=== PATIENT | female | born 2000 | race Hispanic/Latino ===

== ENCOUNTER 2020-04-04 16:02 | Emergency (ER) | payer OTHER, MEDICAID, SELFPAY ==
[2020-04-04 16:10] VITALS: BP 126/73; PULSE 73; RESP 16; TEMP 36.7; O2SAT 97; BMI 21.9
--- NOTE | 2020-04-04 18:00 | ED.FEMALEGU ---
HPI - Female Genitourinary General Chief complaint: OB/Uterine Contractions Stated complaint: NON STOP PERIOD Time Seen by Provider: 04/04/20 17:52 Source: patient Mode of arrival: Ambulatory Limitations: no limitations Patient History Substance Use Type: does not use Exam Initial Vital Signs Initial Vital Signs: Vital Signs Temperature 98.0 F 04/04/20 16:10 Pulse Rate 73 04/04/20 16:10 Respiratory Rate 16 04/04/20 16:10 Blood Pressure 126/73 04/04/20 16:10 Pulse Oximetry 97 04/04/20 16:10 Course Vital Signs Vital signs: Vital Signs - 8 hr 04/04/20 16:10 Temperature 98.0 F Pulse Rate 73 Respiratory Rate 16 Blood Pressure 126/73 Pulse Oximetry 97
--- NOTE | 2020-04-04 18:10 | DI.US.S_ITS ---
PROCEDURE: US OB <= 14 WEEKS FETUS INDICATIONS: 11 weeks bleeding TECHNIQUE: Real-time scanning was performed of the fetus and maternal pelvic organs, with image documentation. Endovaginal scanning was also performed to better visualize the fetus and maternal ovaries. COMPARISON: None. FINDINGS: Embryo: No intrauterine gestational sac is seen. Uterus measures 8.8 x 4.4 x 5.8 cm in size. Endometrium measures 7 millimeters in thickness. No pole or cardiac activity is detected. Measurement variability in dating: +/- 4 weeks by LMP, +/- 7 days by mean sac diameter (use before 6 weeks gestation if crown-rump length not able to be measured), +/- 5 days by crown-rump length (up to 8 weeks 6 days gestation), +/- 7 days by crown-rump length (up to 13 weeks 6 days gestation). Maternal organs: Right ovary is surgically absent. Left ovary measures 4 x 1.9 x 2.9 cm in size. No solid appearing ovarian lesion. Normal blood flow is seen in left ovary on color Doppler images.. Limited images through the kidneys demonstrate no hydronephrosis. IMPRESSION: 1. No evidence of intrauterine . Please correlate with serial beta hCG levels and follow-up ultrasound. 2. Prior surgical absence of right ovary. Normal appearing left ovary. No pelvic free fluid. Dictated by: Zana Echeverria M.D. on 04/04/2020 at 18:25 Approved by: Zana Echeverria M.D. on 04/04/2020 at 18:27
[2020-04-04 18:14] VITALS: PULSE 79; O2SAT 100
[2020-04-04 18:30] VITALS: BP 113/68; PULSE 81; O2SAT 100
[2020-04-04 19:00] VITALS: BP 104/59; PULSE 72; O2SAT 100
--- NOTE | 2020-04-04 19:03 | ED_ITS ---
HPI - Female Genitourinary General Chief complaint: OB/Uterine Contractions Stated complaint: NON STOP PERIOD Time Seen by Provider: 04/04/20 17:52 Source: patient Mode of arrival: Ambulatory Limitations: no limitations History of Present Illness HPI Narrative: 19F non smoker without medical history presents is at 11 weeks (by dates) with the chief complaint of painless vaginal bleeding over the past 2 weeks or so. She states that is very light, spotting most the time but on 2 occasions she did pass a small clot. She denies any ongoing pain but states she had a very quick episode a few days ago. She has had no nausea or vomiting nor any fever chills. She denies any urinary complaints. She had been seen by her primary care provider but was in the process of being referred to our associate professor of criminal justice today and was actually initially sent to [facility] today, but then sent here from there. She is not dizzy nor weak or lightheaded. She denies any shortness of breath. She denies any ultrasounds thus far. MD Complaint: vaginal bleeding Onset (ago): week(s) Severity: mild Vaginal discharge: dark blood Patient : Yes Associated symptoms: vaginal bleeding Review of Systems Constitutional Constitutional: Denies chills, Denies fatigue, Denies fever(s), Denies frequent falls, Denies lethargy and Denies weakness Eyes Eyes: Denies change in vision, Denies eye discharge, Denies irritation and Denies loss of vision ENT Ears, Nose, Mouth, and Throat: Denies change in voice, Denies dizziness, Denies neck pain, Denies sore throat and Denies throat swelling Cardiovascular Cardiovascular: Denies chest pain, Denies irregular heart rhythm, Denies lightheadedness, Denies palpitations, Denies dyspnea, Denies dyspnea on exertion and Denies orthopnea Respiratory Respiratory: Denies cough, Denies dyspnea, Denies dyspnea on exertion and Denies wheezing Gastrointestinal Gastrointestinal: Denies abdominal pain, Denies change in bowel habits, Denies diarrhea, Denies nausea and Denies vomiting Genitourinary Genitourinary: Reports abnormal vaginal bleeding Musculoskeletal Musculoskeletal: Denies neck pain and Denies numbness Integumentary/Breasts Skin/Breast: Denies pruritus, Denies erythema, Denies rash and Denies wounds Neurologic Neurologic: Denies behavioral changes, Denies confusion, Denies dizziness, Denies frequent falls, Denies loss of vision, Denies numbness and Denies weakness Psychiatric Psychiatric: Denies anxiety, Denies behavioral changes, Denies confusion, Denies depression, Denies homicidal ideation and Denies suicidal ideation Endocrine Endocrine: Denies fatigue, Denies flushing and Denies palpitations Hematologic/Lymphatic Hematologic/Lymphatic: Denies easy bruising Allergic/Immunologic Allergic/Immunologic: Denies urticaria, Denies throat swelling and Denies wheezing Patient History Substance Use Type: does not use Exam Narrative Exam Narrative: GENERAL: 19] year old patient appears stated age. Well- nourished, well-developed patient, in mild distress. HEAD: Atraumatic. Normocephalic. EYES: Pupils equal round and reactive. Extraocular motions intact. No scleral icterus. No injection or drainage. ENT: Nose without bleeding, purulent drainage. Throat without erythema, tonsillar hypertrophy or exudate. Airway patent. NECK: Trachea midline. Non tender CARDIOVASCULAR: Regular rate and rhythm without murmurs, gallops, or rubs. RESPIRATORY: Clear to auscultation. Breath sounds equal bilaterally. No wheezes, rales, or rhonchi. GASTROINTESTINAL: Abdomen soft, non-tender, nondistended. EXTREMITIES: No edema or joint tenderness. BACK: Nontender without deformity or crepitance. No flank tenderness. NEURO: AOx3. SKIN: No rash or erythema of visible areas Initial Vital Signs Initial Vital Signs: Vital Signs Temperature 98.0 F 04/04/20 16:10 Pulse Rate 73 04/04/20 16:10 Respiratory Rate 16 04/04/20 16:10 Blood Pressure 126/73 04/04/20 16:10 Pulse Oximetry 97 04/04/20 16:10 Course Orders Ordered: ED Orders 04/04/20 18:10 US OB <= 14 weeks fetus Stat 04/04/20 18:34 Basic Metabolic Panel Stat Complete Blood Count AUTO DIFF Stat HCG Quantitative /Beta subunit Stat Type and Screen Stat Vital Signs Vital signs: Vital Signs - 8 hr 04/04/20 19:00 04/04/20 19:30 04/04/20 20:24 Pulse Rate 72 72 77 Respiratory Rate 14 Blood Pressure 104/59 L 111/71 114/71 Pulse Oximetry 100 99 99 MDM - Female Genitourinary Lab Data Result diagrams: 04/04/20 18:34 04/04/20 18:34 Labs: Lab Results 04/04/20 04/04/20 04/04/20 Range/Units 18:34 18:34 18:34 WBC 6.4 (4.5-11.0) X10^3/uL RBC 4.81 (4.0-5.2) X10^6/uL Hgb 13.9 (12.0-16.0) g/dL Hct 41.6 (36-46) % MCV 86.6 (80-100) fL MCH 28.9 (26-34) PG MCHC 33.4 (30-36) % RDW 13.8 (11.6-14.8) % Plt Count 202 (150-400) X10^3/uL Neut % (Auto) 60.5 (50-75) % Lymph % (Auto) 29.0 (25-40) % Clinch % (Auto) 7.9 (3-14) % Eos % (Auto) 2.3 (2-4) % Baso % (Auto) 0.3 (0-2) % Neut # (Auto) 3900 (4507-2105) /uL Lymph # (Auto) 1900 (2273-7326) /uL Clinch # (Auto) 500 (0-900) /uL Eos # (Auto) 100 (0-450) /uL Baso # (Auto) 0 (0-100) /uL Sodium 139 (137-145) mmol/L Potassium 3.9 (3.4-5.1) mmol/L Chloride 105 (98-107) mmol/L Carbon Dioxide 27 (22-32) mmol/L BUN 9 (7-17) mg/dL Creatinine 0.52 (0.52-1.04) mg/dL Estimated GFR > 60.0 (>60) mL/min BUN/Creatinine Ratio 17.3 (6-22) Glucose 90 (70-100) mg/dL Calcium 9.5 (8.4-10.2) mg/dL HCG, Quant 48.5 mIU/mL Blood Type O Positive Antibody Screen Negative Imaging Data US - OB: Radiologist's Impression: [address] [id number] ReportSigned Patient: Melvi Valenzuelamervat#: [id number]: 2000Acct:[id number]/Sex: 19 / FDate of Service: 04/04/20Loc: EDAccession Number: [id number] Procedure: US OB <= 14 weeks fetus Ordering Provider: Konstantin Mckeon D.O. PROCEDURE: US OB <= 14 WEEKS FETUS INDICATIONS: 11 weeks bleeding TECHNIQUE: Real-time scanning was performed of the fetus and maternal pelvic organs, with image documentation. Endovaginal scanning was also performed to better visualize the fetus and maternal ovaries. COMPARISON: None. FINDINGS: Embryo: No intrauterine gestational sac is seen. Uterus measures 8.8 x 4.4 x 5.8 cm in size. Endometrium measures 7 millimeters in thickness. No pole or cardiac activity is detected. Measurement variability in dating: +/- 4 weeks by LMP, +/- 7 days by mean sac diameter (use before 6 weeks gestation if crown-rump length not able to be measured), +/- 5 days by crown-rump length (up to 8 weeks 6 days gestation), +/- 7 days by crown-rump length (up to 13 weeks 6 days gestation). Maternal organs: Right ovary is surgically absent. Left ovary measures 4 x 1.9 x 2.9 cm in size. No solid appearing ovarian lesion. Normal blood flow is seen in left ovary on color Doppler images.. Limited images through the kidneys demonstrate no hydronephrosis. IMPRESSION: 1. No evidence of intrauterine . Please correlate with serial beta hCG levels and follow-up ultrasound. 2. Prior surgical absence of right ovary. Normal appearing left ovary. No pelvic free fluid. Dictated by: Zana Echeverria M.D. on 04/04/2020 at 18:25 Approved by: Zana Echeverria M.D. on 04/04/2020 at 18:27 MDM Narrative Medical decision making narrative: at 11 weeks by dates with spotting and no pain. HCG only in the 40s and US demonstrates no IUP. Likely a missed AB, but explained importance of follow up and serial labs to rule out ectopic. Patient verbalizes understanding. She's given return precautions and has questions answered to her apparent satisfaction Discharge Plan Departure Patient Disposition: Home Clinical Impression: , missed Instructions: DI for Vaginal Bleeding During Activity Restrictions/Additional Instructions: *You have been diagnosed with [ vaginal bleeding with . Given the duration and lack of findings on ultrasound I am concerned you may have had a miscarriage. ] *What to do: *Take medications as directed: Tylenol or Motrin for pain *Follow up with your primary care provider in 2-3 days, call for an appointment. Let them know you were seen in the Emergency Department and that we ask that you be seen in follow up. Also, please consider contacting our local brickmason supervisor doctors to follow this up. You will need repeat blood work in 48-72 hours and possibly another ultrasound *Return to ER if you should have any new, worsening or concerning symptoms, such as [pain, fever greater than 101 F, bleeding through more than 1 pad per hour or other bothersome symptoms] Referrals: Magali Wadsworth MD [Physician] - Miscellaneous,MD Filomena [Primary Care Provider] -
[2020-04-04 19:09] LABS: Add Manual Diff / Slide Review NO; Basophils Absolute Auto 0 /uL (0-100); Basophils Percent Auto 0.3 % (0-2); Eosinophils Absolute Auto 100 /uL (0-450); Eosinophils Percent Auto 2.3 % (2-4); Hematocrit 41.6 % (36-46); Hemoglobin 13.9 g/dL (12.0-16.0); Lymphocytes Absolute Auto 1900 /uL (1100-4500); Mean Corpuscular HGB Conc 33.4 % (30-36); Mean Corpuscular Hemoglobin 28.9 PG (26-34); Mean Corpuscular Volume 86.6 fL (80-100); Monocytes Absolute Auto 500 /uL (0-900); Monocytes Percent Auto 7.9 % (3-14); Neutrophils Absolute Auto 3900 /uL (1500-7000); Neutrophils Percent Auto 60.5 % (50-75); Platelet Count 202 X10^3/uL (150-400); Red Blood Cell Count 4.81 X10^6/uL (4.0-5.2); Red Cell Distribution Width 13.8 % (11.6-14.8); White Blood Cell Count 6.4 X10^3/uL (4.5-11.0)
[2020-04-04 19:12] LABS: BUN Creatinine Ratio 17.3 (6-22); Blood Urea Nitrogen 9 mg/dL (7-17); Calcium 9.5 mg/dL (8.4-10.2); Carbon Dioxide 27 mmol/L (22-32); Chloride 105 mmol/L (98-107); Estimated Glomerular Filt Rate > 60.0 mL/min (>60); Glucose 90 mg/dL (70-100); HEMOLYSIS < 15 (0-50); Potassium 3.9 mmol/L (3.4-5.1); Sodium 139 mmol/L (137-145)
[2020-04-04 19:29] LABS: HCG Quantitative /Beta subunit 48.5 mIU/mL
[2020-04-04 19:30] VITALS: BP 111/71; PULSE 72; O2SAT 99
[2020-04-04 20:24] VITALS: BP 114/71; PULSE 77; RESP 14; O2SAT 99
== END 2020-04-04 20:25 | disposition home or self-care (01) ==
PROVIDERS: Emergency Provider Emergency Medicine
DX: O02.1 Missed abortion (principal)
CPT/HCPCS: 36415; 76801; 76830; 80048; 84702; 85025; 86850; 86900; 86901; 99281; 99284

== ENCOUNTER → 2020-04-06 13:21 | Outpatient (CLI) | payer OTHER, MEDICAID, SELFPAY ==
[2020-04-06 15:13] LABS: HCG Quantitative /Beta subunit 30.5 mIU/mL
== END ==
PROVIDERS: Referring Provider Obstetrics & Gynecology; Visit Provider Obstetrics & Gynecology
DX: O02.1 Missed abortion (principal)
CPT/HCPCS: 36415; 84702

== ENCOUNTER → 2020-08-17 11:17 | Outpatient (CLI) | payer OTHER, MEDICAID, SELFPAY ==
--- NOTE | 2020-08-17 11:18 | DI.US.S_ITS ---
PROCEDURE: US OB <= 14 WEEKS FETUS INDICATIONS: DATING AND VIABILITY. LAST MENSTRUAL PERIOD 06/18/20 OUTSIDE/PRIOR DATING DATA: Last menstrual period (LMP): 06/18/20 LMP-based estimated date of delivery (ROSALINDA): 03/25/21. First dating scan (date and location): This study. Estimated date of delivery (ROSALINDA) from first dating scan: 04/11/21, +/-7 days, based on gestational sac visualization.. TECHNIQUE: Real-time scanning was performed of the fetus and maternal pelvic organs, with image documentation. Endovaginal scanning was also performed to better visualize the fetus and maternal ovaries. COMPARISON: [facility], OB <= 14 WEEKS FETUS, 04/04/2020, 18:38. FINDINGS: Embryo: Not seen but a yolk sac within a gestational stack is present with a mean sac diameter 1.3 cm. This correlates with a gestational age estimate of 6 weeks 1 day, +/-7 days based on mean sac diameter. What appears to be potentially a pole is identified, but without cardiac activity. A small perigestational hematoma appears present adjacent to the gestational sac measuring 1.4 x 1.6 x 4.0 cm. Measurement variability in dating: +/- 4 weeks by LMP, +/- 7 days by mean sac diameter (use before 6 weeks gestation if crown-rump length not able to be measured), +/- 5 days by crown-rump length (up to 8 weeks 6 days gestation), +/- 7 days by crown-rump length (up to 13 weeks 6 days gestation). Maternal organs: Ovaries appear normal. IMPRESSION: An intrauterine gestational sac with yolk sac within is present but a viable gestation is not yet seen. The current estimated gestational age is 6 weeks 1 day, +/-7 days, and follow-up repeat OB ultrasound in 7-10 days is likely warranted. No ectopic is suspected. Note is made of a small perigestational implantation bleed measuring 1.4 x 1.6 x 4.0 cm. Dictated by: Ming Pereyra M.D. on 08/17/2020 at 15:33 Approved by: Ming Pereyra M.D. on 08/17/2020 at 15:49
== END ==
PROVIDERS: PCP Physician Assistant Medical; Referring Provider Family Medicine; Visit Provider Family Medicine
DX: Z36.87 Encounter for antenatal screening for uncertain dates (principal); Z3A.01 Less than 8 weeks gestation of pregnancy
CPT/HCPCS: 76801; 76830

== ENCOUNTER → 2020-08-22 12:36 | Outpatient (CLI) | payer OTHER, MEDICAID, SELFPAY ==
[2020-08-22 14:52] LABS: HCG Quantitative /Beta subunit 21123 mIU/mL
== END ==
PROVIDERS: PCP Physician Assistant Medical; Referring Provider Family Medicine; Visit Provider Family Medicine
DX: Z34.90 Encounter for supervision of normal pregnancy, unspecified, unspecified trimester (principal)
CPT/HCPCS: 36415; 84702

== ENCOUNTER → 2020-08-24 09:24 | Outpatient (CLI) | payer OTHER, MEDICAID, SELFPAY | PROVIDERS: PCP Physician Assistant Medical; Referring Provider Family Medicine; Visit Provider Family Medicine | DX: Z34.90 Encounter for supervision of normal pregnancy, unspecified, unspecified trimester (principal) | CPT/HCPCS: 36415; 84702 ==

== ENCOUNTER → 2020-09-14 10:39 | Outpatient (CLI) | payer OTHER, MEDICAID, SELFPAY ==
--- NOTE | 2020-09-14 10:40 | DI.US.S_ITS ---
PROCEDURE: US PELVIC COMPLETE INDICATIONS: missed ab TECHNIQUE: Real-time scanning was performed of the pelvic organs, with image documentation. Additional endovaginal scanning was necessary due to incomplete visualization of the adnexal and endometrial structures by transabdominal scanning. COMPARISON: None. FINDINGS: Uterus: Uterus is normal in size at 5 x 4.6 x 6.1 cm. The endometrial stripe is thickened and irregular, measuring up to 17 mm. Along the endometrial stripe, there is nonvascular debris seen. No abnormal vascularity can be seen along the endometrial stripe. Ovaries: Status post right oophorectomy. The left ovary measures 3.6 x 2 x 2.4 cm. No adnexal masses are seen on either side. Other: No pathologic free abdominal or pelvic fluid. IMPRESSION: No hypervascular retained products of conception can be seen. Heterogeneous nonvascular soft tissue can be seen along the endometrial stripe, which is attributed to hemorrhagic debris. If clinically appropriate, please consider short-term follow-up ultrasound. Dictated by: Sebastian Oconnell M.D. on 09/14/2020 at 11:24 Approved by: Sebastian Oconnell M.D. on 09/14/2020 at 11:25
== END ==
PROVIDERS: PCP Physician Assistant Medical; Referring Provider Family Medicine; Visit Provider Family Medicine
DX: O02.1 Missed abortion (principal); Z3A.01 Less than 8 weeks gestation of pregnancy
CPT/HCPCS: 36415; 76830; 76856; 84702

== ENCOUNTER → 2020-09-14 11:27 | Outpatient (CLI) | payer OTHER, MEDICAID, SELFPAY ==
[2020-09-14 12:55] LABS: HCG Quantitative /Beta subunit 1561.6 mIU/mL
== END ==
PROVIDERS: PCP Physician Assistant Medical; Referring Provider Family Medicine; Visit Provider Family Medicine
DX: O02.1 Missed abortion (principal); Z3A.01 Less than 8 weeks gestation of pregnancy
CPT/HCPCS: 36415; 84702

== ENCOUNTER → 2020-09-21 15:30 | Outpatient (CLI) | payer OTHER, MEDICAID, SELFPAY ==
[2020-09-21 16:41] LABS: HCG Quantitative /Beta subunit 80.7 mIU/mL
== END ==
PROVIDERS: PCP Physician Assistant Medical; Referring Provider Family Medicine; Visit Provider Family Medicine
DX: Z34.90 Encounter for supervision of normal pregnancy, unspecified, unspecified trimester (principal); Z3A.01 Less than 8 weeks gestation of pregnancy
CPT/HCPCS: 36415; 84702

== ENCOUNTER → 2020-09-27 17:34 | Outpatient (CLI) | payer OTHER, MEDICAID, SELFPAY | PROVIDERS: PCP Physician Assistant Medical; Referring Provider Family Medicine; Visit Provider Family Medicine | DX: O02.1 Missed abortion (principal) | CPT/HCPCS: 36415; 84702 ==

== ENCOUNTER → 2020-12-21 14:07 | Outpatient (CLI) | payer OTHER, MEDICAID, SELFPAY ==
[2020-12-21 18:38] LABS: HCG Quantitative /Beta subunit 12750 mIU/mL
== END ==
PROVIDERS: PCP Physician Assistant Medical; Referring Provider Family Medicine; Visit Provider Family Medicine
DX: Z34.81 Encounter for supervision of other normal pregnancy, first trimester (principal)
CPT/HCPCS: 36415; 84702

== ENCOUNTER → 2020-12-23 08:08 | Outpatient (CLI) | payer OTHER, MEDICAID, SELFPAY ==
--- NOTE | 2020-12-23 08:09 | DI.US.S_ITS ---
PROCEDURE: US OB <= 14 WEEKS FETUS INDICATIONS: RULE OUT ECTOPIC OUTSIDE/PRIOR DATING DATA: Last menstrual period (LMP): 11/07/20. LMP-based estimated date of delivery (ROSALINDA): 08/14/21. First dating scan (date and location): 12/23/20, current study. Estimated date of delivery (ROSALINDA) from first dating scan: 08/18/21. TECHNIQUE: Real-time scanning was performed of the fetus and maternal pelvic organs, with image documentation. Endovaginal scanning was also performed to better visualize the fetus and maternal ovaries. COMPARISON: [facility], OB <= 14 WEEKS FETUS, 08/17/2020, 11:25. FINDINGS: Embryo: An intrauterine is present including a single pole with an average crown-rump length of 3.5 mm corresponding to a six week, 0 day, plus or minus four days gestation. There is detectable cardiac activity in the fetus at a rate of 110 beats per minute. A normal yolk sac is present. Measurement variability in dating: +/- 4 weeks by LMP, +/- 7 days by mean sac diameter (use before 6 weeks gestation if crown-rump length not able to be measured), +/- 5 days by crown-rump length (up to 8 weeks 6 days gestation), +/- 7 days by crown-rump length (up to 13 weeks 6 days gestation). Maternal organs: Vertically oriented, slightly retroflexed uterus contains a fundal gestational sac with a mild decidual response. There is a small perigestational bleed measuring 3.4 x 2.4 x 1.1 cm. The right ovary is surgically absent. The left ovary appears normal and contains a corpus luteum cyst. There is a small amount of fluid in the cul-de-sac. IMPRESSION: 1. Single living intrauterine with a gestational age of six weeks, 0 days, and estimated due date of 08/18/21. 2. Small perigestational hemorrhage. The cervix is closed. Clinical follow-up recommended. Dictated by: Rhona Bardales M.D. on 12/23/2020 at 12:15 Approved by: Rhona Bardales M.D. on 12/23/2020 at 12:19
[2020-12-23 11:04] LABS: HCG Quantitative /Beta subunit 18705 mIU/mL
== END ==
PROVIDERS: PCP Physician Assistant Medical; Referring Provider Family Medicine; Visit Provider Family Medicine
DX: O46.91 Antepartum hemorrhage, unspecified, first trimester (principal); Z3A.01 Less than 8 weeks gestation of pregnancy
CPT/HCPCS: 36415; 76801; 76817; 84702

== ENCOUNTER → 2021-01-09 14:19 | Outpatient (CLI) | payer OTHER, MEDICAID, SELFPAY ==
[2021-01-09 15:32] LABS: Appearance Urine UA CLEAR; Bilirubin Urine UA NEGATIVE (NEGATIVE); Color Urine UA YELLOW; Glucose Urine UA NEGATIVE (Negative); Ketones Urine UA NEGATIVE (NEGATIVE); Leukocyte Esterase Urine UA NEGATIVE (NEGATIVE); Nitrite Urine UA NEGATIVE (Negative); Occult Blood Urine UA NEGATIVE (Negative); Protein Urine UA NEGATIVE (Negative); Specific Gravity Urine UA 1.015 (1.000-1.035); Urobilinogen Urine UA 0.2 E.U./dL (0.2)
[2021-01-09 15:34] LABS: Add Manual Diff / Slide Review NO; Basophils Absolute Auto 0 /uL (0-100); Basophils Percent Auto 0.3 % (0-2); Eosinophils Absolute Auto 0 /uL (0-450); Eosinophils Percent Auto 0.5 % (2-4); Hematocrit 37.7 % (36-46); Hemoglobin 12.5 g/dL (12.0-16.0); Lymphocytes Absolute Auto 1800 /uL (1100-4500); Lymphocytes Percent Auto 26.3 % (25-40); Mean Corpuscular HGB Conc 33.2 % (30-36); Mean Corpuscular Hemoglobin 28.2 PG (26-34); Monocytes Absolute Auto 600 /uL (0-900); Monocytes Percent Auto 8.2 % (3-14); Neutrophils Absolute Auto 4400 /uL (1500-7000); Neutrophils Percent Auto 64.7 % (50-75); Platelet Count 193 X10^3/uL (150-400); Red Blood Cell Count 4.43 X10^6/uL (4.0-5.2); Red Cell Distribution Width 13.9 % (11.6-14.8); White Blood Cell Count 6.8 X10^3/uL (4.5-11.0)
[2021-01-09 15:53] LABS: pH Urine UA 7.5 (4.5-8.0)
[2021-01-09 18:11] LABS: Hepatitis B Surface Antigen NEGATIVE s/c (NEGATIVE); Rubella Antibody IgG 4.4 IU/mL (>15)
[2021-01-09 18:40] LABS: HIV 1 & 2 Ab/Ag 4th Gen Combo NEGATIVE (NEGATIVE); Hep C Virus Ab w/Reflex Quant NEGATIVE s/c (NEGATIVE)
[2021-01-10 07:10] LABS: RPR Screen Non Reactive (Non Reactive)
[2021-01-10 08:40] LABS: Varicella IgG Antibody 298 index (Immune >165)
== END ==
PROVIDERS: PCP Physician Assistant Medical; Referring Provider Family Medicine; Visit Provider Family Medicine
DX: Z34.81 Encounter for supervision of other normal pregnancy, first trimester (principal)
CPT/HCPCS: 36415; 80055; 81003; 86787; 86803; 86850; 86900; 86901; 87086; 87389

== ENCOUNTER → 2021-04-18 12:15 | Outpatient (CLI) | payer OTHER, MEDICAID, SELFPAY ==
--- NOTE | 2021-04-18 12:16 | DI.US.S_ITS ---
PROCEDURE: US OB >= 14 WEEKS FETUS INDICATIONS: ANATOMY SCREENING OUTSIDE/PRIOR DATING DATA: Last menstrual period (LMP): November 07, 2020 LMP-based estimated date of delivery (ROSALINDA): August 14, 2021 First dating scan (date and location): December 23, 2020 Estimated date of delivery (ROSALINDA) from first dating scan: August 18, 2021 The calculations are made using the ultrasound ROSALINDA of August 18, 2021 TECHNIQUE: Real-time scanning was performed of the fetus, with image documentation and biometric measurements. Endovaginal scanning: Performed COMPARISON: None. FINDINGS: General: A single living intrauterine gestation is present. Presentation: Variable Placenta: Placental position is anterior, without previa. Amniotic fluid index: 16.6 cm, normal range is 5-24 cm. Single deepest vertical pocket is 5.1 cm. heart rate: 145 beats per minute. Maternal cervical canal: Closed and 5.2 cm long. Normal lower limit is 2.5 cm. biometrics: Biparietal diameter: 22 weeks 6 days Head circumference: 22 weeks 5 days Abdominal circumference: 23 weeks 0 days Femur length: 22 weeks 5 days Clinically estimated gestational age: 22 weeks 4 days Composite gestational age from present scan: 22 weeks 6 days Estimated weight and percentile: 538 grams; 56th percentile Anatomic survey: Neuro: Ventricles are non-dilated at less than 10 mm. Cisterna magna is normal at 3-11 mm. Cerebellum is normal in size and morphology. Nuchal skin fold: Normal at less than 6 mm between 14-21 weeks gestational age. Face: Nose and lips, facial profile are normal. Spine: No evidence for spina bifida. Heart: 4-chambered heart is present, with normal ventricular outflow tracts. Diaphragm: Diaphragm is intact. Stomach: Left-sided stomach is present. Debris noted within the stomach. Kidneys: No hydronephrosis. Normal is less than 5 mm in 2nd trimester, less than 7 mm in 3rd trimester. Cord: 3-vessel cord has eccentric insertion approximately 2.3 centimeters from placental edge. Bladder: Normal in size. Extremities: All 4 extremities identified. IMPRESSION: 1. Single living intrauterine with appropriate interval growth. 2. Placental cord insertion eccentric at approximately 2.3 centimeters from placental edge. 3. Isoechoic debris within the stomach. Recommend follow-up ultrasound in 2 weeks to ensure resolution of the finding. 4. Otherwise, normal anatomic survey. Dictated by: Dorothea Saini MD, PhD on 04/18/2021 at 15:23 We strive to produce accurate, complete, and clear reports of imaging services. To assist us in improving patient care, this report was composed using standard report templates and voice recognition software. Therefore, it may contain abnormal punctuation, misrecognitions, insertions and/or omissions. Occasional wrong-word or sound-alike substitutions may occur. Though we review the report and make efforts to correct it, we do recommend that the report be read carefully in proper context to recognize any text inaccuracies. Approved by: Dorothea Saini MD, PhD on 04/18/2021 at 15:35
== END ==
PROVIDERS: PCP Physician Assistant Medical; Referring Provider Family Medicine; Visit Provider Family Medicine
DX: Z36.89 Encounter for other specified antenatal screening (principal); Z3A.22 22 weeks gestation of pregnancy
CPT/HCPCS: 76811

== ENCOUNTER → 2021-05-26 11:09 | Outpatient (CLI) | payer OTHER, MEDICAID, SELFPAY ==
--- NOTE | 2021-05-26 11:10 | DI.US.S_ITS ---
PROCEDURE: US OB FOLLOW UP INDICATIONS: anatomy f/u, debris in fetus stomach OUTSIDE/PRIOR DATING DATA: Last menstrual period (LMP): 11/07/2020. LMP-based estimated date of delivery (ROSALINDA): 08/14/2021. First dating scan (date and location): 12/23/2020. Estimated date of delivery (ROSALINDA) from first dating scan: 08/18/2021. TECHNIQUE: Real-time scanning was performed of the fetus, with image documentation and biometric measurements. Endovaginal scanning: None COMPARISON: None. FINDINGS: General: A single living intrauterine gestation is present. Presentation: Transverse maternal right. Placenta: Placental position is anterior , without previa. Amniotic fluid index: 16.9 cm, normal range is 5-24 cm. heart rate: 145 beats per minute. Maternal cervical canal: 3.9 cm long. Normal lower limit is 2.5 cm. Composite gestational age from present scan: 28 week 0 day Anatomic survey: Stomach and stomach contents unremarkable. Remainder of the visualized anatomy is within normal limits IMPRESSION: 1. Single live intrauterine consistent with 28 week 0 day gestation. 2. Stomach and stomach contents unremarkable. Remainder of the visualized anatomy is within normal limits. Note: At the end of the exam, the patient experienced a syncopal episode, and the patient was transferred to the emergency department for evaluation. Approved by: Kuldip Bird M.D. on 05/26/2021 at 12:51
== END ==
PROVIDERS: PCP Physician Assistant Medical; Referring Provider Family Medicine; Visit Provider Family Medicine
DX: Z36.2 Encounter for other antenatal screening follow-up (principal); Z3A.28 28 weeks gestation of pregnancy
CPT/HCPCS: 76816

== ENCOUNTER 2021-05-26 11:51 | Emergency (ER) | payer OTHER, MEDICAID, SELFPAY ==
[2021-05-26] VITALS (12 sets, daily range): BP systolic 86–108; BP diastolic 49–67; PULSE 68–107; RESP 18–41; TEMP 36.2; O2SAT 99–100
[2021-05-26 12:10] LABS: Add Manual Diff / Slide Review NO; Basophils Absolute Auto 0 /uL (0-100); Basophils Percent Auto 0.5 % (0-2); Eosinophils Absolute Auto 0 /uL (0-450); Eosinophils Percent Auto 0.4 % (2-4); Hematocrit 27.8 % (36-46); Hemoglobin 9.3 g/dL (12.0-16.0); Lymphocytes Absolute Auto 1200 /uL (1100-4500); Lymphocytes Percent Auto 24.3 % (25-40); Mean Corpuscular HGB Conc 33.3 % (30-36); Mean Corpuscular Hemoglobin 28.9 PG (26-34); Monocytes Absolute Auto 700 /uL (0-900); Monocytes Percent Auto 14.5 % (3-14); Neutrophils Absolute Auto 2900 /uL (1500-7000); Neutrophils Percent Auto 60.3 % (50-75); Platelet Count 161 X10^3/uL (150-400); Red Cell Distribution Width 13.6 % (11.6-14.8); White Blood Cell Count 4.8 X10^3/uL (4.5-11.0)
--- NOTE | 2021-05-26 12:13 | ED_ITS ---
HPI - Syncope <Live Fong PA-C - Last Filed: 05/26/21 13:34> General Chief Complaint: Syncope Stated Complaint: Syncope Time Seen by Provider: 05/26/21 12:03 Source: patient and other Mode of arrival: other History of Present Illness HPI narrative: Patient is a 21-year-old female presenting to the ER after suffering a syncopal episode and ultrasound department. Patient was here for an outpatient ultrasound after OB had some concerns about the position of the baby. While in ultrasound patient had a syncopal episode witnessed by the biochemistry technologist ED was called to the ultrasound area patient was found to be unresponsive to painful stimuli. Nursing staff reports patient was unresponsive for a few minutes. Patient was taken to the emergency room for evaluation. Patient has regained consciousness is fully awake and alert and oriented. Patient reports the syncopal episodes have been going on for the past few weeks and she has not mentioned this to her OB. She admits to taking folic acid and B12 and has a history of anemia. Patient is . No reported concerns or issues with her thus far patient denies any vaginal bleeding or vaginal discharge or dysuria. is home and has been having fever like symptoms but she denies any fever body aches chills cough loss of sense loss of smell or taste. She is not current on her vaccinations for COVID. She denies any headache visual changes dizziness nausea vomiting diarrhea. Related Data Home Medications Medication Instructions Recorded Confirmed albuterol sulfate 90 mcg/actuation 2 puff INHALATION Q6H PRN 08/17/20 08/17/20 aerosol inhaler prenat.vits,krzysztof,[id number]-[id number]-[id number] 1 tab PO DAILY 08/17/20 08/17/20 Previous Rx's Medication Instructions Recorded ondansetron 4 mg disintegrating 4 mg PO Q8H PRN #10 tab 09/09/20 tablet Allergies Allergy/AdvReac Type Severity Reaction Status Date / Time No Known Drug Allergies Allergy Verified 01/03/21 10:08 Review of Systems <Live Fong PA-C - Last Filed: 05/26/21 13:34> Review of Systems ROS Unobtainable: All systems reviewed & are unremarkable except as noted in HPI and below Constitutional Constitutional: Denies chills, Denies fatigue, Denies fever(s), Denies frequent falls, Denies lethargy and Denies weakness Eyes Eyes: Denies change in vision, Denies eye discharge, Denies irritation and Denies loss of vision ENT Ears, Nose, Mouth, and Throat: Denies change in voice, Denies dizziness, Denies neck pain, Denies sore throat and Denies throat swelling Cardiovascular Cardiovascular: Denies chest pain, Reports syncope, Denies irregular heart rhythm, Denies lightheadedness, Denies palpitations, Denies dyspnea, Denies dys pnea on exertion and Denies orthopnea Respiratory Respiratory: Denies cough, Denies dyspnea, Denies dyspnea on exertion and Denies wheezing Gastrointestinal Gastrointestinal: Denies abdominal pain, Denies change in bowel habits, Denies diarrhea, Denies nausea and Denies vomiting Genitourinary Genitourinary: Denies hematuria, Denies flank pain, Denies urinary incontinence and Denies urinary urgency Musculoskeletal Musculoskeletal: Denies back pain, Denies muscle weakness, Denies neck pain, Denies numbness and Denies tingling Integumentary/Breasts Skin/Breast: Denies pruritus, Denies erythema, Denies rash and Denies wounds Neurologic Neurologic: Denies behavioral changes, Denies confusion, Denies dizziness, Reports syncope, Denies frequent falls, Denies loss of vision, Denies numbness, Denies tingling and Denies weakness Psychiatric Psychiatric: Denies anxiety, Denies behavioral changes, Denies confusion, Denies depression, Denies homicidal ideation and Denies suicidal ideation Endocrine Endocrine: Denies fatigue, Denies flushing and Denies palpitations Hematologic/Lymphatic Hematologic/Lymphatic: Denies easy bruising Allergic/Immunologic Allergic/Immunologic: Denies urticaria, Denies throat swelling and Denies wheezing Patient History <Live Fong PA-C - Last Filed: 05/26/21 13:34> Medical History Cancer (~2013) Exercise-induced asthma (~2019) Germ cell tumor of ovary (~12/2013) Hearing loss (~2013) History of being hospitalized (~2013) History of chemotherapy (~01/2014) SAB (spontaneous ) (~04/04/20) SAB (spontaneous ) (~08/17/20) Tumor (~2013) Surgical History History of laparoscopy (~01/20/14) History of removal of Port-a-Cath (~05/07/14) Status post surgery (~02/11/14) Family History Mother Hyperlipidemia Twin delivered Father No problems noted. Grandmother Liver problem Grandfather Cardiac anomaly Grandmother No problems noted. Grandfather No problems noted. Brother No problems noted. Sister No problems noted. Social History marital status: household members: spouse and other (Brother) lives independently: Yes caregiver/support person: No pets and animals: No education level: high school occupational status: unemployed current occupational exposures/hazards: No special yelena needs: No Smoking Status: Never smoker second hand exposure: No alcohol intake: never substance use type: does not use Smoking Status: Never smoker alcohol intake frequency: other Substance Use Type: does not use Exam <Live Fong PA-C - Last Filed: 05/26/21 13:34> Initial Vital Signs Initial Vital Signs: Vital Signs Temperature 97.2 F L 05/26/21 11:56 Pulse Rate 68 05/26/21 11:56 Respiratory Rate 18 05/26/21 11:56 Blood Pressure 108/67 05/26/21 11:56 Pulse Oximetry 99 05/26/21 11:56 Const General: cooperative, healthy appearing and comfortable Nutritional Appearance: average body habitus and well nourished Orientation: Orientation [facility] Head: normal to inspection, normocephalic and atraumatic Ears: hearing grossly normal bilaterally and TM's normal bilaterally Nose: external nose normal, nares normal and nasal mucous membranes and turbinates normal Face and sinus: normal facial exam, sinuses nontender and face symmetric Mouth: oral mucosae normal, lip normal and tongue normal Teeth and gingiva: dentition normal Eyes General: appearance normal, both eyes and all related structures Visual Montgomery: normal visual montgomery by confrontation Alignment and Position: alignment normal and position normal Periorbital: periorbital findings normal Eyelids: eyelids normal Pupils: PERRL EOM: EOM intact bilaterally Neck Neck: normal visual inspection and full ROM Chest Chest: normal inspection of the chest Resp Effort & Inspection: normal respiratory effort and able to speak in complete sentences Auscultation: clear to auscultation bilaterally Cardio Palpation: normal PMI Rate: regular rate Rhythm: regular rhythm Heart Sounds: S1 normal and S2 normal Pulses: brachial pulses present and radial pulses present GI Inspection: normal to inspection Palpation: soft Neuro General: patient alert, patient awake and patient oriented x3 Cranial Nerves: CN's II-XI intact bilaterally Cognition: normal cognition Speech: speech normal Gait: normal gait Motor: muscle tone normal throughout Coordination: [id number] test normal Course <Live Fong PA-C - Last Filed: 05/26/21 13:34> Orders Ordered: ED Orders 05/26/21 11:55 COVID19 -Nasal swab/Pre-Proc Stat 05/26/21 12:01 EKG-12 Lead Stat 05/26/21 12:04 Complete Blood Count AUTO DIFF Stat Comprehensive Metabolic Panel Stat Lipase Stat Magnesium Stat Troponin & CK Cardiac Panel Stat 05/26/21 12:43 Urinalysis and Microscopic Stat Discontinued Medications Sodium Chloride (Normal Saline 0.9%) 1,000 mls @ 1,000 mls/hr IV BOLUS ONE Stop: 05/26/21 13:00 Last Infusion: 05/26/21 13:44 Dose: 0 mls/hr Documented by: Admin: 05/26/21 12:31 Dose: 1,000 mls/hr Documented by: KIMBERLY Vital Signs Vital signs: Vital Signs - 8 hr 05/26/21 11:56 05/26/21 12:07 05/26/21 12:15 Temperature 97.2 F L Pulse Rate 68 80 74 Pulse Rate [Orthostatic Lying] Pulse Rate [Orthostatic Sitting] Pulse Rate [Orthostatic Standing] Respiratory Rate 18 22 23 Blood Pressure 108/67 103/67 96/56 L Blood Pressure [Orthostatic Lying] Blood Pressure [Orthostatic Sitting] Blood Pressure [Orthostatic Standing] Pulse Oximetry 99 100 100 05/26/21 12:40 05/26/21 12:41 05/26/21 12:45 Temperature Pulse Rate 76 73 Pulse Rate [Orthostatic Lying] Pulse Rate [Orthostatic Sitting] Pulse Rate [Orthostatic Standing] Respiratory Rate 31 H 41 H Blood Pressure 93/63 95/62 Blood Pressure [Orthostatic Lying] Blood Pressure [Orthostatic Sitting] Blood Pressure [Orthostatic Standing] Pulse Oximetry 100 100 100 05/26/21 13:00 05/26/21 13:15 05/26/21 13:30 Temperature Pulse Rate 80 91 H 81 Pulse Rate [Orthostatic Lying] Pulse Rate [Orthostatic Sitting] Pulse Rate [Orthostatic Standing] Respiratory Rate 22 20 19 Blood Pressure 103/63 96/56 L 97/53 L Blood Pressure [Orthostatic Lying] Blood Pressure [Orthostatic Sitting] Blood Pressure [Orthostatic Standing] Pulse Oximetry 100 100 100 05/26/21 13:45 05/26/21 13:46 05/26/21 13:56 Temperature Pulse Rate 72 80 Pulse Rate [Orthostatic Lying] 104 H Pulse Rate [Orthostatic Sitting] 81 Pulse Rate [Orthostatic Standing] 107 H Respiratory Rate 18 21 Blood Pressure 87/50 L 86/49 L Blood Pressure [Orthostatic Lying] 88/50 L Blood Pressure [Orthostatic Sitting] 92/54 L Blood Pressure [Orthostatic Standing] 88/53 L Pulse Oximetry 100 100 MDM - Syncope <Live Fong PA-C - Last Filed: 05/26/21 13:34> Differential Diagnosis Differential diagnosis: Likely syncope due to orthostatic hypotension and other Lab Data Result diagrams: 05/26/21 12:04 05/26/21 12:04 Labs: Lab Results 05/26/21 05/26/21 05/26/21 Range/Units 11:55 12:04 12:04 WBC 4.8 (4.5-11.0) X10^3/uL RBC 3.20 L (4.0-5.2) X10^6/uL Hgb 9.3 L (12.0-16.0) g/dL Hct 27.8 L (36-46) % MCV 87.0 (80-100) fL MCH 28.9 (26-34) PG MCHC 33.3 (30-36) % RDW 13.6 (11.6-14.8) % Plt Count 161 (150-400) X10^3/uL Neut % (Auto) 60.3 (50-75) % Lymph % (Auto) 24.3 L (25-40) % [place] % (Auto) 14.5 H (3-14) % Eos % (Auto) 0.4 L (2-4) % Baso % (Auto) 0.5 (0-2) % Neut # (Auto) 2900 (3934-7864) /uL Lymph # (Auto) 1200 (9962-9438) /uL [place] # (Auto) 700 (0-900) /uL Eos # (Auto) 0 (0-450) /uL Baso # (Auto) 0 (0-100) /uL Sodium 135 L (137-145) mmol/L Potassium 3.4 (3.4-5.1) mmol/L Chloride 107 (98-107) mmol/L Carbon Dioxide 25 (22-32) mmol/L BUN 5 L (7-17) mg/dL Creatinine 0.49 L (0.52-1.04) mg/dL Estimated GFR > 60.0 (>60) mL/min BUN/Creatinine Ratio 10.2 (6-22) Glucose 92 (70-100) mg/dL Calcium 8.4 (8.4-10.2) mg/dL Magnesium 1.9 (1.6-2.3) mg/dL Total Bilirubin 0.1 L (0.2-1.3) mg/dL AST 26 (14-36) IU/L ALT 12 (<35) IU/L Alkaline Phosphatase 88 (38-126) U/L Total Creatine Kinase 52 (30-135) U/L CK-MB (CK-2) TNP CK-MB (CK-2) Rel Index TNP Troponin I < 0.012 (0.01-0.034) ng/mL Total Protein 5.9 L (6.3-8.2) g/dL Albumin 3.1 L (3.5-5.0) g/dL Globulin 2.8 (1.7-4.1) g/dL Albumin/Globulin Ratio 1.1 (1.0-2.8) Lipase 92 (23-300) U/L Urine Color Urine Appearance Urine pH (4.5-8.0) Ur Specific [place] (1.000-1.035) Urine Protein (Negative) Urine Glucose (UA) (Negative) g/dL Urine Ketones (NEGATIVE) Urine Occult Blood (Negative) Urine Nitrate (Negative) Urine Bilirubin (NEGATIVE) Urine Urobilinogen (0.2) E.U./dL Ur Leukocyte Esterase (NEGATIVE) Urine RBC (0-5/HPF) Urine WBC (0-5/HPF) Ur Squamous Epith Cells (0-5/HPF) Urine Bacteria (None) Ur Culture Indicated? SARS-CoV-2 (PCR) Positive H (Negative) 05/26/21 Range/Units 12:43 WBC (4.5-11.0) X10^3/uL RBC (4.0-5.2) X10^6/uL Hgb (12.0-16.0) g/dL Hct (36-46) % MCV (80-100) fL MCH (26-34) PG MCHC (30-36) % RDW (11.6-14.8) % Plt Count (150-400) X10^3/uL Neut % (Auto) (50-75) % Lymph % (Auto) (25-40) % [place] % (Auto) (3-14) % Eos % (Auto) (2-4) % Baso % (Auto) (0-2) % Neut # (Auto) (1202-5063) /uL Lymph # (Auto) (6374-0109) /uL [place] # (Auto) (0-900) /uL Eos # (Auto) (0-450) /uL Baso # (Auto) (0-100) /uL Sodium (137-145) mmol/L Potassium (3.4-5.1) mmol/L Chloride (98-107) mmol/L Carbon Dioxide (22-32) mmol/L BUN (7-17) mg/dL Creatinine (0.52-1.04) mg/dL Estimated GFR (>60) mL/min BUN/Creatinine Ratio (6-22) Glucose (70-100) mg/dL Calcium (8.4-10.2) mg/dL Magnesium (1.6-2.3) mg/dL Total Bilirubin (0.2-1.3) mg/dL AST (14-36) IU/L ALT (<35) IU/L Alkaline Phosphatase (38-126) U/L Total Creatine Kinase (30-135) U/L CK-MB (CK-2) CK-MB (CK-2) Rel Index Troponin I (0.01-0.034) ng/mL Total Protein (6.3-8.2) g/dL Albumin (3.5-5.0) g/dL Globulin (1.7-4.1) g/dL Albumin/Globulin Ratio (1.0-2.8) Lipase (23-300) U/L Urine Color Yellow Urine Appearance Sl cloudy Urine pH 8.5 H (4.5-8.0) Ur Specific [place] 1.015 (1.000-1.035) Urine Protein Trace H (Negative) Urine Glucose (UA) Negative (Negative) g/dL Urine Ketones Negative (NEGATIVE) Urine Occult Blood Negative (Negative) Urine Nitrate Negative (Negative) Urine Bilirubin Negative (NEGATIVE) Urine Urobilinogen 0.2 (0.2) E.U./dL Ur Leukocyte Esterase 1+ H (NEGATIVE) Urine RBC None seen (0-5/HPF) Urine WBC 5-10/hpf H (0-5/HPF) Ur Squamous Epith Cells >30 /hpf H (0-5/HPF) Urine Bacteria Many (>30) H (None) Ur Culture Indicated? Cult not indicated SARS-CoV-2 (PCR) (Negative) Point of Care Testing Glucose POC 111 MDM Narrative Medical decision making narrative: Patient was evaluated in the emergency room for syncopal episode that happened in the ultrasound department today. Patient reports to be on IV in diet and has been for many years. Patient was found to be COVID positive and his work currently 28 weeks . She remained awake alert and oriented the entire time in the emergency room and vital signs remained stable. Patient received IV fluids and responded well to treatment patient was found to have low hemoglobin hematocrit and is being treated for macrocytic anemia. I spoke with patient about increasing protein in her diet and answer questions regarding her condition and treatment options moving forward. Her COVID positive requires her to isolate therefore she will have to contact her OB for a tele med visit today. Patient will be discharged home and will follow-up with her Ob. Discharge Plan Departure Patient Disposition: Home Clinical Impression: Dehydration, Hypoproteinemia, COVID Qualifiers: Weeks of gestation: 28 weeks Qualified Code(s): Z3A.28 - 28 weeks gestation of Anemia Qualifiers: Anemia type: unspecified type Qualified Code(s): D64.9 - Anemia, unspecified Instructions: DI for Syncope in Adults (Fainting) Activity Restrictions/Additional Instructions: You need to isolate at home because appear positive COVID test today. You need to increase your protein supplement with your meals and contact her OB for follow-up Prescriptions: No Action ondansetron 4 mg tablet,disintegrating 4 mg PO Q8H PRN (Reason: nausea and vomiting) Qty: 10 0RF prenat.vits,krzysztof,[id number] Tablet 1 tab PO DAILY 0RF albuterol sulfate 90 mcg/actuation HFA aerosol inhaler 2 puff inhalation Q6H PRN0RF Referrals: Caitie Stanford PA-C [Primary Care Provider] -
--- NOTE | 2021-05-26 12:16 | PC.NURSE ---
heart tones 145 by ultrasound.
[2021-05-26 12:31] LABS: Alanine Aminotransferase 12 IU/L (<35); Albumin 3.1 g/dL (3.5-5.0); Albumin Globulin Ratio 1.1 (1.0-2.8); Alkaline Phosphatase 88 U/L (38-126); Aspartate Aminotransferase 26 IU/L (14-36); BUN Creatinine Ratio 10.2 (6-22); Bilirubin Total 0.1 mg/dL (0.2-1.3); Blood Urea Nitrogen 5 mg/dL (7-17); Calcium 8.4 mg/dL (8.4-10.2); Carbon Dioxide 25 mmol/L (22-32); Chloride 107 mmol/L (98-107); Creatine Kinase 52 U/L (30-135); Estimated Glomerular Filt Rate > 60.0 mL/min (>60); Globulin 2.8 g/dL (1.7-4.1); Glucose 92 mg/dL (70-100); HEMOLYSIS < 15 (0-50); Lipase 92 U/L (23-300); Magnesium 1.9 mg/dL (1.6-2.3); Potassium 3.4 mmol/L (3.4-5.1); Sodium 135 mmol/L (137-145); Total Protein 5.9 g/dL (6.3-8.2)
[2021-05-26] MEDS: SODIUM CHLORIDE 0.9% 1,000 ML 1000 ML IV (12:31)
[2021-05-26 12:33] LABS: COVID19 -Nasal RAPID POSITIVE (Negative)
[2021-05-26 12:43] LABS: Troponin I < 0.012 ng/mL (0.01-0.034)
[2021-05-26 12:48] LABS: Appearance Urine UA SL CLOUDY; Bilirubin Urine UA NEGATIVE (NEGATIVE); Color Urine UA YELLOW; Glucose Urine UA NEGATIVE (Negative); Ketones Urine UA NEGATIVE (NEGATIVE); Leukocyte Esterase Urine UA 1+ (NEGATIVE); Nitrite Urine UA NEGATIVE (Negative); Occult Blood Urine UA NEGATIVE (Negative); Protein Urine UA TRACE (Negative); Specific Gravity Urine UA 1.015 (1.000-1.035); Urobilinogen Urine UA 0.2 E.U./dL (0.2); pH Urine UA 8.5 (4.5-8.0)
[2021-05-26 12:56] LABS: RBC Urine None Seen (0-5/HPF); Squamous Epithelial Cell Urine >30 /HPF (0-5/HPF); WBC Urine 5-10/HPF (0-5/HPF)
[2021-05-26 12:57] LABS: Bacteria Urine Many (>30); Culture Indicated Urine Cult Not Indicated
== END 2021-05-26 14:02 | disposition home or self-care (01) ==
PROVIDERS: Emergency Medicine; Emergency Provider Physician Assistant; PCP Physician Assistant Medical
DX: O98.513 Other viral diseases complicating pregnancy, third trimester (principal); U07.1 COVID-19; O26.892 Other specified pregnancy related conditions, second trimester; E86.0 Dehydration; E77.8 Other disorders of glycoprotein metabolism; O99.013 Anemia complicating pregnancy, third trimester; Z36.2 Encounter for other antenatal screening follow-up; Z3A.28 28 weeks gestation of pregnancy
CPT/HCPCS: 36415; 76816; 80053; 81001; 82550; 82962; 83690; 83735; 84484; 85025; 87635; 93005; 96360; 99284; C9803

== ENCOUNTER → 2021-06-09 16:50 | Outpatient (CLI) | payer OTHER, MEDICAID, SELFPAY ==
[2021-06-09 18:17] LABS: Add Manual Diff / Slide Review NO; Basophils Absolute Auto 0 /uL (0-100); Basophils Percent Auto 0.2 % (0-2); Eosinophils Absolute Auto 0 /uL (0-450); Eosinophils Percent Auto 0.2 % (2-4); Hematocrit 31.9 % (36-46); Hemoglobin 10.5 g/dL (12.0-16.0); Lymphocytes Absolute Auto 1300 /uL (1100-4500); Lymphocytes Percent Auto 20.4 % (25-40); Mean Corpuscular HGB Conc 32.9 % (30-36); Mean Corpuscular Hemoglobin 27.7 PG (26-34); Mean Corpuscular Volume 84.3 fL (80-100); Monocytes Absolute Auto 600 /uL (0-900); Monocytes Percent Auto 9.3 % (3-14); Neutrophils Absolute Auto 4600 /uL (1500-7000); Neutrophils Percent Auto 69.9 % (50-75); Platelet Count 245 X10^3/uL (150-400); Red Blood Cell Count 3.79 X10^6/uL (4.0-5.2); Red Cell Distribution Width 13.8 % (11.6-14.8); White Blood Cell Count 6.5 X10^3/uL (4.5-11.0)
[2021-06-09 18:32] LABS: GTT (PREG) 1 Hour PP 50gm Dose 129 mg/dL (76-139); HEMOLYSIS < 15 (0-50); Iron 27 ug/dL (37-170)
[2021-06-09 18:43] LABS: Percent Iron Saturation 5 % (15-50); Total Iron Binding Capacity 566 ug/dL (265-497); Transferrin 526 mg/dL (206-381)
== END ==
PROVIDERS: PCP Physician Assistant Medical; Referring Provider Family Medicine; Visit Provider Family Medicine
DX: Z34.90 Encounter for supervision of normal pregnancy, unspecified, unspecified trimester (principal)
CPT/HCPCS: 36415; 82950; 83540; 83550; 85025

== ENCOUNTER → 2021-07-21 15:50 | Outpatient (CLI) | payer OTHER, MEDICAID, SELFPAY ==
[2021-07-22 13:40] LABS: Strep Grp B PCR NEG for Grp B Strep
== END ==
PROVIDERS: PCP Family Medicine; Visit Provider Family Medicine
DX: Z36.85 Encounter for antenatal screening for Streptococcus B (principal); Z3A.36 36 weeks gestation of pregnancy
CPT/HCPCS: 87653

== ENCOUNTER 2021-08-14 07:54 | Inpatient (IN) | payer OTHER, MEDICAID, SELFPAY ==
[2021-08-14 09:56] LABS: Add Manual Diff / Slide Review NO; Basophils Absolute Auto 100 /uL (0-100); Basophils Percent Auto 1.1 % (0-2); Eosinophils Absolute Auto 0 /uL (0-450); Eosinophils Percent Auto 0.5 % (2-4); Hematocrit 37.8 % (36-46); Hemoglobin 12.3 g/dL (12.0-16.0); Lymphocytes Absolute Auto 1800 /uL (1100-4500); Mean Corpuscular HGB Conc 32.6 % (30-36); Mean Corpuscular Hemoglobin 26.1 PG (26-34); Mean Corpuscular Volume 80.1 fL (80-100); Monocytes Absolute Auto 500 /uL (0-900); Monocytes Percent Auto 8.5 % (3-14); Neutrophils Absolute Auto 3600 /uL (1500-7000); Neutrophils Percent Auto 59.9 % (50-75); Platelet Count 149 X10^3/uL (150-400); Red Blood Cell Count 4.71 X10^6/uL (4.0-5.2); Red Cell Distribution Width 17.6 % (11.6-14.8); White Blood Cell Count 6.1 X10^3/uL (4.5-11.0)
[2021-08-14 10:31] LABS: COVID19 -Nasal RAPID Negative (Negative)
[2021-08-14 10:32] VITALS: BP 132/88
[2021-08-14] MEDS: LACTATED RINGERS 1,000 ML 100 ML IV ×2 (10:45→21:33)
[2021-08-14] MEDS: OXYTOCIN PREMIX 30 UNIT/500 ML PLAST..BAG 200 UNIT IV (11:21)
--- NOTE | 2021-08-14 15:46 | PM.OBHP.IH.1 ---
OB HPI Date/Time Date of admission: 08/14/21 Date Patient Seen: 08/14/21 Time Patient Seen: 08:20 History of Present Condition Chief complaint: ROSALINDA Calculator Estimated Delivery Date Method Current WG Current Estimate 08/14/21 Manual 40w 0d Final ROSALINDA - RADHA Other Estimates 08/14/21 LMP (Certain) 40w 0d 08/18/21 Ultrasound #1 39w 3d 08/18/21 Ultrasound #2 39w 3d Estimated Gestational Age (weeks): 40w0d : 3 Para: 0 Narrative: Pt is a 21yo at 40w0d who presented with LOF at home. Pt reports between 12-1am waking with leaking fluid. She has had mild vaginal bleeding since then. She has intermittent contractions as well. She is feeling her baby move regularly. Her has been uncomplicated. care: good care, initiated at week # (9) and pounds weight gain (11) Dating criteria OB: LMP confirmed by 1st trimester US Ultrasounds: normal 1st trimester US and normal mid trimester US Abnormal ultrasound findings: eccentric cord insertion and debris in stomach on initial ultrasound, resolved on repeat Obstetrical complications: none Medical complications OB: none Preadmission Labs Last OB Lab Results: Blood Type O Positive 08/14/21 09:25 08/14/21 Antibody Screen Negative 08/14/21 09:25 08/14/21 Hematocrit 37.8 % (36-46) 08/14/21 09:25 08/14/21 Hemoglobin 12.3 g/dL (12.0-16.0) 08/14/21 09:25 08/14/21 Hepatitis B Surface Antigen Negative s/c (NEGATIVE) 01/09/21 14:33 01/09/21 Hepatitis C Antibody Negative s/c (NEGATIVE) 01/09/21 14:33 01/09/21 Rubella Antibody 4.4 IU/mL (>15) L 01/09/21 14:33 01/09/21 Varicella-Zoster IgG Antibody 298 index (Immune >165) 01/09/21 14:33 01/09/21 Glucose 1 Hour 129 mg/dL (76-139) 06/09/21 17:59 06/09/21 Group B Streptococcus (PCR) Neg for grp b strep 07/21/21 15:50 07/21/21 -: Urine: negative External Labs -: Urine: negative Prior (ies) Past Pregnancies Del. Date GA/Weeks Labor Lgth Wt Sex Route Outcome Anesthesia Place Delv Breastfeed Preg Comp Name 04/04/20 7 spontaneous spontaneous 08/17/20 8.4 spontaneous [place] spontaneous Delivery Date: 04/04/20 Last Updated by: Rosa Maria Rosenberg R.N. *Missed-Ab. Delivery Date: 08/17/20 Last Updated by: Rosa Maria Rosenberg R.N. *Coping OK as a couple. Evaluation Evaluation Baseline heart rate: 135 Variability: Moderate (11-25) monitor accelerations: Present Monitor Decelerations: Absent Contraction Frequency (minutes): 3 Uterine Contraction Intensity: Mild Status: Category l Dilation (cm): 3 Effacement (%): 80 Dilation: 3-4 cm Effacement: >/=80% station: -3 Position of cervix: mid Consistency: soft Pulliam score: 8 PFSH Medical History Cancer (~2013) Exercise-induced asthma (~2019) Germ cell tumor of ovary (~12/2013) Hearing loss (~2013) History of being hospitalized (~2013) History of chemotherapy (~01/2014) SAB (spontaneous ) (~04/04/20) SAB (spontaneous ) (~08/17/20) Tumor (~2013) Surgical History History of laparoscopy (~01/20/14) History of removal of Port-a-Cath (~05/07/14) Status post surgery (~02/11/14) Family History Mother Hyperlipidemia Twin delivered Father No problems noted. Grandmother Liver problem Grandfather Cardiac anomaly Grandmother No problems noted. Grandfather No problems noted. Brother No problems noted. Sister No problems noted. Social History marital status: household members: spouse and other lives independently: Yes caregiver/support person: No pets and animals: No education level: high school occupational status: unemployed current occupational exposures/hazards: No special yelena needs: No Smoking Status: Never smoker second hand exposure: No alcohol intake: never substance use type: does not use Meds Home Medications and Allergies Home Medications Medication Instructions Recorded Confirmed Type albuterol sulfate 90 mcg/actuation 2 puff INHALATION Q6H PRN 08/17/20 08/17/20 History aerosol inhaler prenat.vits,krzysztof,[id number]-[id number] 1 tab PO DAILY 08/17/20 08/17/20 History Allergies Allergy/AdvReac Type Severity Reaction Status Date / Time No Known Drug Allergies Allergy Verified 06/23/21 16:17 OB Exam Narrative Exam Narrative: Gen: NAD, sitting comfortably in bed, appears well CV: RRR, no murmurs Resp: clear to auscultation bilaterally Abd: soft, nontender, gravid Ext: no edema Objective Labs Result Diagrams: 08/14/21 09:25 Labs: Laboratory Results - last 24 hr 08/14/21 08/14/21 08/14/21 09:00 09:25 09:25 WBC 6.1 RBC 4.71 Hgb 12.3 Hct 37.8 MCV 80.1 MCH 26.1 MCHC 32.6 RDW 17.6 H Plt Count 149 L Neut % (Auto) 59.9 Lymph % (Auto) 30.0 [place] % (Auto) 8.5 Eos % (Auto) 0.5 L Baso % (Auto) 1.1 Neut # (Auto) 3600 Lymph # (Auto) 1800 [place] # (Auto) 500 Eos # (Auto) 0 Baso # (Auto) 100 SARS-CoV-2 (PCR) Negative Blood Type O Positive Antibody Screen Negative Assessment and Plan Assessment and Plan Assessment and Plan narrative: 21yo at 40w0d who presented with SROM in early labor. No complications with . GBS negative, Rh positive. - Expectant management, anticipate - FHT reassuring - GBS negative, no prophylaxis indicated - Desires natural methods for pain control - Will monitor for cervical change and regular contractions in the next 1-2 hours, if none will start pitocin
--- NOTE | 2021-08-14 15:57 | PM.OBPNLAB ---
Date/Time Date Patient Seen: 08/14/21 Time Patient Seen: 15:57 Pain Control Pain control: tolerating well Pelvic Exam Dilation (cm): 3.5 Effacement (%): 100 station: -2 Amniotic membrane status: Ruptured Contractions Pitocin rate (mU/min): 7 Contraction frequency (min): 2 Contraction pattern: Irregular Contraction intensity: Moderate Status status: Category l Heart Rate Baseline: 140 Monitor Accelerations: Present Monitor Decelerations: Absent Monitor Variability: Moderate Assessment and Plan Comments: 21yo at 40w0d who presented with SROM in early labor.? No complications with .? GBS negative, Rh positive. Pitocin started due to limited painful contractions. - Expectant management, anticipate - FHT reassuring - GBS negative, no prophylaxis indicated - Desires natural methods for pain control - Continue pitocin, titrate as tolerated
--- NOTE | 2021-08-14 19:32 | PM.OBPRVD ---
Labor & Delivery Delivery date: 08/14/21 Cervical ripening method: none Induction method: none Delivery augmentation: pitocin Delivery monitor: external FHT Route of delivery: Episiotomy description: None L&D Laceration Description: Perineal - 2nd Degree Delivery repair: vicryl Estimated blood loss (mL): 1,450 Anesthesia Type: None Complications: hemorrhage Narrative: PROCEDURE: at 40w0d presented in early labor with SROM and was admitted to Labor and Delivery. The patient progressed through the 1st stage over 9.5 hours. Pain was controlled with natural methods. Pitocin was initiated due to spacing of contractions and limited cervical change. The patient progressed through the 2nd stage over 39 minutes and delivered a viable male infant with APGARs 9/9 at 18:39 via . Compound presentation with hand was noted, and there was a nuchal cord x1 reduced after delivery. The cord was cut and clamped after it stopped pulsating. The perineum and vagina were inspected with 2nd degree laceration with deep left sulcal extension noted to be bleeding heavily. This was repaired with 2-O Vicryl under local anesthesia with lidocaine. The pt was noted to have significant blood loss after the incision was repaired. Fundus was noted to be firm with minimal vaginal bleeding. The pt was later noted to have increased bleeding. She received Methergine and then Transexamic Acid, with good control of her bleeding. The pt felt lightheaded, and IVF bolus was initiated. CBC revealed acute blood loss anemia, but not to transfusion level. The pt felt significantly improved after IVF. PREPROCEDURE DIAGNOSIS: Intrauterine at 40w0d GBS negative RH positive POSTPROCEDURE DIAGNOSIS: Intrauterine at 40w0d, delivered Same as preprocedure hemorrhage Uterine atony [place] Baby 1: Infant gender: Male Presentation: compound (with left arm) Position: Left Occiput Anterior Placenta delivery description: Spontaneous Cord Vessel Description: 3 Vessels and Nuchal Cord (x1) score (1 min): 9 score (5 min): 9 weight: 6 lb 2.414 oz Plan for aftercare: Routine care and Other (monitor bleeding closely)
[2021-08-14] MEDS: miSOPROStoL 200 MCG TABLET 1000 MCG PR (19:57)
[2021-08-14] MEDS: METHYLERGONOVINE 0.2 MG/ML VIAL IM (20:24)
[2021-08-14] MEDS: TRANEXAMIC ACID 1,000 MG in SODIUM CHLORIDE 0.9% 100 ML 200 ML IV (20:50)
[2021-08-14 22:06] LABS: Add Manual Diff / Slide Review NO; Basophils Absolute Auto 100 /uL (0-100); Basophils Percent Auto 0.4 % (0-2); Eosinophils Absolute Auto 0 /uL (0-450); Hematocrit 27.7 % (36-46); Lymphocytes Absolute Auto 1200 /uL (1100-4500); Lymphocytes Percent Auto 7.4 % (25-40); Mean Corpuscular HGB Conc 32.6 % (30-36); Mean Corpuscular Hemoglobin 26.1 PG (26-34); Monocytes Absolute Auto 1100 /uL (0-900); Monocytes Percent Auto 6.5 % (3-14); Neutrophils Absolute Auto 14500 /uL (1500-7000); Neutrophils Percent Auto 85.7 % (50-75); Platelet Count 144 X10^3/uL (150-400); Red Blood Cell Count 3.46 X10^6/uL (4.0-5.2); Red Cell Distribution Width 17.6 % (11.6-14.8); White Blood Cell Count 16.9 X10^3/uL (4.5-11.0)
[2021-08-14] MEDS: IBUPROFEN 600 MG TABLET PO (22:09)
[2021-08-15] MEDS: ACETAMINOPHEN 325 MG TABLET 650 MG PO ×3 (00:04→12:28)
[2021-08-15] MEDS: IBUPROFEN 600 MG TABLET PO ×2 (04:10→22:51)
[2021-08-15 05:49] LABS: Add Manual Diff / Slide Review NO; Basophils Absolute Auto 200 /uL (0-100); Basophils Percent Auto 0.9 % (0-2); Eosinophils Absolute Auto 0 /uL (0-450); Hematocrit 24.7 % (36-46); Hemoglobin 8.1 g/dL (12.0-16.0); Lymphocytes Absolute Auto 2300 /uL (1100-4500); Lymphocytes Percent Auto 13.6 % (25-40); Mean Corpuscular HGB Conc 32.6 % (30-36); Mean Corpuscular Volume 79.7 fL (80-100); Monocytes Absolute Auto 1300 /uL (0-900); Monocytes Percent Auto 7.8 % (3-14); Neutrophils Absolute Auto 13100 /uL (1500-7000); Neutrophils Percent Auto 77.7 % (50-75); Platelet Count 143 X10^3/uL (150-400); Red Cell Distribution Width 17.9 % (11.6-14.8); White Blood Cell Count 16.8 X10^3/uL (4.5-11.0)
[2021-08-15] MEDS: DERMOPLAST SPRAY 20% 60 ML 1 SPRAY TOP (07:20)
[2021-08-15] MEDS: DOCUSATE 100 MG CAPSULE PO (10:33)
[2021-08-15] MEDS: PRENATAL VIT,CALC/IRON/FOLIC 1 TABLET 1 TAB PO (10:34)
[2021-08-15] MEDS: FERROUS SULFATE 325 MG TABLET PO (10:42)
--- NOTE | 2021-08-15 13:24 | PM.OBDS.1 ---
Discharge Providers Provider Date of admission: 08/14/21 07:54 Primary care physician: Tesha Carbajal MD Consults: 08/15/21 19:32 Consult to Industrial Gas Fitter Routine Comment: Discharge provider: Tesha Carbajal MD Summary Time Spent with Patient Time attestation: Total time spent providing and/or coordinating discharge services: Objective Labs Result Diagrams: 08/15/21 05:35 Labs: Laboratory Results - last 24 hr 08/14/21 08/14/21 08/15/21 09:25 22:00 05:35 WBC 16.9 H D 16.8 H RBC 3.46 L 3.10 L Hgb 9.0 L 8.1 L Hct 27.7 L 24.7 L MCV 80.0 79.7 L MCH 26.1 26.0 MCHC 32.6 32.6 RDW 17.6 H 17.9 H Plt Count 144 L 143 L Neut % (Auto) 85.7 H D 77.7 H Lymph % (Auto) 7.4 L D 13.6 L [place] % (Auto) 6.5 7.8 Eos % (Auto) 0.0 L 0.0 L Baso % (Auto) 0.4 0.9 Neut # (Auto) 21521 H 64208 H Lymph # (Auto) 1200 2300 [place] # (Auto) 1100 H 1300 H Eos # (Auto) 0 0 Baso # (Auto) 100 200 H Blood Type O Positive Antibody Screen Negative Crossmatch See Detail Discharge Plan Discharge orders & Medications Prescriptions: No Action prenat.vits,krzysztof,gme-totq-tdckc Tablet 1 tab PO DAILY 0RF albuterol sulfate 90 mcg/actuation HFA aerosol inhaler 2 puff inhalation Q6H MDD 1 PRN (Reason: Bronchodilation) 0RF Follow up/Referrals: Tesha Carbajal MD [Primary Care Provider] - Discharge Data Primary Care Provider: Tesha Carbajal
--- NOTE | 2021-08-15 17:16 | PM.OBPN.1 ---
Subjective - OB Subjective Patient comments: no complaints and pain well controlled Martell baby status: doing well and nursing well feeding status: exclusively breast feeding Narrative: Patient reports that she is doing well. Her lochia is decreasing appropriately. She has voided successfully. She feels slightly lightheaded when rising quickly, and generally feels fatigued. Exam Resp Auscultation: clear to auscultation bilaterally Cardio Rate: regular rate Rhythm: regular rhythm Heart Sounds: S1 normal, S2 normal and no murmurs GI Inspection: non-distended Palpation: soft, No guarding and tender (appropriately tender) Auscultation: normal bowel sounds Other: fundus firm and below the umbilicus Extrem Right upper extremity: No no edema Objective Labs Result Diagrams: 08/15/21 05:35 Labs: Laboratory Results - last 24 hr 08/14/21 08/14/21 08/15/21 09:25 22:00 05:35 WBC 16.9 H D 16.8 H RBC 3.46 L 3.10 L Hgb 9.0 L 8.1 L Hct 27.7 L 24.7 L MCV 80.0 79.7 L MCH 26.1 26.0 MCHC 32.6 32.6 RDW 17.6 H 17.9 H Plt Count 144 L 143 L Neut % (Auto) 85.7 H D 77.7 H Lymph % (Auto) 7.4 L D 13.6 L [place] % (Auto) 6.5 7.8 Eos % (Auto) 0.0 L 0.0 L Baso % (Auto) 0.4 0.9 Neut # (Auto) 03184 H 13010 H Lymph # (Auto) 1200 2300 [place] # (Auto) 1100 H 1300 H Eos # (Auto) 0 0 Baso # (Auto) 100 200 H Blood Type O Positive Antibody Screen Negative Crossmatch See Detail Assessment & Plan Plan Comments: Pt is a 21yo PPD#1 s/p complicated by hemorrhage. Pt with acute blood loss anemia, however not to transfusion level. Mild symptoms. Otherwise doing well. - Normal care - support - Iron supplement daily Time Spent With Patient Time: Total time spent is greater than 50% in coordination of care (as documented) at patient's floor/unit and/or counseling patient: Time with patient: 15-24 minutes
[2021-08-15 22:51] VITALS: TEMP 36.9
--- NOTE | 2021-08-16 08:08 | P.DS_ITS ---
Discharge Providers Provider Date of admission: 08/14/21 07:54 Discharge Date: 08/16/21 Primary care physician: Tesha Carbajal MD Consults: 08/15/21 19:32 Consult to Joint Terminal Attack Controller Routine Comment: Discharge provider: Tesha Carbajal MD Summary Hospital Course Date Patient Seen: 08/16/21 Time Patient Seen: 07:45 Diagnoses: 40w0d gestation GBS negative Rh positive hemorrhage Acute blood loss anemia Hospital Course: The pt presented in early labor with SROM. She used natural methods for pain control. Pitocin was initiated due to limited cervical change and spacing of contractions. She progressed to complete, and had an of a viable baby boy on 08/14/21. She had a 2nd degree perineal laceration with deep left sulcal extension that was bleeding heavily and appropriately repaired. The pt then had uterine atony, controlled with pitocin, cytotec, methergine, and TXA. The pt had lightheadedness due to blood loss, controlled with IVF, but never required blood transfusion. There were no other complications. At the time of discharge she was voiding, ambulating, and passing flatus without difficulty. Her lochia was decreasing appropriately. She was with good latch. Her pain was well controlled. She will f/u in clinic in 6 weeks for check. They will likely use condoms for contraception. She will continue an iron supplement. Peripartum Data Infant Delivery Method: Natural Vaginal Laceration Description: Perineal - 2nd Degree Episiotomy description: None Procedures: Spontaneous vaginal delivery complications: uterine atony Discharge Diagnosis (1) Spontaneous vaginal delivery: Status: Acute (2) hemorrhage: Status: Acute (3) Acute blood loss anemia: Status: Acute Status at Discharge Cognitive/behavioral status at discharge: oriented Functional status at discharge: independent ambulation Overall status at discharge: patient is progressing back to baseline Time Spent with Patient Time attestation: Total time spent providing and/or coordinating discharge services: Objective Labs Result Diagrams: 08/15/21 05:35 Exam Narrative Exam Narrative: Gen: NAD, sitting comfortably in bed, appears well CV: RRR, no murmurs Resp: clear to auscultation bilaterally Abd: soft, appropriately tender, fundus firm and below the umbilicus, nondistended Ext: no edema Discharge Plan Discharge Plan Patient Disposition: Home Discharge orders & Medications Prescriptions: New acetaminophen 325 mg Tablet 650 mg PO Q6HR PRN (Reason: Pain, Mild (1-3)) Qty: 30 0RF ferrous sulfate 325 mg (65 mg iron) Tablet 325 mg PO DAILY Qty: 30 0RF docusate sodium 100 mg Capsule 100 mg PO DAILY Qty: 30 0RF ibuprofen 600 mg Tablet 600 mg PO Q6HR PRN (Reason: Pain, Mild (1-3)) Qty: 30 0RF Continued prenat.vits,krzysztof,vow-wjqd-dtmap Tablet 1 tab PO DAILY 0RF albuterol sulfate 90 mcg/actuation HFA aerosol inhaler 2 puff inhalation Q6H MDD 1 PRN (Reason: Bronchodilation) 0RF Follow up/Referrals: Tesha Carbajal MD [Primary Care Provider] - 6 Weeks Diet/Activity/Treatments Diet: Diet as Tolerated and Regular Skin/Wound/Dressing Care Report to your healthcare provider any signs of infection, such as:: chills, fever, increased pain and unusual drainage Visit Report/Discharge Packet Instructions: DI for Labor and Delivery, Vaginal Visit Report Forms: Patient Portal/API, Stroke Signs & Symptoms Discharge Data Primary Care Provider: Tesha Carbajal
[2021-08-16] MEDS: ACETAMINOPHEN 325 MG TABLET 650 MG PO (09:00)
[2021-08-16] MEDS: IBUPROFEN 600 MG TABLET PO (09:00)
[2021-08-16] MEDS: FERROUS SULFATE 325 MG TABLET PO (09:01)
[2021-08-16] MEDS: DOCUSATE 100 MG CAPSULE PO (09:01)
[2021-08-16] MEDS: PRENATAL VIT,CALC/IRON/FOLIC 1 TABLET 1 TAB PO (09:01)
== END 2021-08-16 12:50 | disposition home or self-care (01) | DRG 560 ==
PROVIDERS: Family Medicine; Admitting Provider Family Medicine; PCP Family Medicine; Referring Provider Family Medicine; Visit Provider Family Medicine
DX: O42.02 Full-term premature rupture of membranes, onset of labor within 24 hours of rupture (principal); Z3A.40 40 weeks gestation of pregnancy; Z37.0 Single live birth; O70.1 Second degree perineal laceration during delivery; O69.81X0 Labor and delivery complicated by cord around neck, without compression, not applicable or unspecified; D62 Acute posthemorrhagic anemia; O90.81 Anemia of the puerperium; O48.0 Post-term pregnancy; Z20.822 Contact with and (suspected) exposure to COVID-19
CPT/HCPCS: 36415; 59050; 59409; 85025; 86850; 86900; 86901; 87635; C9803; G0379; J2210; J2590; S0191

== ENCOUNTER → 2022-07-30 08:44 | Outpatient (CLI) | payer OTHER, MEDICAID, SELFPAY ==
--- NOTE | 2022-07-30 08:46 | DI.US.S_ITS ---
PROCEDURE: US ABDOMEN COMPLETE INDICATIONS: LOWER ABDOMINAL PAIN TECHNIQUE: Real-time scanning was performed of the abdominal and retroperitoneal organs, with image documentation. COMPARISON: None. FINDINGS: Liver: Liver is normal in size and homogeneous in echotexture. Gallbladder: No stones, wall thickening, or sonographic Higginbotham sign. Biliary ducts: Intrahepatic bile ducts are non-dilated. Extrahepatic bile duct caliber measures 5 mm. Normal is 6-7 mm or less in diameter, or 10 mm or less post-cholecystectomy. Pancreas: Visualized portions of the pancreas are sonographically normal. Spleen: Spleen is normal in size and homogeneous in echotexture. Kidneys: Kidneys are normal in size and echotexture. Right kidney measures 9.7 cm long; left kidney measures 9.1 cm long. No hydronephrosis or nephrolithiasis. No solid masses. Aorta: Visualized aorta is normal in caliber at less than 3 cm. Iliacs: Proximal common iliac arteries are normal in caliber at less than 2.5 cm. IVC: Intrahepatic inferior vena cava is patent. Miscellaneous: No free abdominal fluid. IMPRESSION: Unremarkable abdominal ultrasound. Dictated by: Brian Ding M.D. on 07/30/2022 at 10:23 Approved by: Brian Ding M.D. on 07/30/2022 at 10:27
== END ==
PROVIDERS: PCP Family Medicine; Referring Provider Urology; Visit Provider Urology
DX: R10.30 Lower abdominal pain, unspecified
CPT/HCPCS: 76700

== ENCOUNTER → 2022-08-21 16:05 | Outpatient (CLI) | payer OTHER, MEDICAID, SELFPAY ==
--- NOTE | 2022-08-21 16:05 | DI.US.S_ITS ---
PROCEDURE: US PELVIC COMPLETE INDICATIONS: PAIN; HISTORY GERM-CELL TUMOR TECHNIQUE: Real-time scanning was performed of the pelvic organs, with image documentation. Additional endovaginal scanning was necessary due to incomplete visualization of the adnexal and endometrial structures by transabdominal scanning. COMPARISON: Located Within [facility], US, US PELVIC COMPLETE, 09/14/2020, 10:12. FINDINGS: Uterus: Uterus is retroverted and normal in size at 6.7 x 3.8 x 5.0 cm. The myometrium is homogeneous. The endometrium measures 17 mm combined thickness. No internal vascularity within the endometrium. Please Ovaries: The right ovary is surgically absent The left ovary measures 3.8 x 2.7 x 3.3 cm, with a calculated ovarian volume of 17.8 cc. The ovaries have a normal sonographic appearance. There is a simple left ovarian cyst which measures 2.1 x 2.5 x 2.1 cm. No adnexal masses are seen. Other: No pathologic free abdominal or pelvic fluid. IMPRESSION: 1. Endometrium is the upper limits of normal for thickness in a premenopausal patient. No internal vascularity. If further characterization is warranted, repeat study during the proliferative phase could be used. 2. Simple left ovarian cyst which is within physiologic limits for size in a premenopausal female. We strive to produce accurate, complete, and clear reports of imaging services. To assist us in improving patient care, this report was composed using standard report templates and voice recognition software. Therefore, it may contain abnormal punctuation, insertions and/or omissions. Occasional wrong-word or sound-alike substitutions may occur. Though we review the report and make efforts to correct it, we do recommend that the report be read carefully in proper context to recognize any text inaccuracies. Dictated by: Lolita White M.D. on 08/23/2022 at 15:49 Approved by: Lolita White M.D. on 08/23/2022 at 15:51
== END ==
PROVIDERS: PCP Family Medicine; Referring Provider Family Medicine; Visit Provider Family Medicine
DX: C80.1 Malignant (primary) neoplasm, unspecified (principal); K66.0 Peritoneal adhesions (postprocedural) (postinfection); N83.292 Other ovarian cyst, left side; Z90.721 Acquired absence of ovaries, unilateral
CPT/HCPCS: 76830; 76856; 93976

== ENCOUNTER 2023-01-22 17:26 | Emergency (ER) | payer OTHER, MEDICAID, SELFPAY ==
[2023-01-22 17:30] VITALS: BP 136/72; PULSE 70; RESP 16; TEMP 36.6; O2SAT 100; BMI 21.9
--- NOTE | 2023-01-22 17:36 | DI.US.S_ITS ---
PROCEDURE: US PELVIC COMPLETE INDICATIONS: VAGINAL BLEEDING TECHNIQUE: Real-time scanning was performed of the pelvic organs, with image documentation. Additional endovaginal scanning was necessary due to incomplete visualization of the adnexal and endometrial structures by transabdominal scanning. COMPARISON: None. FINDINGS: Uterus: Uterus is retroverted and normal in size at 7.0 x 3.8 x 4.8 cm. The myometrium is homogeneous. The endometrium measures 7 mm combined thickness. No focal uterine mass. No evidence of intrauterine gestation. Ovaries: Right ovary is surgically absent. Left ovary is within normal limits measuring 28 mm. 19 mm hemorrhagic cyst within the left ovary. Other: Complex fluid is seen superior to the uterus and in the left adnexal region. IMPRESSION: 1. No evidence of intrauterine gestation. Ectopic cannot be excluded. 2. Hemorrhagic left ovarian cyst. 3. Complex fluid superior to the uterus and within the left adnexal region. We strive to produce accurate, complete, and clear reports of imaging services. To assist us in improving patient care, this report was composed using standard report templates and voice recognition software. Therefore, it may contain abnormal punctuation, insertions and/or omissions. Occasional wrong-word or sound-alike substitutions may occur. Though we review the report and make efforts to correct it, we do recommend that the report be read carefully in proper context to recognize any text inaccuracies. Dictated by: Doris Mckeon M.D. on 01/22/2023 at 18:41 Approved by: Doris Mckeon M.D. on 01/22/2023 at 18:42
--- NOTE | 2023-01-22 17:52 | PC.NURSE ---
Patient complained of increase in bleeding, in bathroom changing underwear and pad.
[2023-01-22 18:00] VITALS: BP 122/76; PULSE 84; RESP 14
--- NOTE | 2023-01-22 18:00 | PC.NURSE ---
Pt c/o vaginal bleeding that started with light spotting on and has gradually progressed to heavier bleeding. Pt has been using light liners only until coming to the ER, at which point she noted a large amount of monica red blood with clots in the toilet. Denies any pain or other symptoms. Reports she is currently 8 weeks with hx of two prior spontaneous abortions.
[2023-01-22 18:01] LABS: Appearance Urine UA SL CLOUDY; Bilirubin Urine UA NEGATIVE (NEGATIVE); Color Urine UA YELLOW; Glucose Urine UA NEGATIVE (Negative); Ketones Urine UA NEGATIVE (NEGATIVE); Leukocyte Esterase Urine UA NEGATIVE (NEGATIVE); Nitrite Urine UA NEGATIVE (Negative); Occult Blood Urine UA 3+ (Negative); Protein Urine UA NEGATIVE (Negative); Urobilinogen Urine UA 0.2 E.U./dL (0.2)
--- NOTE | 2023-01-22 18:03 | ED_ITS ---
HPI - Female Genitourinary General Chief complaint: Vaginal Bleeding Stated complaint: sent by rn for US Time Seen by Provider: 01/22/23 18:02 History of Present Illness HPI Narrative: 22-year-old female nonsmoker reports at about 8 weeks and reports some spotting since . No cramping, little more bleeding and has transition from brown to reddish over the day. She states it was bleeding a bit heavier just on her arrival but has since slowed. She denies the passage of any tissue. She is not dizzy nor weak or lightheaded. She denies any chest pain or shortness of breath. She has no fever or chills. She denies urinary complaints or changes in her bowels Related Data Home Medications Medication Instructions Recorded Confirmed prenat.vits,krzysztof,grg-hurt-lvirq 1 tab PO DAILY 08/17/20 01/22/23 Allergies Allergy/AdvReac Type Severity Reaction Status Date / Time No Known Drug Allergies Allergy Verified 07/24/22 08:38 Review of Systems Review of Systems Narrative: GENERAL: Denies chills, fatigue, malaise, fever, sweats. HEENT: Denies sinus pain, ear pain, sore throat, difficulty swallowing, dizziness. RESPIRATORY: Denies dyspnea, cough, wheezing, hemoptysis, sputum. CARDIOVASCULAR: Denies chest pain, palpitations, orthopnea, edema, GASTROINTESTINAL: Denies nausea, vomiting, abdominal pain, diarrhea, constipation, melena. : See HPI MUSCULOSKELETAL: denies weakness, joint pain, or bony pain SKIN: Denies rash, skin lesions, or other NEUROLOGIC: Denies weakness, headache, numbness, change in speech, confusion, seizures, incoordination. PSYCHIATRIC: No concerning psychosocial issues. 12 point review of systems is negative except for those stated above Patient History Medical History Cancer (~2013) Exercise-induced asthma (~2019) Germ cell tumor of ovary (~12/2013) Hearing loss (~2013) History of being hospitalized (~2013) History of chemotherapy (~01/2014) SAB (spontaneous ) (~04/04/20) SAB (spontaneous ) (~08/17/20) Tumor (~2013) Surgical History History of laparoscopy (~01/20/14) History of removal of Port-a-Cath (~05/07/14) Status post surgery (~02/11/14) Family History Mother Hyperlipidemia Twin delivered Father No problems noted. Grandmother Liver problem Grandfather Cardiac anomaly Grandmother No problems noted. Grandfather No problems noted. Brother No problems noted. Sister No problems noted. alcohol intake frequency: other Substance Use Type: does not use Exam Narrative Exam Narrative: GENERAL: [22] year old patient appears stated age. Well-developed patient, in mild distress. HEAD: Atraumatic. Normocephalic. EYES: Pupils equal round and reactive. Extraocular motions intact. No scleral icterus. No injection or drainage. ENT: Nose without bleeding, purulent drainage. Throat without erythema, tonsillar hypertrophy or exudate. Airway patent. NECK: Trachea midline. Non tender CARDIOVASCULAR: Regular rate and rhythm without murmurs, gallops, or rubs. RESPIRATORY: Clear to auscultation. Breath sounds equal bilaterally. No wheezes, rales, or rhonchi. GASTROINTESTINAL: Abdomen soft, non-tender, nondistended. EXTREMITIES: No edema or joint tenderness. BACK: Nontender without deformity or crepitance. No flank tenderness. NEURO: AOx3. SKIN: No rash or erythema of visible areas Initial Vital Signs Initial Vital Signs: Vital Signs Temperature 98 F 01/22/23 17:30 Pulse Rate 70 01/22/23 17:30 Respiratory Rate 16 01/22/23 17:30 Blood Pressure 136/72 01/22/23 17:30 Pulse Oximetry 100 01/22/23 17:30 Oxygen Delivery Method Room Air 01/22/23 17:30 Course Orders Ordered: ED Orders 01/22/23 17:36 US pelvic complete Stat 01/22/23 17:49 Urinalysis and Microscopic Stat 01/22/23 18:00 ABO RH Type Stat Complete Blood Count AUTO DIFF Stat Comprehensive Metabolic Panel Stat HCG Quantitative /Beta subunit Stat Consultations Consultation #1: discussed with marketing and communications officer window trimmer (Solomon - her provider). We discussed history and physical exam, labs and imaging. We sure the opinion that patient likely has u nfortunately gone through a miscarriage. Given her minimal bleeding and lack of symptoms she is appropriate for discharge and they will reach out to her tomorrow ensure close follow-up and trending of hCG and ultrasound Vital Signs Vital signs: Vital Signs - 8 hr 01/22/23 18:00 01/22/23 19:04 Pulse Rate 84 77 Respiratory Rate 14 14 Blood Pressure 122/76 103/56 L Pulse Oximetry 99 Oxygen Delivery Method Room Air Room Air MDM - Female Genitourinary Lab Data 01/22/23 18:00 01/22/23 18:00 Labs: Lab Results 01/22/23 01/22/23 01/22/23 Range/Units 17:49 18:00 18:00 WBC 6.1 (4.5-11.0) X10^3/uL RBC 4.96 (4.0-5.2) X10^6/uL Hgb 14.7 (12.0-16.0) g/dL Hct 43.5 (36-46) % MCV 87.7 (80-100) fL MCH 29.6 (26-34) PG MCHC 33.7 (30-36) % RDW 13.2 (11.6-14.8) % Plt Count 220 (150-400) X10^3/uL Neut % (Auto) 58.2 (50-75) % Lymph % (Auto) 30.6 (25-40) % [place] % (Auto) 8.5 (3-14) % Eos % (Auto) 2.0 (2-4) % Baso % (Auto) 0.7 (0-2) % Neut # (Auto) 3600 (2383-0485) /uL Lymph # (Auto) 1900 (9612-9783) /uL [place] # (Auto) 500 (0-900) /uL Eos # (Auto) 100 (0-450) /uL Baso # (Auto) 0 (0-100) /uL Sodium 138 (137-145) mmol/L Potassium 3.5 (3.4-5.1) mmol/L Chloride 101 (98-107) mmol/L Carbon Dioxide 25 (22-32) mmol/L BUN 8 (7-17) mg/dL Creatinine 0.56 (0.52-1.04) mg/dL Estimated GFR > 60 (>60) mL/min BUN/Creatinine Ratio 14.3 (6-22) Glucose 90 (70-100) mg/dL Calcium 10.0 (8.4-10.2) mg/dL Total Bilirubin 0.4 (0.2-1.3) mg/dL AST 38 H (14-36) IU/L ALT 30 (<35) IU/L Alkaline Phosphatase 122 (38-126) U/L Total Protein 8.9 H (6.3-8.2) g/dL Albumin 5.1 H (3.5-5.0) g/dL Globulin 3.8 (1.7-4.1) g/dL Albumin/Globulin Ratio 1.3 (1.0-2.8) HCG, Quant 3992.8 mIU/mL Urine Color Yellow Urine Appearance Sl cloudy Urine pH 7.5 (4.5-8.0) Ur Specific [place] 1.010 (1.000-1.035) Urine Protein Negative (Negative) Urine Glucose (UA) Negative (Negative) g/dL Urine Ketones Negative (NEGATIVE) Urine Occult Blood 3+ H (Negative) Urine Nitrate Negative (Negative) Urine Bilirubin Negative (NEGATIVE) Urine Urobilinogen 0.2 (0.2) E.U./dL Ur Leukocyte Esterase Negative (NEGATIVE) Urine RBC 30-100/hpf H (0-5/HPF) Urine WBC None seen (0-5/HPF) Ur Squamous Epith Cells None seen D (0-5/HPF) Urine Bacteria None seen (None) Ur Culture Indicated? Cult not indicated Blood Type 01/22/23 Range/Units 18:00 WBC (4.5-11.0) X10^3/uL RBC (4.0-5.2) X10^6/uL Hgb (12.0-16.0) g/dL Hct (36-46) % MCV (80-100) fL MCH (26-34) PG MCHC (30-36) % RDW (11.6-14.8) % Plt Count (150-400) X10^3/uL Neut % (Auto) (50-75) % Lymph % (Auto) (25-40) % [place] % (Auto) (3-14) % Eos % (Auto) (2-4) % Baso % (Auto) (0-2) % Neut # (Auto) (2892-4940) /uL Lymph # (Auto) (0683-7379) /uL [place] # (Auto) (0-900) /uL Eos # (Auto) (0-450) /uL Baso # (Auto) (0-100) /uL Sodium (137-145) mmol/L Potassium (3.4-5.1) mmol/L Chloride (98-107) mmol/L Carbon Dioxide (22-32) mmol/L BUN (7-17) mg/dL Creatinine (0.52-1.04) mg/dL Estimated GFR (>60) mL/min BUN/Creatinine Ratio (6-22) Glucose (70-100) mg/dL Calcium (8.4-10.2) mg/dL Total Bilirubin (0.2-1.3) mg/dL AST (14-36) IU/L ALT (<35) IU/L Alkaline Phosphatase (38-126) U/L Total Protein (6.3-8.2) g/dL Albumin (3.5-5.0) g/dL Globulin (1.7-4.1) g/dL Albumin/Globulin Ratio (1.0-2.8) HCG, Quant mIU/mL Urine Color Urine Appearance Urine pH (4.5-8.0) Ur Specific [place] (1.000-1.035) Urine Protein (Negative) Urine Glucose (UA) (Negative) g/dL Urine Ketones (NEGATIVE) Urine Occult Blood (Negative) Urine Nitrate (Negative) Urine Bilirubin (NEGATIVE) Urine Urobilinogen (0.2) E.U./dL Ur Leukocyte Esterase (NEGATIVE) Urine RBC (0-5/HPF) Urine WBC (0-5/HPF) Ur Squamous Epith Cells (0-5/HPF) Urine Bacteria (None) Ur Culture Indicated? Blood Type O Positive MDM Narrative Medical decision making narrative: [22] year old patient presents with spotting, at 8 weeks Multiple etiologies for patient's symptoms considered including, but not limited to: [Miscarriage versus ectopic versus other] Prior Charts reviewed in our EMR Primary Historian: patient Labs reviewed and interpreted by myself: O positive, hCG 3992, H/H stable Imaging reviewed: US notes no evidence of intrauterine gestation, ectopic can not be excluded, hemorrhagic left ovarian cyst Consultations: Discussed with on-call OB, see details above Patient's history and physical exam are reassuring. Multiple diagnoses considered as noted above. Ectopic thought unlikely given hCG of nearly 4000 and no sign of ectopic on imagine, however, will follow close with OB as an outpatient. History and physical as well as labs and imaging are most consistent with a missed miscarriage and given lack of ongoing bleeding she is appropriate for discharge and close follow-up Findings and discharge diagnosis discussed with patient/family followed by verbalization of understanding Return precautions discussed with patient/family whom verbalize understanding of diagnosis and plan Discharge Plan Departure Patient Disposition: Home Clinical Impression: Missed Instructions: DI for Miscarriage Activity Restrictions/Additional Instructions: *You have been diagnosed with [vaginal bleeding, combination of labs and imaging would suggest that you likely had a miscarriage over the course of the day.] *What to do: *Please continue to take your regular medications as directed. [ ] New medication prescriptions sent to your pharmacy: [ ] [ ] New medication written as a paper prescription [ ] No new medications given *Please follow up with your primary care provider in 2-3 days, call for an appointment. Let them know you were seen in the Emergency Department and that we ask that you be seen in follow up. We will electronically transmit a record of today's note if your PCP is in our system *Return to Emergency Department if you should have any new, worsening or concerning symptoms, such as [fever greater than 101 F, shaking chills, worsening pain, persistent vomiting, bleeding through more than 1 pad per hour or other concerning symptoms Prescriptions: No Action prenat.vits,krzysztof,hjx-mxbv-llnln Tablet 1 tab PO DAILY Referrals: Tesha Carbajal MD [Primary Care Provider] - Stand Alone Forms: Patient Portal/API
[2023-01-22 18:04] LABS: pH Urine UA 7.5 (4.5-8.0)
[2023-01-22 18:19] LABS: Bacteria Urine None Seen; Culture Indicated Urine Cult Not Indicated; RBC Urine 30-100/HPF (0-5/HPF); Squamous Epithelial Cell Urine None Seen (0-5/HPF); WBC Urine None Seen (0-5/HPF)
[2023-01-22 18:32] LABS: Add Manual Diff / Slide Review NO; Basophils Absolute Auto 0 /uL (0-100); Basophils Percent Auto 0.7 % (0-2); Eosinophils Absolute Auto 100 /uL (0-450); Hematocrit 43.5 % (36-46); Hemoglobin 14.7 g/dL (12.0-16.0); Lymphocytes Absolute Auto 1900 /uL (1100-4500); Lymphocytes Percent Auto 30.6 % (25-40); Mean Corpuscular HGB Conc 33.7 % (30-36); Mean Corpuscular Hemoglobin 29.6 PG (26-34); Mean Corpuscular Volume 87.7 fL (80-100); Monocytes Absolute Auto 500 /uL (0-900); Monocytes Percent Auto 8.5 % (3-14); Neutrophils Absolute Auto 3600 /uL (1500-7000); Neutrophils Percent Auto 58.2 % (50-75); Platelet Count 220 X10^3/uL (150-400); Red Blood Cell Count 4.96 X10^6/uL (4.0-5.2); Red Cell Distribution Width 13.2 % (11.6-14.8); White Blood Cell Count 6.1 X10^3/uL (4.5-11.0)
[2023-01-22 18:35] LABS: Alanine Aminotransferase 30 IU/L (<35); Albumin 5.1 g/dL (3.5-5.0); Albumin Globulin Ratio 1.3 (1.0-2.8); Alkaline Phosphatase 122 U/L (38-126); Aspartate Aminotransferase 38 IU/L (14-36); BUN Creatinine Ratio 14.3 (6-22); Bilirubin Total 0.4 mg/dL (0.2-1.3); Blood Urea Nitrogen 8 mg/dL (7-17); Carbon Dioxide 25 mmol/L (22-32); Chloride 101 mmol/L (98-107); Estimated Glomerular Filt Rate > 60 mL/min (>60); Globulin 3.8 g/dL (1.7-4.1); Glucose 90 mg/dL (70-100); HEMOLYSIS 30 (0-50); Potassium 3.5 mmol/L (3.4-5.1); Sodium 138 mmol/L (137-145); Total Protein 8.9 g/dL (6.3-8.2)
[2023-01-22 18:51] LABS: HCG Quantitative /Beta subunit 3992.8 mIU/mL
[2023-01-22 19:04] VITALS: BP 103/56; PULSE 77; RESP 14; O2SAT 99
== END 2023-01-22 19:38 | disposition home or self-care (01) ==
PROVIDERS: Emergency Medicine; Emergency Provider Emergency Medicine; PCP Family Medicine
DX: O02.1 Missed abortion (principal)
CPT/HCPCS: 36415; 76830; 76856; 80053; 81001; 84702; 85025; 86900; 86901; 93975; 99284

== ENCOUNTER → 2023-01-24 17:00 | Outpatient (CLI) | payer OTHER, MEDICAID, SELFPAY ==
[2023-01-24 18:38] LABS: HCG Quantitative /Beta subunit 619.4 mIU/mL
== END ==
PROVIDERS: PCP Family Medicine; Referring Provider Family Medicine; Visit Provider Family Medicine
DX: O02.1 Missed abortion (principal)
CPT/HCPCS: 36415; 84702

== ENCOUNTER → 2023-02-07 17:06 | Outpatient (CLI) | payer OTHER, MEDICAID, SELFPAY ==
[2023-02-07 18:04] LABS: HCG Quantitative /Beta subunit 11.3 mIU/mL
== END ==
PROVIDERS: PCP Family Medicine; Referring Provider Family Medicine; Visit Provider Family Medicine
DX: O02.1 Missed abortion (principal)
CPT/HCPCS: 36415; 84702

== ENCOUNTER → 2023-02-08 14:52 | Outpatient (CLI) | payer OTHER, MEDICAID, SELFPAY ==
[2023-02-08 16:47] LABS: Free T4, Direct Thyroxine 0.87 ng/dL (0.78-2.19); Progesterone, Total 3.61 ng/mL
[2023-02-08 17:01] LABS: Thyroid Stimulating Hormone 0.876 uIU/mL (0.47-4.68)
[2023-02-12 12:57] LABS: Dilute Russell Viper Venom 30.5 sec (0.0-47.0); Lupus Reflex Interpretation Comment: (.); PTT-LA 41.8 sec (0.0-43.5)
[2023-02-21 18:38] LABS: Cardiolipin IgA Negative (.)
== END ==
PROVIDERS: PCP Family Medicine; Referring Provider Family Medicine; Visit Provider Family Medicine
DX: N96 Recurrent pregnancy loss (principal)
CPT/HCPCS: 36415; 81240; 81241; 81291; 83520; 84144; 84439; 84443; 85598; 85613; 86147; 86148

== ENCOUNTER → 2023-04-09 17:36 | Outpatient (CLI) | payer OTHER, MEDICAID, SELFPAY ==
[2023-05-02 19:37] LABS: Cardiolipin IgA Negative (.)
== END ==
PROVIDERS: PCP Family Medicine; Referring Provider Family Medicine; Visit Provider Family Medicine
DX: N96 Recurrent pregnancy loss (principal)
CPT/HCPCS: 36415; 83520; 86147; 86148

== ENCOUNTER → 2024-02-24 15:23 | Outpatient (CLI) | payer OTHER, MEDICAID, SELFPAY ==
[2024-02-24 16:31] LABS: Add Manual Diff / Slide Review NO; Basophils Absolute Auto 0 /uL (0-100); Basophils Percent Auto 0.4 % (0-2); Eosinophils Absolute Auto 0 /uL (0-450); Eosinophils Percent Auto 0.7 % (2-4); Hematocrit 39.7 % (36-46); Hemoglobin 13.2 g/dL (12.0-16.0); Lymphocytes Absolute Auto 1400 /uL (1100-4500); Lymphocytes Percent Auto 28.5 % (25-40); Mean Corpuscular HGB Conc 33.2 % (30-36); Mean Corpuscular Hemoglobin 29.2 PG (26-34); Mean Corpuscular Volume 87.9 fL (80-100); Monocytes Absolute Auto 400 /uL (0-900); Monocytes Percent Auto 8.5 % (3-14); Neutrophils Absolute Auto 3100 /uL (1500-7000); Neutrophils Percent Auto 61.9 % (50-75); Platelet Count 230 X10^3/uL (150-400); Red Blood Cell Count 4.52 X10^6/uL (4.0-5.2); Red Cell Distribution Width 13.6 % (11.6-14.8)
== END ==
PROVIDERS: Family Provider Family Medicine; PCP Family Medicine; Referring Provider Family Medicine; Visit Provider Family Medicine
DX: N92.0 Excessive and frequent menstruation with regular cycle (principal); N96 Recurrent pregnancy loss
CPT/HCPCS: 36415; 85025

== ENCOUNTER → 2024-02-26 15:04 | Outpatient (CLI) | payer OTHER, MEDICAID, SELFPAY ==
--- NOTE | 2024-02-26 15:00 | DI.US.S_ITS ---
PROCEDURE: US PELVIC COMPLETE INDICATIONS: menorrhagia TECHNIQUE: Real-time scanning was performed of the pelvic organs, with image documentation. Additional endovaginal scanning was necessary due to incomplete visualization of the adnexal and endometrial structures by transabdominal scanning. COMPARISON: [facility], , US PELVIC COMPLETE, 01/22/2023, 18:09. FINDINGS: Uterus: Uterus is retroverted and normal in size at 8.7 x 3.8 x 5.5 cm. The myometrium is homogeneous. The endometrium measures 13 mm combined thickness. No uterine fibroids. Ovaries: The right ovary is absent. The left ovary measures 4.6 x 2.4 x 3.4 cm, with a calculated ovarian volume of 19.2 cc. Left ovarian simple cyst measuring 1.9 x 1.6 x 2.2 centimeters. Left ovary is otherwise normal in appearance. Other: No pathologic free abdominal or pelvic fluid. IMPRESSION: Endometrium is mildly prominent but normal in thickness for a premenopausal female measuring 13 millimeters. Right ovary is absent. Left ovary contains a 2.2 centimeter simple cyst, otherwise normal in appearance. We strive to produce accurate, complete, and clear reports of imaging services. To assist us in improving patient care, this report was composed using standard report templates and voice recognition software. Therefore, it may contain abnormal punctuation, insertions and/or omissions. Occasional wrong-word or sound-alike substitutions may occur. Though we review the report and make efforts to correct it, we do recommend that the report be read carefully in proper context to recognize any text inaccuracies. Dictated by: Mat Villanueva M.D. on 02/26/2024 at 16:20 Approved by: Mat Villanueva M.D. on 02/26/2024 at 16:22
== END ==
PROVIDERS: Family Provider Family Medicine; PCP Family Medicine; Referring Provider Family Medicine; Visit Provider Family Medicine
DX: N92.0 Excessive and frequent menstruation with regular cycle (principal); N83.292 Other ovarian cyst, left side; Z90.721 Acquired absence of ovaries, unilateral
CPT/HCPCS: 76856

== ENCOUNTER → 2024-03-21 09:31 | Outpatient (CLI) | payer OTHER, MEDICAID, SELFPAY ==
[2024-03-21 11:27] LABS: Glucose 70 mg/dL (70-100)
[2024-03-22 11:08] LABS: Insulin Level Total 4.1 uIU/mL (2.6-24.9)
[2024-03-23 16:10] LABS: IGF-1 145 ng/mL (101-347)
== END ==
PROVIDERS: Family Provider Family Medicine; PCP Family Medicine; Referring Provider Family Medicine; Visit Provider Family Medicine
DX: E16.2 Hypoglycemia, unspecified (principal)
CPT/HCPCS: 36415; 82947; 83036; 83525; 84305

== ENCOUNTER 2024-03-25 15:15 | Outpatient (RCR) | payer OTHER, MEDICAID, SELFPAY ==
--- NOTE | 2024-01-09 16:45 | PT.OPPOC ---
Physical, Occupational & Speech Therapy At [facility] Current Diagnoses Pain in left knee (01/09/24) Pain in unspecified knee (01/09/24) Stiffness of left hip, not elsewhere classified (01/09/24) Visit Care Team Role Provider Type Tesha Carbajal MD Attending Provider Physician Family Provider Primary Care Provider Referring Provider Specialty: Family Practice Address: [address] [place] [address], [place], [place], [facility] Email: [email or web address] Plan Of Care PT-OP-B Current Condition Start: 01/09/24 17:33 Freq: Status: Active Protocol: Document 01/09/24 16:10 DCW (Rec: 01/10/24 08:39 DCW [id number]) Current Condition History of Current Condition Onset Date Three month history Current Complaints Left knee pain History of Current Condition Pt is a 23 year old female presenting with a three month history of left knee pain. Pain located mainly medially. Pain present with walking on an incline/decline or stairs. Experiences occasional popping , popping is painful sometimes . Worse if she is carrying something with increased weight. Does note occasional feeling that her knee is going to buckle. Does have a past history (around age 15) of ligamental tear in her left knee, pt reports at that time, was a partial tear, no surgical intervention. PT-OP-T Assessment and Plan Start: 01/09/24 17:33 Freq: Status: Active Protocol: Document 01/09/24 16:10 DCW (Rec: 01/10/24 08:48 DCW [id number]) Physical Therapy Assessment Rehab Potential Rehabilitation Potential Excellent Evaluation Complexity Number of Personal Factors/Comorbidities 0 Number of Body Systems Impaired 4 or More Clinical Presentation at Evaluation Stable Impairments Impairments Functional Activities, Functional Mobility,Pain, Strength,Tone Goals Two Impairment Pt experiences increased left knee pain ascending/descending slope Assisted Goal (LTG) PT to exhibit ability to ambulate up and down hills without increased knee pain over two weeks in order to return to prior activity levels. LTG Duration 03/10/24 One Impairment Pt does not have an appropriate home exercise program Short Term Goal (STG) Pt to be independent and compliant with an appropriate HEP STG Duration 02/08/24 Assessment Summary Assessment Pt presents with signs and symptoms consistent with referring diagnosis. Left anteriomedial knee pain presents when walking on hills /stairs, pivoting on her planted left foot, and experiences sensation of buckling in her knee occasionally. Likely result of patellofemoral syndrome or mild meniscus sprain. Pt does exhibit some stiffness and weakness in left hip, which may be a compounding factor in her knee pain. Pt shows positive Lani's test and Piriformis tightness in left hip. When attempting to stretch, felt much more pull on left side. Pt should benefit from skilled therapy focusing on hip and knee strengthening, knee joint mobilization, flexibility/ stretching, and focus on knee and hip stabilization. Physical Therapy Plan Frequency and Duration Frequency of Treatment 2x/Week Plan of Care Start Date 01/09/24 Plan of Care End Date 03/10/24 Therapeutic Interventions Therapeutic Interventions Home Exercise Program,Joint Mobilizations,Manual Therapy, Neuromuscular Re-education, Patient/Caregiver Education, Self-Care/Home Management,Soft Tissue Mobilization,Taping, Therapeutic Activities, Therapeutic Exercises Modalities Cold Pack/Ice Massage,Electric Stimulation,Hot Packs, Ultrasound Next Visit Focus/Plan Next Note Type Treatment Note Next Visit Plan Hip/knee strengthening, joint mobs, stretching Plan of Care Dates Plan of Care Start Date 01/09/24 Plan of Care End Date 03/10/24 Electronically Signed by: David Petty, PT 01/10/24 0849 If you are in agreement with this Plan of Care, please return a signed and dated copy. I have reviewed this Plan of Care and certify that the skilled therapy services above are required to meet the patient?s needs. Physician Signature Date Printed Name and Credentials Clinical Instructor Signature Printed Name and Credentials
--- NOTE | 2024-01-09 16:45 | PT.OIE ---
Current Diagnoses Pain in left knee (01/09/24) Pain in unspecified knee (01/09/24) Stiffness of left hip, not elsewhere classified (01/09/24) Past Medical History (Last Reviewed 01/23/23 @ 01:37 by Konstantin Mckeon DO) Cancer (~2013) Exercise-induced asthma (~2019) Germ cell tumor of ovary (~12/2013) Hearing loss (~2013) History of being hospitalized (~2013) History of chemotherapy (~01/2014) SAB (spontaneous ) (~04/04/20) SAB (spontaneous ) (~08/17/20) Tumor (~2013) Past Surgical History (Last Reviewed 01/23/23 @ 01:37 by Konstantin Mckeon DO) History of laparoscopy (~01/20/14) History of removal of Port-a-Cath (~05/07/14) Status post surgery (~02/11/14) Visit Care Team Role Provider Type Tesha Carbajal MD Attending Provider Physician Family Provider Primary Care Provider Referring Provider Specialty: [facility] Address: [address] [place] [address] Email: [email or web address] Physical Therapy Initial Evaluation PT-OP-A Visit Information Start: 01/09/24 17:33 Freq: Status: Active Protocol: Document 01/09/24 16:10 DCW (Rec: 01/09/24 17:49 DCW [id number]) Out-Patient Physical Therapy Visit Information Visit Information Visit Type Initial Evaluation Visit Note Late arrival Visit Start Time 16:10 Visit Stop Time 16:45 Visit Number 1 Number of FOUNDER AND CEO Visits 0 Evaluation Information Evaluation Date 01/09/24 PT-OP-B Current Condition Start: 01/09/24 17:33 Freq: Status: Active Protocol: Document 01/09/24 16:10 DCW (Rec: 01/10/24 08:39 DCW [id number]) Current Condition History of Current Condition Onset Date Three month history Current Complaints Left knee pain History of Current Condition Pt is a 23 year old female presenting with a three month history of left knee pain. Pain located mainly medially. Pain present with walking on an incline/decline or stairs. Experiences occasional popping , popping is painful sometimes . Worse if she is carrying something with increased weight. Does note occasional feeling that her knee is going to buckle. Does have a past history (around age 15) of ligamental tear in her left knee, pt reports at that time, was a partial tear, no surgical intervention. PT-OP-C Subjective Start: 01/09/24 17:33 Freq: Status: Active Protocol: Document 01/09/24 16:10 DCW (Rec: 01/09/24 17:49 DCW [id number]) OP-PT Subjective Patient Comments Patient Comments It feels better if I just walk on level ground. PT-OP-F Manual Assessment Start: 01/09/24 17:33 Freq: Status: Active Protocol: Document 01/09/24 16:10 DCW (Rec: 01/10/24 08:39 DCW [id number]) Manual Assessments Joint Mobility Assessment Joint Mobility Assessment Point-specific pain along anteriormedial left knee joint line. Increased stiffness in left hip PT-OP-L Special Tests Start: 01/09/24 17:33 Freq: Status: Active Protocol: Document 01/09/24 16:10 DCW (Rec: 01/10/24 08:39 DCW [id number]) Special Tests Lumbar Spine Special Tests A-P Shearing Test Results Positive Hip Special Tests Lani's Test Test Results Positive left Scour Test Test Results Negative Piriformis Test Results Mild tightness left JESUS Test Results Negative Knee Special Tests Varus- 25 Degrees Test Results Negative Valgus- 25 Degrees Test Results Negative Posterior Draw Test Results Negative Patellar Grind Test Test Results Negative Patella Tap Test Results Positive left Blanco Test Test Results Negative Bounce Home Test Results Negative Apprehension Test Test Results Negative Apley's Compression Test Results Negative Anterior Draw Test Results Negative PT-OP-M Strength Start: 01/09/24 17:33 Freq: Status: Active Protocol: Document 01/09/24 16:10 DCW (Rec: 01/10/24 08:39 DCW [id number]) Hip Strength Hip Manual Muscle Testing Right Flexion (L2) 4+ Good+ Abduction 4+ Good+ Adduction 4+ Good+ External Rotation 4 Good Internal Rotation 4- Good- Left Flexion (L2) 4+ Good+ Abduction 4+ Good+ Adduction 4+ Good+ External Rotation 4 Good Internal Rotation 4- Good- Knee Strength Knee Manual Muscle Testing Right Flexion (S2) 4+ Good+ Extension (L3) 4+ Good+ Left Flexion (S2) 4+ Good+ Extension (L3) 4+ Good+ PT-OP-Q Treatments Start: 01/09/24 17:33 Freq: Status: Active Protocol: Document 01/09/24 16:10 DCW (Rec: 01/09/24 17:49 DCW [id number]) Therapeutic Exercises Supine Exercises Hip Flexor Supine Exercise Name Hip Flexor stretch Side left Sidelying Exercises Clamshell Sidelying Exercise Name Clamshell Side left Sitting Exercises Piriformis Sitting Exercise Name Figure-4 Side left PT-OP-T Assessment and Plan Start: 01/09/24 17:33 Freq: Status: Active Protocol: Document 01/09/24 16:10 DCW (Rec: 01/10/24 08:48 DCW [id number]) Physical Therapy Assessment Rehab Potential Rehabilitation Potential Excellent Evaluation Complexity Number of Personal Factors/Comorbidities 0 Number of Body Systems Impaired 4 or More Clinical Presentation at Evaluation Stable Impairments Impairments Functional Activities, Functional Mobility,Pain, Strength,Tone Goals Two Impairment Pt experiences increased left knee pain ascending/descending slope Residential Goal (LTG) PT to exhibit ability to ambulate up and down hills without increased knee pain over two weeks in order to return to prior activity levels. LTG Duration 03/10/24 One Impairment Pt does not have an appropriate home exercise program Short Term Goal (STG) Pt to be independent and compliant with an appropriate HEP STG Duration 02/08/24 Assessment Summary Assessment Pt presents with signs and symptoms consistent with referring diagnosis. Left anteriomedial knee pain presents when walking on hills /stairs, pivoting on her planted left foot, and experiences sensation of buckling in her knee occasionally. Likely result of patellofemoral syndrome or mild meniscus sprain. Pt does exhibit some stiffness and weakness in left hip, which may be a compounding factor in her knee pain. Pt shows positive Lani's test and Piriformis tightness in left hip. When attempting to stretch, felt much more pull on left side. Pt should benefit from skilled therapy focusing on hip and knee strengthening, knee joint mobilization, flexibility/ stretching, and focus on knee and hip stabilization. Physical Therapy Plan Frequency and Duration Frequency of Treatment 2x/Week Plan of Care Start Date 01/09/24 Plan of Care End Date 03/10/24 Therapeutic Interventions Therapeutic Interventions Home Exercise Program,Joint Mobilizations,Manual Therapy, Neuromuscular Re-education, Patient/Caregiver Education, Self-Care/Home Management,Soft Tissue Mobilization,Taping, Therapeutic Activities, Therapeutic Exercises Modalities Cold Pack/Ice Massage,Electric Stimulation,Hot Packs, Ultrasound Next Visit Focus/Plan Next Note Type Treatment Note Next Visit Plan Hip/knee strengthening, joint mobs, stretching
--- NOTE | 2024-01-13 16:46 | PT.OTN ---
Current Diagnoses Pain in left knee (01/13/24) Pain in unspecified knee (01/13/24) Stiffness of left hip, not elsewhere classified (01/13/24) Physical Therapy Treatment Note PT-OP-A Visit Information Start: 01/09/24 17:33 Freq: Status: Active Protocol: Document 01/13/24 16:02 DCW (Rec: 01/13/24 16:46 DCW [id number]) Out-Patient Physical Therapy Visit Information Visit Information Visit Type Treatment Note Visit Start Time 16:02 Visit Stop Time 16:45 Visit Number 2 Number of SOLVENT RECOVERER Visits 0 Evaluation Information Evaluation Date 01/09/24 PT-OP-B Current Condition Start: 01/09/24 17:33 Freq: Status: Active Protocol: Document 01/09/24 16:10 DCW (Rec: 01/10/24 08:39 DCW [id number]) Current Condition History of Current Condition Onset Date Three month history Current Complaints Left knee pain History of Current Condition Pt is a 23 year old female presenting with a three month history of left knee pain. Pain located mainly medially. Pain present with walking on an incline/decline or stairs. Experiences occasional popping , popping is painful sometimes . Worse if she is carrying something with increased weight. Does note occasional feeling that her knee is going to buckle. Does have a past history (around age 15) of ligamental tear in her left knee, pt reports at that time, was a partial tear, no surgical intervention. PT-OP-C Subjective Start: 01/09/24 17:33 Freq: Status: Active Protocol: Document 01/13/24 16:02 DCW (Rec: 01/13/24 16:46 DCW [id number]) OP-PT Subjective Patient Comments Patient Comments Pt notes that yesterday, she kicked her leg out pretty hard , and felt increased pain at end-range. Is focusing on moving her house. PT-OP-F Manual Assessment Start: 01/09/24 17:33 Freq: Status: Active Protocol: Document 01/09/24 16:10 DCW (Rec: 01/10/24 08:39 DCW [id number]) Manual Assessments Joint Mobility Assessment Joint Mobility Assessment Point-specific pain along anteriormedial left knee joint line. Increased stiffness in left hip PT-OP-L Special Tests Start: 01/09/24 17:33 Freq: Status: Active Protocol: Document 01/09/24 16:10 DCW (Rec: 01/10/24 08:39 [facility] [id number]) Special Tests Lumbar Spine Special Tests A-P Shearing Test Results Positive Hip Special Tests Lani's Test Test Results Positive left Scour Test Test Results Negative Piriformis Test Results Mild tightness left JESUS Test Results Negative Knee Special Tests Varus- 25 Degrees Test Results Negative Valgus- 25 Degrees Test Results Negative Posterior Draw Test Results Negative Patellar Grind Test Test Results Negative Patella Tap Test Results Positive left Blanco Test Test Results Negative Bounce Home Test Results Negative Apprehension Test Test Results Negative Apley's Compression Test Results Negative Anterior Draw Test Results Negative PT-OP-M Strength Start: 01/09/24 17:33 Freq: Status: Active Protocol: Document 01/09/24 16:10 DCW (Rec: 01/10/24 08:39 [facility] [id number]) Hip Strength Hip Manual Muscle Testing Right Flexion (L2) 4+ Good+ Abduction 4+ Good+ Adduction 4+ Good+ External Rotation 4 Good Internal Rotation 4- Good- Left Flexion (L2) 4+ Good+ Abduction 4+ Good+ Adduction 4+ Good+ External Rotation 4 Good Internal Rotation 4- Good- Knee Strength Knee Manual Muscle Testing Right Flexion (S2) 4+ Good+ Extension (L3) 4+ Good+ Left Flexion (S2) 4+ Good+ Extension (L3) 4+ Good+ PT-OP-Q Treatments Start: 01/09/24 17:33 Freq: Status: Active Protocol: Document 01/13/24 16:02 DCW (Rec: 01/13/24 16:46 DCW [id number]) Gym Equipment Shuttle Balance Red Details Lateral weight shift Therapeutic Ball Bridging Exercise Details Bridging /c feet on ball Ball Size/Color Blue - 45 cm Body Position Supine Comments Added HS curls while in bridge Therapeutic Exercises Supine Exercises Piriformis Supine Exercise Name Manual figure-4 Side left Bridging Supine Exercise Name Bridging /c adductor ball squeeze Side bilateral SLR Supine Exercise Name SLR /c ER Side left Resistance 5 Sidelying Exercises Hip Adduction Sidelying Exercise Name Hip Adduction - SLR Side left Resistance 5# Hip Flexor stretch Sidelying Exercise Name Hip Flexor Stretch Side left Comments Manual Standing Exercises TKE Standing Exercise Name TKE Side left Resistance Lv 3 Other Exercises Step-ups Other Exercise Name Step-ups Side bilateral BOSU Lunge Other Exercise Name BOSU Lunge Side bilateral Equipment Used Blue LYNSEYU PT-OP-T Assessment and Plan Start: 01/09/24 17:33 Freq: Status: Active Protocol: Document 01/13/24 16:02 DCW (Rec: 01/13/24 16:46 DCW [id number]) Physical Therapy Assessment Impairments Impairments Functional Activities, Functional Mobility,Pain, Strength,Tone Goals Two Impairment Pt experiences increased left knee pain ascending/descending slope Fdc Goal (LTG) PT to exhibit ability to ambulate up and down hills without increased knee pain over two weeks in order to return to prior activity levels. LTG Duration 03/10/24 One Impairment Pt does not have an appropriate home exercise program Short Term Goal (STG) Pt to be independent and compliant with an appropriate HEP STG Duration 02/08/24 Assessment Summary Assessment Pt noted some difficulty with VMO exercises, but overall tolerated activities well. No increased knee pain with exercises today. Continue to focus on improving hip and knee mobility, improve LE strength, and decreasing tone. Physical Therapy Plan Frequency and Duration Frequency of Treatment 2x/Week Plan of Care Start Date 01/09/24 Plan of Care End Date 03/10/24 Therapeutic Interventions Therapeutic Interventions Home Exercise Program,Joint Mobilizations,Manual Therapy, Neuromuscular Re-education, Patient/Caregiver Education, Self-Care/Home Management,Soft Tissue Mobilization,Taping, Therapeutic Activities, Therapeutic Exercises Modalities Cold Pack/Ice Massage,Electric Stimulation,Hot Packs, Ultrasound Next Visit Focus/Plan Next Note Type Treatment Note Next Visit Plan Hip/knee strengthening, joint mobs, stretching
--- NOTE | 2024-01-24 16:42 | PT.OTN ---
Current Diagnoses Pain in left knee (01/24/24) Pain in unspecified knee (01/24/24) Stiffness of left hip, not elsewhere classified (01/24/24) Physical Therapy Treatment Note PT-OP-A Visit Information Start: 01/09/24 17:33 Freq: Status: Active Protocol: Document 01/24/24 16:00 DCW (Rec: 01/24/24 16:41 DCW [id number]) Out-Patient Physical Therapy Visit Information Visit Information Visit Type Treatment Note Visit Start Time 16:00 Visit Stop Time 16:45 Visit Number 3 Number of CAR WASH ATTENDANT Visits 0 Evaluation Information Evaluation Date 01/09/24 PT-OP-B Current Condition Start: 01/09/24 17:33 Freq: Status: Active Protocol: Document 01/09/24 16:10 DCW (Rec: 01/10/24 08:39 DCW [id number]) Current Condition History of Current Condition Onset Date Three month history Current Complaints Left knee pain History of Current Condition Pt is a 23 year old female presenting with a three month history of left knee pain. Pain located mainly medially. Pain present with walking on an incline/decline or stairs. Experiences occasional popping , popping is painful sometimes . Worse if she is carrying something with increased weight. Does note occasional feeling that her knee is going to buckle. Does have a past history (around age 15) of ligamental tear in her left knee, pt reports at that time, was a partial tear, no surgical intervention. PT-OP-C Subjective Start: 01/09/24 17:33 Freq: Status: Active Protocol: Document 01/24/24 16:00 DCW (Rec: 01/24/24 16:41 DCW [id number]) OP-PT Subjective Patient Comments Patient Comments Pt notes her knee has been hurting more the past few days . PT-OP-F Manual Assessment Start: 01/09/24 17:33 Freq: Status: Active Protocol: Document 01/09/24 16:10 DCW (Rec: 01/10/24 08:39 DCW [id number]) Manual Assessments Joint Mobility Assessment Joint Mobility Assessment Point-specific pain along anteriormedial left knee joint line. Increased stiffness in left hip PT-OP-L Special Tests Start: 01/09/24 17:33 Freq: Status: Active Protocol: Document 01/09/24 16:10 DCW (Rec: 01/10/24 08:39 [facility] [id number]) Special Tests Lumbar Spine Special Tests A-P Shearing Test Results Positive Hip Special Tests Lani's Test Test Results Positive left Scour Test Test Results Negative Piriformis Test Results Mild tightness left JESUS Test Results Negative Knee Special Tests Varus- 25 Degrees Test Results Negative Valgus- 25 Degrees Test Results Negative Posterior Draw Test Results Negative Patellar Grind Test Test Results Negative Patella Tap Test Results Positive left Blanco Test Test Results Negative Bounce Home Test Results Negative Apprehension Test Test Results Negative Apley's Compression Test Results Negative Anterior Draw Test Results Negative PT-OP-M Strength Start: 01/09/24 17:33 Freq: Status: Active Protocol: Document 01/09/24 16:10 DCW (Rec: 01/10/24 08:39 [facility] [id number]) Hip Strength Hip Manual Muscle Testing Right Flexion (L2) 4+ Good+ Abduction 4+ Good+ Adduction 4+ Good+ External Rotation 4 Good Internal Rotation 4- Good- Left Flexion (L2) 4+ Good+ Abduction 4+ Good+ Adduction 4+ Good+ External Rotation 4 Good Internal Rotation 4- Good- Knee Strength Knee Manual Muscle Testing Right Flexion (S2) 4+ Good+ Extension (L3) 4+ Good+ Left Flexion (S2) 4+ Good+ Extension (L3) 4+ Good+ PT-OP-Q Treatments Start: 01/09/24 17:33 Freq: Status: Active Protocol: Document 01/24/24 16:00 DCW (Rec: 01/24/24 16:41 DCW [id number]) Gym Equipment Shuttle Recovery Plyometric Details Plyometric hopping Resistance 25# Reps/Time VCs for knee alignment Shuttle Balance Red Details Lateral weight shift Therapeutic Ball Bridging Exercise Details Bridging /c feet on ball - HS curls Ball Size/Color Blue - 45 cm Body Position Supine Therapeutic Exercises Supine Exercises Single KtC Supine Exercise Name Single KtC Side left Piriformis Supine Exercise Name Manual figure-4 Side left Standing Exercises ER/IR Standing Exercise Name Half-kneel on stool Side left Resistance Lv 3 Other Exercises Sliders Other Exercise Name Sliders - Abduction, Extension Side bilateral Squat Other Exercise Name SL Squat Side left Equipment Used Green foam Comments Reaching out to tap FitBall with right foot Foam Other Exercise Name Stride-length tandem stance on foam Side bilateral Step-ups Other Exercise Name Step-ups Side bilateral Equipment Used 8 Comments Lateral BOSU Lunge Other Exercise Name BOSU Lunge Side bilateral Equipment Used Blue BOSU Manual Therapy Treatment Consent Patient gave verbal consent for manual Yes treatment Joint Mobilizations Knee Joint L Knee Direction P<->A Grade III Body Position Hooklying Patella Joint L Patella Direction Inf<->Sup Grade III Body Position Hooklying PT-OP-T Assessment and Plan Start: 01/09/24 17:33 Freq: Status: Active Protocol: Document 01/24/24 16:00 DCW (Rec: 01/24/24 16:41 DCW [id number]) Physical Therapy Assessment Impairments Impairments Functional Activities, Functional Mobility,Pain, Strength,Tone Goals Two Impairment Pt experiences increased left knee pain ascending/descending slope Outside Operator Goal (LTG) PT to exhibit ability to ambulate up and down hills without increased knee pain over two weeks in order to return to prior activity levels. LTG Duration 03/10/24 One Impairment Pt does not have an appropriate home exercise program Short Term Goal (STG) Pt to be independent and compliant with an appropriate HEP STG Duration 02/08/24 Assessment Summary Assessment Required verbal cues for proper knee alignment on multiple activities, pt admitted it felt weird. Good response to activity, pt able to perform with no increases in pain, although did note fatigue. Physical Therapy Plan Frequency and Duration Frequency of Treatment 2x/Week Plan of Care Start Date 01/09/24 Plan of Care End Date 03/10/24 Therapeutic Interventions Therapeutic Interventions Home Exercise Program,Joint Mobilizations,Manual Therapy, Neuromuscular Re-education, Patient/Caregiver Education, Self-Care/Home Management,Soft Tissue Mobilization,Taping, Therapeutic Activities, Therapeutic Exercises Modalities Cold Pack/Ice Massage,Electric Stimulation,Hot Packs, Ultrasound Next Visit Focus/Plan Next Note Type Treatment Note Next Visit Plan Hip/knee strengthening, joint mobs, stretching
--- NOTE | 2024-02-05 17:15 | PT.OTN ---
Current Diagnoses Pain in left knee (02/05/24) Pain in unspecified knee (02/05/24) Stiffness of left hip, not elsewhere classified (02/05/24) Physical Therapy Treatment Note PT-OP-A Visit Information Start: 01/09/24 17:33 Freq: Status: Active Protocol: Document 02/05/24 16:11 NBM (Rec: 02/05/24 17:14 [facility] [id number]) Out-Patient Physical Therapy Visit Information Visit Information Visit Type Treatment Note Visit Start Time 16:18 Visit Stop Time 17:08 Visit Number 4 Number of PRE BILLING SPECIALIST Visits 1 Evaluation Information Evaluation Date 01/09/24 PT-OP-B Current Condition Start: 01/09/24 17:33 Freq: Status: Active Protocol: Document 01/09/24 16:10 DCW (Rec: 01/10/24 08:39 DCW [id number]) Current Condition History of Current Condition Onset Date Three month history Current Complaints Left knee pain History of Current Condition Pt is a 23 year old female presenting with a three month history of left knee pain. Pain located mainly medially. Pain present with walking on an incline/decline or stairs. Experiences occasional popping , popping is painful sometimes . Worse if she is carrying something with increased weight. Does note occasional feeling that her knee is going to buckle. Does have a past history (around age 15) of ligamental tear in her left knee, pt reports at that time, was a partial tear, no surgical intervention. PT-OP-C Subjective Start: 01/09/24 17:33 Freq: Status: Active Protocol: Document 02/05/24 16:11 NBM (Rec: 02/05/24 17:14 [facility] [id number]) OP-PT Subjective Patient Comments Patient Comments Melvi reports she was playing soccer and when she kicked the ball with the L leg toes pointed out she heard a pop and had instant pain 5/10 which took three minutes to get better. She rested and walked favoring it and massaged right where pain is ( points to L anteriomedial knee jt line). She wants to try same ex's from last session to see if she can do them since ex. She still has knee compression sleeve from injury when she was 15 but hasn't used it. PT-OP-F Manual Assessment Start: 01/09/24 17:33 Freq: Status: Active Protocol: Document 01/09/24 16:10 DCW (Rec: 01/10/24 08:39 DCW [id number]) Manual Assessments Joint Mobility Assessment Joint Mobility Assessment Point-specific pain along anteriormedial left knee joint line. Increased stiffness in left hip PT-OP-L Special Tests Start: 01/09/24 17:33 Freq: Status: Active Protocol: Document 01/09/24 16:10 DCW (Rec: 01/10/24 08:39 DCW [id number]) Special Tests Lumbar Spine Special Tests A-P Shearing Test Results Positive Hip Special Tests Lani's Test Test Results Positive left Scour Test Test Results Negative Piriformis Test Results Mild tightness left JESUS Test Results Negative Knee Special Tests Varus- 25 Degrees Test Results Negative Valgus- 25 Degrees Test Results Negative Posterior Draw Test Results Negative Patellar Grind Test Test Results Negative Patella Tap Test Results Positive left Blanco Test Test Results Negative Bounce Home Test Results Negative Apprehension Test Test Results Negative Apley's Compression Test Results Negative Anterior Draw Test Results Negative PT-OP-M Strength Start: 01/09/24 17:33 Freq: Status: Active Protocol: Document 01/09/24 16:10 DCW (Rec: 01/10/24 08:39 DCW [id number]) Hip Strength Hip Manual Muscle Testing Right Flexion (L2) 4+ Good+ Abduction 4+ Good+ Adduction 4+ Good+ External Rotation 4 Good Internal Rotation 4- Good- Left Flexion (L2) 4+ Good+ Abduction 4+ Good+ Adduction 4+ Good+ External Rotation 4 Good Internal Rotation 4- Good- Knee Strength Knee Manual Muscle Testing Right Flexion (S2) 4+ Good+ Extension (L3) 4+ Good+ Left Flexion (S2) 4+ Good+ Extension (L3) 4+ Good+ PT-OP-Q Treatments Start: 01/09/24 17:33 Freq: Status: Active Protocol: Document 02/05/24 16:11 NBM (Rec: 02/05/24 17:14 NBM [id number]) Gym Equipment Shuttle Recovery Plyometric Details Plyometric hopping - not today d/t increased L knee pain w/ BOSU lunge Resistance 25# Reps/Time VCs for knee alignment Therapeutic Exercises Standing Exercises ER/IR Standing Exercise Name Half-kneel on stool Side left Resistance Lv 3 Reps/Minutes x15 each Comments pain-free TKE Standing Exercise Name TKE - 3-way (fwd, lat) Side left Resistance Lv 3 Reps/Minutes 10 x 2 breath hold (~5s) Other Exercises Sliders Other Exercise Name Sliders - Abduction, Extension Side bilateral Reps/Minutes x10 ea, abduction fatigueing Comments cues for L>R neutral foot position Squat Other Exercise Name SL Squat, emphasis on LE alignment Side left Equipment Used firm>Green foam Reps/Minutes x10 ea Comments Reaching out to tap FitBall with right foot Foam Other Exercise Name Stride-length tandem stance on foam Side bilateral Reps/Minutes x30s ea Comments pain-free, cue for L neutral foot position BOSU Lunge Other Exercise Name BOSU Lunge Side bilateral Equipment Used Blue BOSU Reps/Minutes x15 PT-OP-T Assessment and Plan Start: 01/09/24 17:33 Freq: Status: Active Protocol: Document 02/05/24 16:11 [facility] (Rec: 02/05/24 17:14 [facility] [id number]) Physical Therapy Assessment Goals Two Impairment Pt experiences increased left knee pain ascending/descending slope Tombstone Erector Goal (LTG) PT to exhibit ability to ambulate up and down hills without increased knee pain over two weeks in order to return to prior activity levels. LTG Duration 03/10/24 One Impairment Pt does not have an appropriate home exercise program Short Term Goal (STG) Pt to be independent and compliant with an appropriate HEP STG Duration 02/08/24 Assessment Summary Assessment Melvi presents after re-injury to L knee a few days ago upon contacting kicking ball in hip ER position wtih toes pointing laterally causing 5/ 10 pain at the time, 0/10 pain currently. Plyometrics not performed today due to increased pain in L knee w/ BOSU lunge. Pt requires consistent cueing for LE alignment and is challenged to maintain neutral foot position w/ hip adduction on slider, fatigueing at 10 repetitions w/ stabilizers shaking visibly. Significant time spent educating pt on ligament function for knee stability and importance of knee alignment and hip hinge to reduce stress at knee joint . Pt is encouraged to don knee compression sleeve which she already owns for increased knee stability with activty. Physical Therapy Plan Frequency and Duration Frequency of Treatment 2x/Week Plan of Care Start Date 01/09/24 Plan of Care End Date 03/10/24 Therapeutic Interventions Therapeutic Interventions Home Exercise Program,Joint Mobilizations,Manual Therapy, Neuromuscular Re-education, Patient/Caregiver Education, Self-Care/Home Management,Soft Tissue Mobilization,Taping, Therapeutic Activities, Therapeutic Exercises Modalities Cold Pack/Ice Massage,Electric Stimulation,Hot Packs, Ultrasound Next Visit Focus/Plan Next Note Type Treatment Note Next Visit Plan Consider issued HEP HO. POC: Hip/knee strengthening, joint mobs, stretching
--- NOTE | 2024-02-12 17:22 | PT.OTN ---
Current Diagnoses Pain in left knee (02/12/24) Pain in unspecified knee (02/12/24) Stiffness of left hip, not elsewhere classified (02/12/24) Physical Therapy Treatment Note PT-OP-A Visit Information Start: 01/09/24 17:33 Freq: Status: Active Protocol: Document 02/12/24 16:28 NBM (Rec: 02/12/24 17:22 [facility] [place] [id number]) Out-Patient Physical Therapy Visit Information Visit Information Visit Type Treatment Note Visit Start Time 16:25 Visit Stop Time 17:15 Visit Number 5 Number of FRESCO ARTIST Visits 2 Evaluation Information Evaluation Date 01/09/24 PT-OP-B Current Condition Start: 01/09/24 17:33 Freq: Status: Active Protocol: Document 01/09/24 16:10 DCW (Rec: 01/10/24 08:39 DCW [id number]) Current Condition History of Current Condition Onset Date Three month history Current Complaints Left knee pain History of Current Condition Pt is a 23 year old female presenting with a three month history of left knee pain. Pain located mainly medially. Pain present with walking on an incline/decline or stairs. Experiences occasional popping , popping is painful sometimes . Worse if she is carrying something with increased weight. Does note occasional feeling that her knee is going to buckle. Does have a past history (around age 15) of ligamental tear in her left knee, pt reports at that time, was a partial tear, no surgical intervention. PT-OP-C Subjective Start: 01/09/24 17:33 Freq: Status: Active Protocol: Document 02/12/24 16:28 NB (Rec: 02/12/24 17:22 [facility] [place] [id number]) OP-PT Subjective Patient Comments Patient Comments Melvi reports her L knee had been okay until she moved into new place and had to do a lot of up and downs. Current L knee pain is 2/10. It helps to rest it instead of putting body weight into it, like propping it on a chair, and after standing she stands more on R leg to give L a break. She found the compression brace yesterday and tried it for a few minutes but it didn' t seem to help with walking so she took it off. She moved and going uphill hurts more, and she added a cushion under knee for using low cupboards. She wasn't able to keep up with doing exercises with moving into the house. PT-OP-F Manual Assessment Start: 01/09/24 17:33 Freq: Status: Active Protocol: Document 01/09/24 16:10 DCW (Rec: 01/10/24 08:39 DCW [id number]) Manual Assessments Joint Mobility Assessment Joint Mobility Assessment Point-specific pain along anteriormedial left knee joint line. Increased stiffness in left hip PT-OP-L Special Tests Start: 01/09/24 17:33 Freq: Status: Active Protocol: Document 01/09/24 16:10 DCW (Rec: 01/10/24 08:39 DCW [id number]) Special Tests Lumbar Spine Special Tests A-P Shearing Test Results Positive Hip Special Tests Lani's Test Test Results Positive left Scour Test Test Results Negative Piriformis Test Results Mild tightness left JESUS Test Results Negative Knee Special Tests Varus- 25 Degrees Test Results Negative Valgus- 25 Degrees Test Results Negative Posterior Draw Test Results Negative Patellar Grind Test Test Results Negative Patella Tap Test Results Positive left Blanco Test Test Results Negative Bounce Home Test Results Negative Apprehension Test Test Results Negative Apley's Compression Test Results Negative Anterior Draw Test Results Negative PT-OP-M Strength Start: 01/09/24 17:33 Freq: Status: Active Protocol: Document 01/09/24 16:10 DCW (Rec: 01/10/24 08:39 DCW [id number]) Hip Strength Hip Manual Muscle Testing Right Flexion (L2) 4+ Good+ Abduction 4+ Good+ Adduction 4+ Good+ External Rotation 4 Good Internal Rotation 4- Good- Left Flexion (L2) 4+ Good+ Abduction 4+ Good+ Adduction 4+ Good+ External Rotation 4 Good Internal Rotation 4- Good- Knee Strength Knee Manual Muscle Testing Right Flexion (S2) 4+ Good+ Extension (L3) 4+ Good+ Left Flexion (S2) 4+ Good+ Extension (L3) 4+ Good+ PT-OP-Q Treatments Start: 01/09/24 17:33 Freq: Status: Active Protocol: Document 02/12/24 16:28 NBM (Rec: 02/12/24 17:22 NBM [id number]) Therapeutic Exercises Supine Exercises Single KtC Supine Exercise Name Single KtC Side left Reps/Minutes 30s Piriformis Supine Exercise Name Manual figure-4 Side left Reps/Minutes 30s Bridging Supine Exercise Name Bridging /c adductor ball squeeze Side bilateral Reps/Minutes 2x15 SLR Supine Exercise Name SLR /c ER Side left Resistance 5 Reps/Minutes 2x10 Hip Flexor Supine Exercise Name Hip Flexor stretch Side left Reps/Minutes 30s Sidelying Exercises Hip Adduction Sidelying Exercise Name Hip Adduction - SLR Side left Resistance 5# Reps/Minutes 2x15 Clamshell Sidelying Exercise Name Clamshell Side left Reps/Minutes x10 Standing Exercises ER/IR Standing Exercise Name Half-kneel on stool Side left Resistance Lv 3 Reps/Minutes x15 each Comments pain-free TKE Standing Exercise Name TKE - 3-way (fwd, lat) Side left Resistance Lv 3 Reps/Minutes 10 x 2 breath hold (~5s) Other Exercises Sliders Other Exercise Name Sliders - Abduction, Extension Side bilateral Reps/Minutes x10 ea, abduction fatigueing Comments cues for L>R neutral foot position PT-OP-T Assessment and Plan Start: 01/09/24 17:33 Freq: Status: Active Protocol: Document 02/12/24 16:28 [facility] [place] (Rec: 02/12/24 17:22 [facility] [place] [id number]) Physical Therapy Assessment Goals Two Impairment Pt experiences increased left knee pain ascending/descending slope Proposal Manager Writer Goal (LTG) PT to exhibit ability to ambulate up and down hills without increased knee pain over two weeks in order to return to prior activity levels. LTG Duration 03/10/24 One Impairment Pt does not have an appropriate home exercise program Short Term Goal (STG) Pt to be independent and compliant with an appropriate HEP STG Duration 02/08/24 Assessment Summary Assessment Melvi presents with L knee pain 2/10 which improves to 1/ 10 end of session. She requires inital cueing for neutral foot position with sliders with hip abduction and extension. No activities today increase baseline symptoms Physical Therapy Plan Frequency and Duration Frequency of Treatment 2x/Week Plan of Care Start Date 01/09/24 Plan of Care End Date 03/10/24 Therapeutic Interventions Therapeutic Interventions Home Exercise Program,Joint Mobilizations,Manual Therapy, Neuromuscular Re-education, Patient/Caregiver Education, Self-Care/Home Management,Soft Tissue Mobilization,Taping, Therapeutic Activities, Therapeutic Exercises Modalities Cold Pack/Ice Massage,Electric Stimulation,Hot Packs, Ultrasound Next Visit Focus/Plan Next Note Type Treatment Note Next Visit Plan Consider issued HEP HO. POC: Hip/knee strengthening, joint mobs, stretching
--- NOTE | 2024-02-19 16:26 | PT.OTN ---
Current Diagnoses Pain in left knee (02/19/24) Pain in unspecified knee (02/19/24) Stiffness of left hip, not elsewhere classified (02/19/24) Physical Therapy Treatment Note PT-OP-A Visit Information Start: 01/09/24 17:33 Freq: Status: Active Protocol: Document 02/19/24 14:30 TS (Rec: 02/19/24 16:26 TS [id number]) Out-Patient Physical Therapy Visit Information Visit Information Visit Type Treatment Note Visit Start Time 14:34 Visit Stop Time 15:15 Visit Number 6 Number of REFRIGERATION REPAIR SUPERVISOR Visits 3 PT-OP-B Current Condition Start: 01/09/24 17:33 Freq: Status: Active Protocol: Document 01/09/24 16:10 DCW (Rec: 01/10/24 08:39 DCW [id number]) Current Condition History of Current Condition Onset Date Three month history Current Complaints Left knee pain History of Current Condition Pt is a 23 year old female presenting with a three month history of left knee pain. Pain located mainly medially. Pain present with walking on an incline/decline or stairs. Experiences occasional popping , popping is painful sometimes . Worse if she is carrying something with increased weight. Does note occasional feeling that her knee is going to buckle. Does have a past history (around age 15) of ligamental tear in her left knee, pt reports at that time, was a partial tear, no surgical intervention. PT-OP-C Subjective Start: 01/09/24 17:33 Freq: Status: Active Protocol: Document 02/19/24 14:30 TS (Rec: 02/19/24 16:26 TS [id number]) OP-PT Subjective Patient Comments Patient Comments Pt reports pain in L knee this morning, feels better this afternoon. PT-OP-F Manual Assessment Start: 01/09/24 17:33 Freq: Status: Active Protocol: Document 01/09/24 16:10 DCW (Rec: 01/10/24 08:39 DCW [id number]) Manual Assessments Joint Mobility Assessment Joint Mobility Assessment Point-specific pain along anteriormedial left knee joint line. Increased stiffness in left hip PT-OP-L Special Tests Start: 01/09/24 17:33 Freq: Status: Active Protocol: Document 01/09/24 16:10 DCW (Rec: 01/10/24 08:39 DCW [id number]) Special Tests Lumbar Spine Special Tests A-P Shearing Test Results Positive Hip Special Tests Lani's Test Test Results Positive left Scour Test Test Results Negative Piriformis Test Results Mild tightness left JESUS Test Results Negative Knee Special Tests Varus- 25 Degrees Test Results Negative Valgus- 25 Degrees Test Results Negative Posterior Draw Test Results Negative Patellar Grind Test Test Results Negative Patella Tap Test Results Positive left Blanco Test Test Results Negative Bounce Home Test Results Negative Apprehension Test Test Results Negative Apley's Compression Test Results Negative Anterior Draw Test Results Negative PT-OP-M Strength Start: 01/09/24 17:33 Freq: Status: Active Protocol: Document 01/09/24 16:10 DCW (Rec: 01/10/24 08:39 DCW [id number]) Hip Strength Hip Manual Muscle Testing Right Flexion (L2) 4+ Good+ Abduction 4+ Good+ Adduction 4+ Good+ External Rotation 4 Good Internal Rotation 4- Good- Left Flexion (L2) 4+ Good+ Abduction 4+ Good+ Adduction 4+ Good+ External Rotation 4 Good Internal Rotation 4- Good- Knee Strength Knee Manual Muscle Testing Right Flexion (S2) 4+ Good+ Extension (L3) 4+ Good+ Left Flexion (S2) 4+ Good+ Extension (L3) 4+ Good+ PT-OP-Q Treatments Start: 01/09/24 17:33 Freq: Status: Active Protocol: Document 02/19/24 14:30 TS (Rec: 02/19/24 16:26 TS [id number]) Therapeutic Exercises Supine Exercises Single KtC Supine Exercise Name Single KtC Side bilateral Reps/Minutes 30s Piriformis Supine Exercise Name figure 4 Side left Reps/Minutes 2x30s Comments feels good stretch SLR Supine Exercise Name SLR /c ER Side left Resistance 5 Reps/Minutes 2x10 Sidelying Exercises Clamshell Sidelying Exercise Name Clamshell Side left Resistance LVL 4 Reps/Minutes 2x10 Standing Exercises ER/IR Standing Exercise Name Half-kneel on stool Side left Resistance Lv 4 Reps/Minutes x15 each Comments pain-free Other Exercises BOSU Lunge Other Exercise Name BOSU Lunge Side bilateral Equipment Used Blue BOSU Reps/Minutes x15 Manual Therapy Treatment Joint Mobilizations Knee Joint L Knee Direction P<->A Grade III Body Position Hooklying PT-OP-T Assessment and Plan Start: 01/09/24 17:33 Freq: Status: Active Protocol: Document 02/19/24 14:30 TS (Rec: 02/19/24 16:26 TS [id number]) Physical Therapy Assessment Goals Two Impairment Pt experiences increased left knee pain ascending/descending slope Project Manager/Team Coach Goal (LTG) PT to exhibit ability to ambulate up and down hills without increased knee pain over two weeks in order to return to prior activity levels. LTG Duration 03/10/24 One Impairment Pt does not have an appropriate home exercise program Short Term Goal (STG) Pt to be independent and compliant with an appropriate HEP STG Duration 02/08/24 Assessment Summary Assessment Pt reports no pain during session today. Educated pt on the benefits of doing her HEP. Continues to require cues for exercises. Physical Therapy Plan Next Visit Focus/Plan Next Note Type Treatment Note Next Visit Plan Progress SL exercise and continue plyo ex. Assess pain in L knee. POC: Hip/knee strengthening, joint mobs, stretching
--- NOTE | 2024-02-26 17:21 | PT.OTN ---
Current Diagnoses Pain in left knee (02/26/24) Pain in unspecified knee (02/26/24) Stiffness of left hip, not elsewhere classified (02/26/24) Physical Therapy Treatment Note PT-OP-A Visit Information Start: 01/09/24 17:33 Freq: Status: Active Protocol: Document 02/26/24 16:27 NBM (Rec: 02/26/24 17:20 [facility] [id number]) Out-Patient Physical Therapy Visit Information Visit Information Visit Type Treatment Note Visit Start Time 16:25 Visit Stop Time 17:05 Visit Number 7 Number of ELECTRIC SEALING MACHINE OPERATOR Visits 4 Evaluation Information Evaluation Date 01/09/24 PT-OP-B Current Condition Start: 01/09/24 17:33 Freq: Status: Active Protocol: Document 01/09/24 16:10 DCW (Rec: 01/10/24 08:39 DCW [id number]) Current Condition History of Current Condition Onset Date Three month history Current Complaints Left knee pain History of Current Condition Pt is a 23 year old female presenting with a three month history of left knee pain. Pain located mainly medially. Pain present with walking on an incline/decline or stairs. Experiences occasional popping , popping is painful sometimes . Worse if she is carrying something with increased weight. Does note occasional feeling that her knee is going to buckle. Does have a past history (around age 15) of ligamental tear in her left knee, pt reports at that time, was a partial tear, no surgical intervention. PT-OP-C Subjective Start: 01/09/24 17:33 Freq: Status: Active Protocol: Document 02/26/24 16:27 NBM (Rec: 02/26/24 17:20 [facility] [id number]) OP-PT Subjective Patient Comments Patient Comments Melvi reports no L knee pain currently or when doing exercises. Pain happens and increases with kneeling down or with going up/down steps. Sometimes it pops when picking up child and she's unsure if she's doing it right. PT-OP-F Manual Assessment Start: 01/09/24 17:33 Freq: Status: Active Protocol: Document 01/09/24 16:10 DCW (Rec: 01/10/24 08:39 DCW [id number]) Manual Assessments Joint Mobility Assessment Joint Mobility Assessment Point-specific pain along anteriormedial left knee joint line. Increased stiffness in left hip PT-OP-L Special Tests Start: 01/09/24 17:33 Freq: Status: Active Protocol: Document 01/09/24 16:10 DCW (Rec: 01/10/24 08:39 DCW [id number]) Special Tests Lumbar Spine Special Tests A-P Shearing Test Results Positive Hip Special Tests Lani's Test Test Results Positive left Scour Test Test Results Negative Piriformis Test Results Mild tightness left JESUS Test Results Negative Knee Special Tests Varus- 25 Degrees Test Results Negative Valgus- 25 Degrees Test Results Negative Posterior Draw Test Results Negative Patellar Grind Test Test Results Negative Patella Tap Test Results Positive left Blanco Test Test Results Negative Bounce Home Test Results Negative Apprehension Test Test Results Negative Apley's Compression Test Results Negative Anterior Draw Test Results Negative PT-OP-M Strength Start: 01/09/24 17:33 Freq: Status: Active Protocol: Document 01/09/24 16:10 DCW (Rec: 01/10/24 08:39 DCW [id number]) Hip Strength Hip Manual Muscle Testing Right Flexion (L2) 4+ Good+ Abduction 4+ Good+ Adduction 4+ Good+ External Rotation 4 Good Internal Rotation 4- Good- Left Flexion (L2) 4+ Good+ Abduction 4+ Good+ Adduction 4+ Good+ External Rotation 4 Good Internal Rotation 4- Good- Knee Strength Knee Manual Muscle Testing Right Flexion (S2) 4+ Good+ Extension (L3) 4+ Good+ Left Flexion (S2) 4+ Good+ Extension (L3) 4+ Good+ PT-OP-Q Treatments Start: 01/09/24 17:33 Freq: Status: Active Protocol: Document 02/26/24 16:27 NBM (Rec: 02/26/24 17:20 NBM [id number]) Therapeutic Exercises Standing Exercises ER/IR Standing Exercise Name Half-kneel on stool Side left Resistance Lv 3 Reps/Minutes x15 each Comments pain-free TKE Standing Exercise Name TKE - 3-way (fwd, lat) Side left Resistance Lv 4 Equipment Used at training stairs Reps/Minutes x12 ea breath hold (~5s) Comments pain free. Other Exercises Sliders Other Exercise Name Sliders - Abduction, Extension , flexion Side bilateral Reps/Minutes x10 ea, abduction fatigueing Comments L neutral foot positioning challenging Foam Other Exercise Name Stride-length tandem stance on foam Side right Reps/Minutes x30s ea Comments pain-free, cue for L neutral foot position BOSU Lunge Other Exercise Name BOSU Lunge Side bilateral Equipment Used Blue BOSU Reps/Minutes x15 Comments cue for knee over 2nd toe Therapeutic Activity Therapeutic Activity lifting mechanics Name simulating picking up 20# child Reps/Minutes x5 Comments on blue mat. alternating picking up from 1/ 2 kneel with focus on LE alignment and gluteal activation. Manual Therapy Treatment Consent Patient gave verbal consent for manual Yes treatment Joint Mobilizations Patella Joint L Patella Direction Inf<->Sup, Med<->Lat Grade II Body Position Sitting Comments w/ foot supported in knee extension. Pain-free PT-OP-T Assessment and Plan Start: 01/09/24 17:33 Freq: Status: Active Protocol: Document 02/26/24 16:27 NBM (Rec: 02/26/24 17:20 NBM [id number]) Physical Therapy Assessment Goals Two Impairment Pt experiences increased left knee pain ascending/descending slope Skilled Nursing Goal (LTG) PT to exhibit ability to ambulate up and down hills without increased knee pain over two weeks in order to return to prior activity levels. 02/26/24: Pt notices she can kneel down as much because the pressure causes pain in knee. LTG Duration 03/10/24 One Impairment Pt does not have an appropriate home exercise program Short Term Goal (STG) Pt to be independent and compliant with an appropriate HEP 02/26/24: Pt reports doing home ex's. STG Duration 02/08/24 Assessment Summary Assessment Treatment focus on lifting mechanics and LE strengthening with VMO m. focus and occasional cueing for lower extremity alignment. Melvi demonstrates L knee instability most with deep knee flexion and is educated and cued for foot positioning and gluteal activation for LE alignment when transitioning from 1/2 kneeling to standing with child. Physical Therapy Plan Frequency and Duration Frequency of Treatment 2x/Week Plan of Care Start Date 01/09/24 Plan of Care End Date 03/10/24 Therapeutic Interventions Therapeutic Interventions Home Exercise Program,Joint Mobilizations,Manual Therapy, Neuromuscular Re-education, Patient/Caregiver Education, Self-Care/Home Management,Soft Tissue Mobilization,Taping, Therapeutic Activities, Therapeutic Exercises Modalities Cold Pack/Ice Massage,Electric Stimulation,Hot Packs, Ultrasound Next Visit Focus/Plan Next Note Type Treatment Note Next Visit Plan Progress SL exercise and continue plyo ex. Assess pain in L knee. POC: Hip/knee strengthening, joint mobs, stretching
--- NOTE | 2024-03-11 17:51 | PT.OTN ---
Current Diagnoses Pain in left knee (03/11/24) Pain in unspecified knee (03/11/24) Stiffness of left hip, not elsewhere classified (03/11/24) Physical Therapy Treatment Note PT-OP-A Visit Information Start: 01/09/24 17:33 Freq: Status: Active Protocol: Document 03/11/24 17:00 DCW (Rec: 03/11/24 17:50 DCW [id number]) Out-Patient Physical Therapy Visit Information Visit Information Visit Type Progress Note Visit Start Time 17:00 Visit Stop Time 17:45 Visit Number 8 Number of PROFESSOR OF ART Visits 0 Evaluation Information Evaluation Date 01/09/24 PT-OP-B Current Condition Start: 01/09/24 17:33 Freq: Status: Active Protocol: Document 01/09/24 16:10 DCW (Rec: 01/10/24 08:39 DCW [id number]) Current Condition History of Current Condition Onset Date Three month history Current Complaints Left knee pain History of Current Condition Pt is a 23 year old female presenting with a three month history of left knee pain. Pain located mainly medially. Pain present with walking on an incline/decline or stairs. Experiences occasional popping , popping is painful sometimes . Worse if she is carrying something with increased weight. Does note occasional feeling that her knee is going to buckle. Does have a past history (around age 15) of ligamental tear in her left knee, pt reports at that time, was a partial tear, no surgical intervention. PT-OP-C Subjective Start: 01/09/24 17:33 Freq: Status: Active Protocol: Document 03/11/24 17:00 DCW (Rec: 03/11/24 17:50 DCW [id number]) OP-PT Subjective Patient Comments Patient Comments Pt notes her knee is feeling a lot better, but still bothers her occasionally. Struggles with unevens surfaces. PT-OP-F Manual Assessment Start: 01/09/24 17:33 Freq: Status: Active Protocol: Document 03/11/24 17:00 DCW (Rec: 03/11/24 17:10 DCW [id number]) Manual Assessments Joint Mobility Assessment Joint Mobility Assessment Mild point-specific pain along anteriormedial left knee joint line. Increased stiffness in left hip PT-OP-L Special Tests Start: 01/09/24 17:33 Freq: Status: Active Protocol: Document 03/11/24 17:00 DCW (Rec: 03/11/24 17:10 DCW [id number]) Special Tests Lumbar Spine Special Tests A-P Shearing Test Results Negative Hip Special Tests Scour Test Test Results Negative Piriformis Test Results Mild tightness left JESUS Test Results Negative Knee Special Tests Varus- 25 Degrees Test Results Negative Valgus- 25 Degrees Test Results Negative Patella Tap Test Results Positive left Blanco Test Test Results Negative Bounce Home Test Results Negative Apprehension Test Test Results Negative Anterior Draw Test Results Negative PT-OP-M Strength Start: 01/09/24 17:33 Freq: Status: Active Protocol: Document 01/09/24 16:10 DCW (Rec: 01/10/24 08:39 DCW [id number]) Hip Strength Hip Manual Muscle Testing Right Flexion (L2) 4+ Good+ Abduction 4+ Good+ Adduction 4+ Good+ External Rotation 4 Good Internal Rotation 4- Good- Left Flexion (L2) 4+ Good+ Abduction 4+ Good+ Adduction 4+ Good+ External Rotation 4 Good Internal Rotation 4- Good- Knee Strength Knee Manual Muscle Testing Right Flexion (S2) 4+ Good+ Extension (L3) 4+ Good+ Left Flexion (S2) 4+ Good+ Extension (L3) 4+ Good+ PT-OP-Q Treatments Start: 01/09/24 17:33 Freq: Status: Active Protocol: Document 03/11/24 17:00 DCW (Rec: 03/11/24 17:50 [facility] [id number]) Gym Equipment Shuttle Recovery Plyometric Details Plyometric hopping Resistance 25# Reps/Time VCs for knee alignment, bracing Shuttle Balance Red Details Lateral weight shift /c balloon Manual Therapy Treatment Consent Patient gave verbal consent for manual Yes treatment Soft Tissue Mobilization Left Lumbar Body Location Left Lumbar paraspinals, posterior hip Mobilization Type Strumming,Sustained Pressure Intensity/Depth Moderate Comments Prone, sidelying Manual Traction Hip Details Left hip short-axis Body Position Sidelying PT-OP-T Assessment and Plan Start: 01/09/24 17:33 Freq: Status: Active Protocol: Document 03/11/24 17:00 DCW (Rec: 03/11/24 17:50 DCW [id number]) Physical Therapy Assessment Impairments Impairments Functional Activities, Functional Mobility,Pain, Strength,Tone Goals Two Impairment Pt experiences increased left knee pain ascending/descending slope Water Resources Project Manager Goal (LTG) Pt to exhibit ability to ambulate up and down hills without increased knee pain over two weeks in order to return to prior activity levels. 02/26/24: Pt notices she can't kneel down as much because the pressure causes pain in knee. LTG Duration 05/11/24 One Impairment Pt does not have an appropriate home exercise program Short Term Goal (STG) Pt to be independent and compliant with an appropriate HEP 02/26/24: Pt reports doing home ex's. STG Duration Met Assessment Summary Assessment Pt showing some good improvements with knee pain, increased tolerance to functional mobility, however still struggling with decreased left hip mobility and occasional low back pain with lifting. Spent some time today discussing lifting techniques/body mechanics and importance of bracing abdominals. Stretched QL today , which helped decrease raised left hip. Continue to work on flexibility, joint mobilizations, core strengthening, and functional mobility. Physical Therapy Plan Frequency and Duration Frequency of Treatment 2x/Week Plan of Care Start Date 03/11/24 Plan of Care End Date 05/11/24 Therapeutic Interventions Therapeutic Interventions Home Exercise Program,Joint Mobilizations,Manual Therapy, Neuromuscular Re-education, Patient/Caregiver Education, Self-Care/Home Management,Soft Tissue Mobilization,Taping, Therapeutic Activities, Therapeutic Exercises Modalities Cold Pack/Ice Massage,Electric Stimulation,Hot Packs, Ultrasound Next Visit Focus/Plan Next Note Type Treatment Note Next Visit Plan Progress SL exercise and continue plyo ex. Assess pain in L knee. POC: Hip/knee strengthening, joint mobs, stretching
--- NOTE | 2024-03-11 17:51 | PT.OPPOC ---
Physical, Occupational & Speech Therapy At [facility] Current Diagnoses Pain in left knee (03/11/24) Pain in unspecified knee (03/11/24) Stiffness of left hip, not elsewhere classified (03/11/24) Visit Care Team Role Provider Type Tesha Carbajal MD Attending Provider Physician Family Provider Primary Care Provider Referring Provider Specialty: Family Practice Address: [address] [place] [address], [place], [place], [facility] Email: [email or web address] Plan Of Care PT-OP-B Current Condition Start: 01/09/24 17:33 Freq: Status: Active Protocol: Document 01/09/24 16:10 DCW (Rec: 01/10/24 08:39 DCW [id number]) Current Condition History of Current Condition Onset Date Three month history Current Complaints Left knee pain History of Current Condition Pt is a 23 year old female presenting with a three month history of left knee pain. Pain located mainly medially. Pain present with walking on an incline/decline or stairs. Experiences occasional popping , popping is painful sometimes . Worse if she is carrying something with increased weight. Does note occasional feeling that her knee is going to buckle. Does have a past history (around age 15) of ligamental tear in her left knee, pt reports at that time, was a partial tear, no surgical intervention. PT-OP-T Assessment and Plan Start: 01/09/24 17:33 Freq: Status: Active Protocol: Document 03/11/24 17:00 DCW (Rec: 03/11/24 17:50 DCW [id number]) Physical Therapy Assessment Impairments Impairments Functional Activities, Functional Mobility,Pain, Strength,Tone Goals Two Impairment Pt experiences increased left knee pain ascending/descending slope [facility] Goal (LTG) Pt to exhibit ability to ambulate up and down hills without increased knee pain over two weeks in order to return to prior activity levels. 02/26/24: Pt notices she can't kneel down as much because the pressure causes pain in knee. LTG Duration 05/11/24 One Impairment Pt does not have an appropriate home exercise program Short Term Goal (STG) Pt to be independent and compliant with an appropriate HEP 02/26/24: Pt reports doing home ex's. STG Duration Met Assessment Summary Assessment Pt showing some good improvements with knee pain, increased tolerance to functional mobility, however still struggling with decreased left hip mobility and occasional low back pain with lifting. Spent some time today discussing lifting techniques/body mechanics and importance of bracing abdominals. Stretched QL today , which helped decrease raised left hip. Continue to work on flexibility, joint mobilizations, core strengthening, and functional mobility. Physical Therapy Plan Frequency and Duration Frequency of Treatment 2x/Week Plan of Care Start Date 03/11/24 Plan of Care End Date 05/11/24 Therapeutic Interventions Therapeutic Interventions Home Exercise Program,Joint Mobilizations,Manual Therapy, Neuromuscular Re-education, Patient/Caregiver Education, Self-Care/Home Management,Soft Tissue Mobilization,Taping, Therapeutic Activities, Therapeutic Exercises Modalities Cold Pack/Ice Massage,Electric Stimulation,Hot Packs, Ultrasound Next Visit Focus/Plan Next Note Type Treatment Note Next Visit Plan Progress SL exercise and continue plyo ex. Assess pain in L knee. POC: Hip/knee strengthening, joint mobs, stretching Plan of Care Dates Plan of Care Start Date 03/11/24 Plan of Care End Date 05/11/24 Electronically Signed by: David Petty, PT 03/11/24 8347 If you are in agreement with this Plan of Care, please return a signed and dated copy. I have reviewed this Plan of Care and certify that the skilled therapy services above are required to meet the patient?s needs. Physician Signature Date Printed Name and Credentials Clinical Instructor Signature Printed Name and Credentials
--- NOTE | 2024-03-16 17:51 | PT.OTN ---
Current Diagnoses Pain in left knee (03/16/24) Pain in unspecified knee (03/16/24) Stiffness of left hip, not elsewhere classified (03/16/24) Physical Therapy Treatment Note PT-OP-A Visit Information Start: 01/09/24 17:33 Freq: Status: Active Protocol: Document 03/16/24 17:00 DCW (Rec: 03/16/24 17:50 DCW [id number]) Out-Patient Physical Therapy Visit Information Visit Information Visit Type Treatment Note Visit Start Time 17:00 Visit Stop Time 17:45 Visit Number 9 Number of SITE INSPECTOR Visits 0 Evaluation Information Evaluation Date 01/09/24 PT-OP-B Current Condition Start: 01/09/24 17:33 Freq: Status: Active Protocol: Document 01/09/24 16:10 DCW (Rec: 01/10/24 08:39 DCW [id number]) Current Condition History of Current Condition Onset Date Three month history Current Complaints Left knee pain History of Current Condition Pt is a 23 year old female presenting with a three month history of left knee pain. Pain located mainly medially. Pain present with walking on an incline/decline or stairs. Experiences occasional popping , popping is painful sometimes . Worse if she is carrying something with increased weight. Does note occasional feeling that her knee is going to buckle. Does have a past history (around age 15) of ligamental tear in her left knee, pt reports at that time, was a partial tear, no surgical intervention. PT-OP-C Subjective Start: 01/09/24 17:33 Freq: Status: Active Protocol: Document 03/16/24 17:00 DCW (Rec: 03/16/24 17:50 DCW [id number]) OP-PT Subjective Patient Comments Patient Comments Pt reports her hip felt better following last visit. PT-OP-F Manual Assessment Start: 01/09/24 17:33 Freq: Status: Active Protocol: Document 03/11/24 17:00 DCW (Rec: 03/11/24 17:10 DCW [id number]) Manual Assessments Joint Mobility Assessment Joint Mobility Assessment Mild point-specific pain along anteriormedial left knee joint line. Increased stiffness in left hip PT-OP-L Special Tests Start: 01/09/24 17:33 Freq: Status: Active Protocol: Document 03/11/24 17:00 DCW (Rec: 03/11/24 17:10 DCW [id number]) Special Tests Lumbar Spine Special Tests A-P Shearing Test Results Negative Hip Special Tests Scour Test Test Results Negative Piriformis Test Results Mild tightness left JESUS Test Results Negative Knee Special Tests Varus- 25 Degrees Test Results Negative Valgus- 25 Degrees Test Results Negative Patella Tap Test Results Positive left Blanco Test Test Results Negative Bounce Home Test Results Negative Apprehension Test Test Results Negative Anterior Draw Test Results Negative PT-OP-M Strength Start: 01/09/24 17:33 Freq: Status: Active Protocol: Document 01/09/24 16:10 DCW (Rec: 01/10/24 08:39 DCW [id number]) Hip Strength Hip Manual Muscle Testing Right Flexion (L2) 4+ Good+ Abduction 4+ Good+ Adduction 4+ Good+ External Rotation 4 Good Internal Rotation 4- Good- Left Flexion (L2) 4+ Good+ Abduction 4+ Good+ Adduction 4+ Good+ External Rotation 4 Good Internal Rotation 4- Good- Knee Strength Knee Manual Muscle Testing Right Flexion (S2) 4+ Good+ Extension (L3) 4+ Good+ Left Flexion (S2) 4+ Good+ Extension (L3) 4+ Good+ PT-OP-Q Treatments Start: 01/09/24 17:33 Freq: Status: Active Protocol: Document 03/16/24 17:00 DCW (Rec: 03/16/24 17:50 OKW [id number]) Gym Equipment Shuttle Recovery Plyometric Details Plyometric hopping Resistance 37#, 25# Reps/Time DL 37#, SL 25# Shuttle Balance Red Details Lateral weight shift /c balloon Manual Therapy Treatment Consent Patient gave verbal consent for manual Yes treatment Soft Tissue Mobilization Left Lumbar Body Location Left Lumbar paraspinals, posterior hip Mobilization Type Strumming,Sustained Pressure Intensity/Depth Moderate Comments Prone, sidelying Joint Mobilizations Knee Joint L Knee Direction P<->A Grade III Body Position Hooklying Manual Traction Hip Details Left hip short-axis Body Position Sidelying PT-OP-T Assessment and Plan Start: 01/09/24 17:33 Freq: Status: Active Protocol: Document 03/16/24 17:00 DCW (Rec: 03/16/24 17:50 DCW [id number]) Physical Therapy Assessment Impairments Impairments Functional Activities, Functional Mobility,Pain, Strength,Tone Goals Two Impairment Pt experiences increased left knee pain ascending/descending slope Hull Builder Goal (LTG) Pt to exhibit ability to ambulate up and down hills without increased knee pain over two weeks in order to return to prior activity levels. 02/26/24: Pt notices she can't kneel down as much because the pressure causes pain in knee. LTG Duration 05/11/24 One Impairment Pt does not have an appropriate home exercise program Short Term Goal (STG) Pt to be independent and compliant with an appropriate HEP 02/26/24: Pt reports doing home ex's. STG Duration Met Assessment Summary Assessment Pt notes pain relief with short-axis traction and STM. Continues to do well, but still experiencing lingering pain with uneven surfaces and downhill. Physical Therapy Plan Frequency and Duration Frequency of Treatment 2x/Week Plan of Care Start Date 03/11/24 Plan of Care End Date 05/11/24 Therapeutic Interventions Therapeutic Interventions Home Exercise Program,Joint Mobilizations,Manual Therapy, Neuromuscular Re-education, Patient/Caregiver Education, Self-Care/Home Management,Soft Tissue Mobilization,Taping, Therapeutic Activities, Therapeutic Exercises Modalities Cold Pack/Ice Massage,Electric Stimulation,Hot Packs, Ultrasound Next Visit Focus/Plan Next Note Type Treatment Note Next Visit Plan Progress SL exercise and continue plyo ex. Assess pain in L knee. POC: Hip/knee strengthening, joint mobs, stretching
--- NOTE | 2024-03-18 17:46 | PT.OTN ---
Current Diagnoses Pain in left knee (03/18/24) Pain in unspecified knee (03/18/24) Stiffness of left hip, not elsewhere classified (03/18/24) Physical Therapy Treatment Note PT-OP-A Visit Information Start: 01/09/24 17:33 Freq: Status: Active Protocol: Document 03/18/24 17:00 DCW (Rec: 03/18/24 17:46 DCW [id number]) Out-Patient Physical Therapy Visit Information Visit Information Visit Type Treatment Note Visit Start Time 17:00 Visit Stop Time 17:45 Visit Number 10 Number of SIDE LASTER STAPLE Visits 0 Evaluation Information Evaluation Date 01/09/24 PT-OP-B Current Condition Start: 01/09/24 17:33 Freq: Status: Active Protocol: Document 01/09/24 16:10 DCW (Rec: 01/10/24 08:39 DCW [id number]) Current Condition History of Current Condition Onset Date Three month history Current Complaints Left knee pain History of Current Condition Pt is a 23 year old female presenting with a three month history of left knee pain. Pain located mainly medially. Pain present with walking on an incline/decline or stairs. Experiences occasional popping , popping is painful sometimes . Worse if she is carrying something with increased weight. Does note occasional feeling that her knee is going to buckle. Does have a past history (around age 15) of ligamental tear in her left knee, pt reports at that time, was a partial tear, no surgical intervention. PT-OP-C Subjective Start: 01/09/24 17:33 Freq: Status: Active Protocol: Document 03/18/24 17:00 DCW (Rec: 03/18/24 17:46 DCW [id number]) OP-PT Subjective Patient Comments Patient Comments Pt admits she has some back pain today, noticing it happening more frequently, especially when carrying her son. Knee continues to be sore on uneven surfaces. PT-OP-F Manual Assessment Start: 01/09/24 17:33 Freq: Status: Active Protocol: Document 03/11/24 17:00 DCW (Rec: 03/11/24 17:10 DCW [id number]) Manual Assessments Joint Mobility Assessment Joint Mobility Assessment Mild point-specific pain along anteriormedial left knee joint line. Increased stiffness in left hip PT-OP-L Special Tests Start: 01/09/24 17:33 Freq: Status: Active Protocol: Document 03/11/24 17:00 DCW (Rec: 03/11/24 17:10 DCW [id number]) Special Tests Lumbar Spine Special Tests A-P Shearing Test Results Negative Hip Special Tests Scour Test Test Results Negative Piriformis Test Results Mild tightness left JESUS Test Results Negative Knee Special Tests Varus- 25 Degrees Test Results Negative Valgus- 25 Degrees Test Results Negative Patella Tap Test Results Positive left Blanco Test Test Results Negative Bounce Home Test Results Negative Apprehension Test Test Results Negative Anterior Draw Test Results Negative PT-OP-M Strength Start: 01/09/24 17:33 Freq: Status: Active Protocol: Document 01/09/24 16:10 DCW (Rec: 01/10/24 08:39 DCW [id number]) Hip Strength Hip Manual Muscle Testing Right Flexion (L2) 4+ Good+ Abduction 4+ Good+ Adduction 4+ Good+ External Rotation 4 Good Internal Rotation 4- Good- Left Flexion (L2) 4+ Good+ Abduction 4+ Good+ Adduction 4+ Good+ External Rotation 4 Good Internal Rotation 4- Good- Knee Strength Knee Manual Muscle Testing Right Flexion (S2) 4+ Good+ Extension (L3) 4+ Good+ Left Flexion (S2) 4+ Good+ Extension (L3) 4+ Good+ PT-OP-Q Treatments Start: 01/09/24 17:33 Freq: Status: Active Protocol: Document 03/18/24 17:00 DCW (Rec: 03/18/24 17:46 DCW [id number]) Gym Equipment Shuttle Balance Red Details Lateral weight shift /c balloon Manual Therapy Treatment Consent Patient gave verbal consent for manual Yes treatment Soft Tissue Mobilization Left Lumbar Body Location Left Lumbar paraspinals, posterior hip Mobilization Type Strumming,Sustained Pressure Intensity/Depth Moderate Comments Prone, sidelying Joint Mobilizations Knee Joint L Knee Direction P<->A Grade III Body Position Hooklying Manual Traction Hip Details Left hip short-axis Body Position Sidelying PT-OP-T Assessment and Plan Start: 01/09/24 17:33 Freq: Status: Active Protocol: Document 03/18/24 17:00 DCW (Rec: 03/18/24 17:46 DCW [id number]) Physical Therapy Assessment Impairments Impairments Functional Activities, Functional Mobility,Pain, Strength,Tone Goals Two Impairment Pt experiences increased left knee pain ascending/descending slope Tractor Driver Teamster Goal (LTG) Pt to exhibit ability to ambulate up and down hills without increased knee pain over two weeks in order to return to prior activity levels. 02/26/24: Pt notices she can't kneel down as much because the pressure causes pain in knee. LTG Duration 05/11/24 One Impairment Pt does not have an appropriate home exercise program Short Term Goal (STG) Pt to be independent and compliant with an appropriate HEP 02/26/24: Pt reports doing home ex's. STG Duration Met Assessment Summary Assessment Doing well with shuttle balance, able to maintain stability without increase in knee pain. Physical Therapy Plan Frequency and Duration Frequency of Treatment 2x/Week Plan of Care Start Date 03/11/24 Plan of Care End Date 05/11/24 Therapeutic Interventions Therapeutic Interventions Home Exercise Program,Joint Mobilizations,Manual Therapy, Neuromuscular Re-education, Patient/Caregiver Education, Self-Care/Home Management,Soft Tissue Mobilization,Taping, Therapeutic Activities, Therapeutic Exercises Modalities Cold Pack/Ice Massage,Electric Stimulation,Hot Packs, Ultrasound Next Visit Focus/Plan Next Note Type Treatment Note Next Visit Plan Progress SL exercise and continue plyo ex. Assess pain in L knee. POC: Hip/knee strengthening, joint mobs, stretching
--- NOTE | 2024-03-23 17:41 | PT.OTN ---
Current Diagnoses Pain in left knee (03/23/24) Pain in unspecified knee (03/23/24) Stiffness of left hip, not elsewhere classified (03/23/24) Physical Therapy Treatment Note PT-OP-A Visit Information Start: 01/09/24 17:33 Freq: Status: Active Protocol: Document 03/23/24 17:00 DCW (Rec: 03/23/24 17:41 DCW [id number]) Out-Patient Physical Therapy Visit Information Visit Information Visit Type Treatment Note Visit Start Time 17:00 Visit Stop Time 17:45 Visit Number 11 Number of SECOND FLOOR OPERATOR Visits 0 Evaluation Information Evaluation Date 01/09/24 PT-OP-B Current Condition Start: 01/09/24 17:33 Freq: Status: Active Protocol: Document 01/09/24 16:10 DCW (Rec: 01/10/24 08:39 DCW [id number]) Current Condition History of Current Condition Onset Date Three month history Current Complaints Left knee pain History of Current Condition Pt is a 23 year old female presenting with a three month history of left knee pain. Pain located mainly medially. Pain present with walking on an incline/decline or stairs. Experiences occasional popping , popping is painful sometimes . Worse if she is carrying something with increased weight. Does note occasional feeling that her knee is going to buckle. Does have a past history (around age 15) of ligamental tear in her left knee, pt reports at that time, was a partial tear, no surgical intervention. PT-OP-C Subjective Start: 01/09/24 17:33 Freq: Status: Active Protocol: Document 03/23/24 17:00 DCW (Rec: 03/23/24 17:41 DCW [id number]) OP-PT Subjective Patient Comments Patient Comments Pt reports she is able to be on her feet, walking around all day, without increased pain. Some continued pain kneeling on hard surfaces. PT-OP-F Manual Assessment Start: 01/09/24 17:33 Freq: Status: Active Protocol: Document 03/11/24 17:00 DCW (Rec: 03/11/24 17:10 DCW [id number]) Manual Assessments Joint Mobility Assessment Joint Mobility Assessment Mild point-specific pain along anteriormedial left knee joint line. Increased stiffness in left hip PT-OP-L Special Tests Start: 01/09/24 17:33 Freq: Status: Active Protocol: Document 03/11/24 17:00 DCW (Rec: 03/11/24 17:10 AKW [id number]) Special Tests Lumbar Spine Special Tests A-P Shearing Test Results Negative Hip Special Tests Scour Test Test Results Negative Piriformis Test Results Mild tightness left JESUS Test Results Negative Knee Special Tests Varus- 25 Degrees Test Results Negative Valgus- 25 Degrees Test Results Negative Patella Tap Test Results Positive left Blanco Test Test Results Negative Bounce Home Test Results Negative Apprehension Test Test Results Negative Anterior Draw Test Results Negative PT-OP-M Strength Start: 01/09/24 17:33 Freq: Status: Active Protocol: Document 01/09/24 16:10 DCW (Rec: 01/10/24 08:39 AKW [id number]) Hip Strength Hip Manual Muscle Testing Right Flexion (L2) 4+ Good+ Abduction 4+ Good+ Adduction 4+ Good+ External Rotation 4 Good Internal Rotation 4- Good- Left Flexion (L2) 4+ Good+ Abduction 4+ Good+ Adduction 4+ Good+ External Rotation 4 Good Internal Rotation 4- Good- Knee Strength Knee Manual Muscle Testing Right Flexion (S2) 4+ Good+ Extension (L3) 4+ Good+ Left Flexion (S2) 4+ Good+ Extension (L3) 4+ Good+ PT-OP-Q Treatments Start: 01/09/24 17:33 Freq: Status: Active Protocol: Document 03/23/24 17:00 DCW (Rec: 03/23/24 17:41 [facility] [id number]) Gym Equipment Shuttle Recovery Plyometric Details Plyometric hopping Resistance 37#, 25# Reps/Time DL 37#, SL 25# Shuttle Balance Red Details Lateral weight shift /c balloon Manual Therapy Treatment Consent Patient gave verbal consent for manual Yes treatment Soft Tissue Mobilization Left Lumbar Body Location Left Lumbar paraspinals, posterior hip Mobilization Type Strumming,Sustained Pressure Intensity/Depth Moderate Comments Prone, sidelying Joint Mobilizations Knee Joint L Knee Direction P<->A Grade III Body Position Hooklying PT-OP-T Assessment and Plan Start: 01/09/24 17:33 Freq: Status: Active Protocol: Document 03/23/24 17:00 DCW (Rec: 03/23/24 17:41 [facility] [id number]) Physical Therapy Assessment Impairments Impairments Functional Activities, Functional Mobility,Pain, Strength,Tone Goals Two Impairment Pt experiences increased left knee pain ascending/descending slope Knockout Man Goal (LTG) Pt to exhibit ability to ambulate up and down hills without increased knee pain over two weeks in order to return to prior activity levels. 02/26/24: Pt notices she can't kneel down as much because the pressure causes pain in knee. LTG Duration 05/11/24 One Impairment Pt does not have an appropriate home exercise program Short Term Goal (STG) Pt to be independent and compliant with an appropriate HEP 02/26/24: Pt reports doing home ex's. STG Duration Met Assessment Summary Assessment Pt doing very well overall, likely approaching discharge. Will plan to spend next visit reviewing HEP and working on continued improving flexibility of hip and low back. Physical Therapy Plan Frequency and Duration Frequency of Treatment 2x/Week Plan of Care Start Date 03/11/24 Plan of Care End Date 05/11/24 Therapeutic Interventions Therapeutic Interventions Home Exercise Program,Joint Mobilizations,Manual Therapy, Neuromuscular Re-education, Patient/Caregiver Education, Self-Care/Home Management,Soft Tissue Mobilization,Taping, Therapeutic Activities, Therapeutic Exercises Modalities Cold Pack/Ice Massage,Electric Stimulation,Hot Packs, Ultrasound Next Visit Focus/Plan Next Note Type Treatment Note Next Visit Plan POC: Hip/knee strengthening, joint mobs, stretching
--- NOTE | 2024-03-25 16:06 | PT.OTN ---
Current Diagnoses Pain in left knee (03/25/24) Pain in unspecified knee (03/25/24) Stiffness of left hip, not elsewhere classified (03/25/24) Physical Therapy Treatment Note PT-OP-A Visit Information Start: 01/09/24 17:33 Freq: Status: Active Protocol: Document 03/25/24 15:15 DCW (Rec: 03/25/24 16:06 DCW [id number]) Out-Patient Physical Therapy Visit Information Visit Information Visit Type Discharge Summary Visit Start Time 15:15 Visit Stop Time 16:00 Visit Number 12 Number of ORDER DESK CLERK Visits 0 Evaluation Information Evaluation Date 01/09/24 PT-OP-B Current Condition Start: 01/09/24 17:33 Freq: Status: Active Protocol: Document 01/09/24 16:10 DCW (Rec: 01/10/24 08:39 DCW [id number]) Current Condition History of Current Condition Onset Date Three month history Current Complaints Left knee pain History of Current Condition Pt is a 23 year old female presenting with a three month history of left knee pain. Pain located mainly medially. Pain present with walking on an incline/decline or stairs. Experiences occasional popping , popping is painful sometimes . Worse if she is carrying something with increased weight. Does note occasional feeling that her knee is going to buckle. Does have a past history (around age 15) of ligamental tear in her left knee, pt reports at that time, was a partial tear, no surgical intervention. PT-OP-C Subjective Start: 01/09/24 17:33 Freq: Status: Active Protocol: Document 03/25/24 15:15 DCW (Rec: 03/25/24 16:06 DCW [id number]) OP-PT Subjective Patient Comments Patient Comments Pt feeling good, would like to review HEP and go over some stretching for continued low back tightness, but overall very happy with current level of function PT-OP-F Manual Assessment Start: 01/09/24 17:33 Freq: Status: Active Protocol: Document 03/11/24 17:00 DCW (Rec: 03/11/24 17:10 DCW [id number]) Manual Assessments Joint Mobility Assessment Joint Mobility Assessment Mild point-specific pain along anteriormedial left knee joint line. Increased stiffness in left hip PT-OP-L Special Tests Start: 01/09/24 17:33 Freq: Status: Active Protocol: Document 03/11/24 17:00 DCW (Rec: 03/11/24 17:10 DCW [id number]) Special Tests Lumbar Spine Special Tests A-P Shearing Test Results Negative Hip Special Tests Scour Test Test Results Negative Piriformis Test Results Mild tightness left JESUS Test Results Negative Knee Special Tests Varus- 25 Degrees Test Results Negative Valgus- 25 Degrees Test Results Negative Patella Tap Test Results Positive left Blanco Test Test Results Negative Bounce Home Test Results Negative Apprehension Test Test Results Negative Anterior Draw Test Results Negative PT-OP-M Strength Start: 01/09/24 17:33 Freq: Status: Active Protocol: Document 01/09/24 16:10 DCW (Rec: 01/10/24 08:39 DCW [id number]) Hip Strength Hip Manual Muscle Testing Right Flexion (L2) 4+ Good+ Abduction 4+ Good+ Adduction 4+ Good+ External Rotation 4 Good Internal Rotation 4- Good- Left Flexion (L2) 4+ Good+ Abduction 4+ Good+ Adduction 4+ Good+ External Rotation 4 Good Internal Rotation 4- Good- Knee Strength Knee Manual Muscle Testing Right Flexion (S2) 4+ Good+ Extension (L3) 4+ Good+ Left Flexion (S2) 4+ Good+ Extension (L3) 4+ Good+ PT-OP-Q Treatments Start: 01/09/24 17:33 Freq: Status: Active Protocol: Document 03/25/24 15:15 DCW (Rec: 03/25/24 16:06 DCW [id number]) Gym Equipment Therapeutic Ball Pelvic Tilts Exercise Details Pelvic tilts/circles Ball Size/Color Red - 55 cm Body Position Sitting Therapeutic Exercises Sitting Exercises Trunk Flexion Sitting Exercise Name Trunk Flexion stretch Reps/Minutes 30 hold x2 Standing Exercises Hip Hiking Standing Exercise Name Hip Hiking Side bilateral Equipment Used 6 steps PT-OP-T Assessment and Plan Start: 01/09/24 17:33 Freq: Status: Active Protocol: Document 03/25/24 15:15 DCW (Rec: 03/25/24 16:06 DCW [id number]) Physical Therapy Assessment Impairments Impairments Functional Activities, Functional Mobility,Pain, Strength,Tone Goals Two Impairment Pt experiences increased left knee pain ascending/descending slope Forward Air Controller/Air Officer Goal (LTG) Pt to exhibit ability to ambulate up and down hills without increased knee pain over two weeks in order to return to prior activity levels. LTG Duration Met One Impairment Pt does not have an appropriate home exercise program Short Term Goal (STG) Pt to be independent and compliant with an appropriate HEP 02/26/24: Pt reports doing home ex's. STG Duration Met Assessment Summary Assessment Pt feeling very good with her knee, happy with current level of function. Has met all goals, appropriate for discharge from skilled therapy at this time. Physical Therapy Plan Frequency and Duration Frequency of Treatment 2x/Week Plan of Care Start Date 03/11/24 Plan of Care End Date 05/11/24 Therapeutic Interventions Therapeutic Interventions Home Exercise Program,Joint Mobilizations,Manual Therapy, Neuromuscular Re-education, Patient/Caregiver Education, Self-Care/Home Management,Soft Tissue Mobilization,Taping, Therapeutic Activities, Therapeutic Exercises Modalities Cold Pack/Ice Massage,Electric Stimulation,Hot Packs, Ultrasound Discharge Physical Therapy Discharge Reasons Goals Met Next Visit Focus/Plan Next Note Type Discharge Summary
== END 2024-03-30 13:39 | disposition home or self-care (01) ==
LOC: PHYS 15:15
PROVIDERS: Family Provider Family Medicine; PCP Family Medicine; Referring Provider Family Medicine; Visit Provider Family Medicine
DX: M25.569 Pain in unspecified knee (principal); M25.562 Pain in left knee; M25.652 Stiffness of left hip, not elsewhere classified
CPT/HCPCS: 97110; 97112; 97140; 97161; 97530; 97535

== ENCOUNTER → 2024-08-26 16:40 | Outpatient (CLI) | payer OTHER, SELFPAY ==
[2024-08-26 19:00] LABS: HCG Quantitative /Beta subunit 117030 mIU/mL
== END ==
PROVIDERS: Family Provider Family Medicine; PCP Family Medicine; Referring Provider Family Medicine; Visit Provider Family Medicine
DX: Z34.93 Encounter for supervision of normal pregnancy, unspecified, third trimester (principal); Z3A.28 28 weeks gestation of pregnancy
CPT/HCPCS: 36415; 84702

== ENCOUNTER → 2024-09-07 12:26 | Outpatient (CLI) | payer OTHER, SELFPAY ==
[2024-09-07 12:50] LABS: Add Manual Diff / Slide Review NO; Basophils Absolute Auto 0 /uL (0-100); Basophils Percent Auto 0.3 % (0-2); Eosinophils Absolute Auto 100 /uL (0-450); Eosinophils Percent Auto 1.3 % (2-4); Hematocrit 36.1 % (36-46); Hemoglobin 12.5 g/dL (12.0-16.0); Lymphocytes Absolute Auto 1300 /uL (1100-4500); Lymphocytes Percent Auto 20.3 % (25-40); Mean Corpuscular HGB Conc 34.7 % (30-36); Mean Corpuscular Volume 86.6 fL (80-100); Monocytes Absolute Auto 400 /uL (0-900); Monocytes Percent Auto 7.1 % (3-14); Neutrophils Absolute Auto 4400 /uL (1500-7000); Platelet Count 174 X10^3/uL (150-400); Red Blood Cell Count 4.16 X10^6/uL (4.0-5.2); Red Cell Distribution Width 13.7 % (11.6-14.8); White Blood Cell Count 6.2 X10^3/uL (4.5-11.0)
[2024-09-07 12:52] LABS: Appearance Urine UA CLEAR; Bilirubin Urine UA NEGATIVE (NEGATIVE); Color Urine UA YELLOW; Glucose Urine UA NEGATIVE (Negative); Ketones Urine UA NEGATIVE (NEGATIVE); Leukocyte Esterase Urine UA NEGATIVE (NEGATIVE); Nitrite Urine UA NEGATIVE (Negative); Occult Blood Urine UA NEGATIVE (Negative); Protein Urine UA NEGATIVE (Negative); Urobilinogen Urine UA 0.2 E.U./dL (0.2)
[2024-09-07 12:56] LABS: pH Urine UA 6.5 (4.5-8.0)
[2024-09-07 13:58] LABS: Vitamin B12 550 pg/mL (239-931)
[2024-09-07 14:19] LABS: Vitamin D 25 Hydroxy (D3) 19.8 ng/mL (30.0-100.0)
[2024-09-07 14:30] LABS: HCG Quantitative /Beta subunit 141190 mIU/mL
[2024-09-08 04:39] LABS: RPR Screen Non Reactive (Non Reactive)
[2024-09-08 14:50] LABS: Hepatitis B Surface Antigen NEGATIVE s/c (NEGATIVE); Rubella Antibody IgG 4.2 IU/mL (>15)
[2024-09-08 15:07] LABS: HIV 1 & 2 Ab/Ag 4th Gen Combo NEGATIVE (NEGATIVE); Hep C Virus Ab w/Reflex Quant NEGATIVE s/c (NEGATIVE)
== END ==
PROVIDERS: Family Provider Family Medicine; PCP Family Medicine; Referring Provider Family Medicine; Visit Provider Family Medicine
DX: Z78.9 Other specified health status (principal); Z3A.28 28 weeks gestation of pregnancy; Z34.90 Encounter for supervision of normal pregnancy, unspecified, unspecified trimester
CPT/HCPCS: 36415; 80055; 81003; 82306; 82607; 84702; 86787; 86803; 86850; 86900; 86901; 87086; 87389

== ENCOUNTER → 2024-09-19 12:03 | Outpatient (CLI) | payer OTHER, SELFPAY ==
[2024-09-19 12:53] LABS: Appearance Urine UA CLEAR; Bilirubin Urine UA NEGATIVE (NEGATIVE); Color Urine UA YELLOW; Glucose Urine UA NEGATIVE (Negative); Ketones Urine UA NEGATIVE (NEGATIVE); Leukocyte Esterase Urine UA NEGATIVE (NEGATIVE); Nitrite Urine UA NEGATIVE (Negative); Occult Blood Urine UA NEGATIVE (Negative); Protein Urine UA NEGATIVE (Negative); Urobilinogen Urine UA 0.2 E.U./dL (0.2)
[2024-09-19 13:01] LABS: pH Urine UA 6.5 (4.5-8.0)
[2024-09-19 13:11] LABS: Amorphous Sediment Urine 1+; Bacteria Urine None Seen; Culture Indicated Urine Cult Not Indicated; RBC Urine None Seen (0-5/HPF); Squamous Epithelial Cell Urine 1-5 /HPF (0-5/HPF); Urine Volume 10mL (spun); WBC Urine 1-5/HPF (0-5/HPF)
== END ==
PROVIDERS: Family Provider Family Medicine; PCP Family Medicine; Referring Provider Family Medicine; Visit Provider Family Medicine
DX: R30.0 Dysuria (principal)
CPT/HCPCS: 81001

== ENCOUNTER → 2024-10-05 16:45 | Outpatient (CLI) | payer OTHER, SELFPAY | PROVIDERS: PCP Family Medicine; Referring Provider Family Medicine; Visit Provider Family Medicine | DX: Z34.83 Encounter for supervision of other normal pregnancy, third trimester (principal); Z3A.28 28 weeks gestation of pregnancy | CPT/HCPCS: 87086 ==

== ENCOUNTER → 2024-11-30 15:31 | Outpatient (CLI) | payer OTHER, SELFPAY ==
--- NOTE | 2024-11-30 15:32 | DI.US.S_ITS ---
PROCEDURE: US OB >= 14 WEEKS FETUS INDICATIONS: anatomy OUTSIDE/PRIOR DATING DATA: Last menstrual period (LMP): June 27, 2024. LMP-based estimated date of delivery (ROSALINDA): April 03, 2025. The calculations are made using the ultrasound ROSALINDA of April 06, 2025. TECHNIQUE: Real-time scanning was performed of the fetus, with image documentation and biometric measurements. Endovaginal scanning: Not performed COMPARISON: [facility], , OB >= 14 WEEKS FETUS, 04/18/2021, 12:30. FINDINGS: General: A single living intrauterine gestation is present. Presentation: Variable. Placenta: Placental position is posterior , without previa. Amniotic fluid index: 17.0 cm, normal range is 5-24 cm. Single deepest vertical pocket is 6.0 cm. heart rate: 150 beats per minute. Maternal cervical canal: 4.6 cm long. Normal lower limit is 2.5 cm. biometrics: Biparietal diameter: 5.1 cm, 21 weeks and 2 days Head circumference: 19.2 cm, 21 weeks and 3 days Abdominal circumference: 17.1 cm, 22 weeks and 0 days Femur length: 4.0 cm, 22 weeks and 5 days Clinically estimated gestational age: 22 weeks and 2 days Composite gestational age from present scan: 21 weeks and 6 days Estimated weight and percentile: 485 g, 39th percentile Anatomic survey: Neuro: Ventricles are non-dilated at less than 10 mm. Cisterna magna is normal at 3-11 mm. Cerebellum is normal in size and morphology. Nuchal skin fold: Normal at less than 6 mm between 14-21 weeks gestational age. Face: Nose and lips, facial profile are normal. Spine: No evidence for spina bifida. Heart: 4-chambered heart is present, with normal ventricular outflow tracts. Diaphragm: Diaphragm is intact. Stomach: Left-sided stomach is present. Kidneys: No hydronephrosis. Normal is less than 5 mm in 2nd trimester, less than 7 mm in 3rd trimester. Cord: 3-vessel cord has orthotopic insertion. Bladder: Normal in size. Extremities: All 4 extremities identified. IMPRESSION: Single living intrauterine gestation with estimated sonographic gestational age of approximately 21 weeks and 6 days versus 22 weeks and 2 days by LMP. Estimated weight of 485 g which correlates with the 39th percentile for gestational age. Expected interval growth has occurred. Normal routine second-trimester anatomy screening survey. We strive to produce accurate, complete, and clear reports of imaging services. To assist us in improving patient care, this report was composed using standard report templates and voice recognition software. Therefore, it may contain abnormal punctuation, insertions and/or omissions. Occasional wrong-word or sound-alike substitutions may occur. Though we review the report and make efforts to correct it, we do recommend that the report be read carefully in proper context to recognize any text inaccuracies. Dictated by: Teo Moser M.D. on 12/01/2024 at 11:54 Approved by: Teo Moser M.D. on 12/01/2024 at 12:17
== END ==
LOC: US 15:32
PROVIDERS: PCP Family Medicine; Referring Provider Family Medicine; Visit Provider Family Medicine
DX: Z34.93 Encounter for supervision of normal pregnancy, unspecified, third trimester (principal); Z3A.28 28 weeks gestation of pregnancy
CPT/HCPCS: 76811

== ENCOUNTER → 2025-01-06 16:31 | Outpatient (CLI) | payer OTHER, SELFPAY ==
[2025-01-06 17:27] LABS: Add Manual Diff / Slide Review NO; Hematocrit 32.0 % (36-46); Hemoglobin 10.7 g/dL (12.0-16.0); Lymphocytes Absolute Auto 1400 /uL (1100-4500); Mean Corpuscular HGB Conc 33.4 % (30-36); Mean Corpuscular Hemoglobin 29.6 PG (26-34); Mean Corpuscular Volume 88.5 fL (80-100); Platelet Count 178 X10^3/uL (150-400)
[2025-01-06 18:25] LABS: GTT (PREG) 1 Hour PP 50gm Dose 169 mg/dL (76-139)
== END ==
PROVIDERS: PCP Family Medicine; Referring Provider Family Medicine; Visit Provider Family Medicine
DX: Z34.93 Encounter for supervision of normal pregnancy, unspecified, third trimester (principal); Z3A.28 28 weeks gestation of pregnancy; Z3A.37 37 weeks gestation of pregnancy
CPT/HCPCS: 36415; 82950; 85025

== ENCOUNTER → 2025-01-25 07:59 | Outpatient (CLI) | payer OTHER, SELFPAY ==
[2025-01-25 10:54] LABS: Glucose 1 Hour 107 mg/dL (70-170)
[2025-01-25 11:29] LABS: Glucose 2 Hour 112 mg/dL (70-140)
[2025-01-25 11:32] LABS: Glucose Tol Interpretation INTERPRETATION
[2025-01-25 12:54] LABS: Glucose 3 Hour 73 mg/dL (70-115)
== END ==
PROVIDERS: PCP Family Medicine; Referring Provider Family Medicine; Visit Provider Family Medicine
DX: Z3A.28 28 weeks gestation of pregnancy (principal)
CPT/HCPCS: 36415; 82951; 82952

== ENCOUNTER → 2025-03-10 16:30 | Outpatient (CLI) | payer OTHER, SELFPAY ==
[2025-03-11 11:11] LABS: Strep Grp B PCR NEG for Grp B Strep
== END ==
PROVIDERS: PCP Family Medicine; Visit Provider Family Medicine
DX: Z34.93 Encounter for supervision of normal pregnancy, unspecified, third trimester (principal); Z3A.28 28 weeks gestation of pregnancy
CPT/HCPCS: 87653

== ENCOUNTER 2025-03-29 04:37 | Inpatient (IN) | payer OTHER, SELFPAY ==
--- NOTE | 2025-03-29 09:44 | P.TNLD_ITS ---
Visit Information Visit Information Date of evaluation: 03/29/25 Primary OB Provider: Tesha Carbajal Comments/Additional reasons for admission: 24yo at 39w2d here for contractions. Pt reports contractions started around 1am, increasing in intensity and frequency since then. Some mild vaginal spotting. No LOF. She is feeling her baby move regularly. [facility] Medical History (Updated 03/29/25 @ 09:46 by Tesha Carbajal MD) Acute blood loss anemia hemorrhage Spontaneous vaginal delivery COVID SAB (spontaneous ) (~08/17/20) Hearing loss (~2013) History of chemotherapy (~01/2014) Germ cell tumor of ovary (~12/2013) Exercise-induced asthma (~2019) SAB (spontaneous ) (~04/04/20) Cancer (~2013) Surgical History History of laparoscopy (~01/20/14) Status post surgery (~02/11/14) History of removal of Port-a-Cath (~05/07/14) Family History (Updated 08/31/24 @ 15:10 by Valeria Knox RN) Mother Hyperlipidemia Twin delivered Father No problems noted. Grandmother Liver problem Grandfather Heart disease Grandmother No problems noted. Grandfather Alcoholism Social History marital status: number of children: 1 household members: spouse, family (brothers in law), children and other lives independently: Yes caregiver/support person: No housing: house pets and animals: Yes (chickens) education level: college (associate's degree) occupational status: employed ([employer] from home) current occupational exposures/hazards: No special yelena needs: No travel history: over 6 months ago seatbelt use: always water heater temp set < 120 deg: Yes working smoke detector in home: Yes fire extinguisher in home: Yes carbon monox detector in home: Yes firearms in home: No do you feel safe at home: Yes second hand exposure: No alcohol intake: former (rarely when not ) substance use type: does not use during the past year weight has: remained stable well-balanced diet: daily or most days daily servings fruits/ve-4 caffeine: Yes (occasional small coffee) Type(s) of exercise: walking Evaluation Evaluation Baseline heart rate: 130 Variability: Moderate (6-25) monitor accelerations: Present Monitor Decelerations: Absent Status: Category l Cervical dilation (cm): 1 station: -3 Diagnosis, Plan/Disposition Final Diagnosis (1) Uterine contractions: Status: Acute (2) 39 weeks gestation of : Status: Acute Plan/Disposition Plan: 24yo at 39w2d here for contractions. Confirmed vertex on bedside u/s. No significant cervical change - early labor still. Pt will continue ambulating, etc, outside the hospital. Return precautions discussed. OB Disposition: home
[2025-03-29 10:05] VITALS: BP 113/78
[2025-03-29 10:48] LABS: Add Manual Diff / Slide Review NO; Hematocrit 32.0 % (36-46); Hemoglobin 10.3 g/dL (12.0-16.0); Lymphocytes Absolute Auto 1100 /uL (1100-4500); Mean Corpuscular HGB Conc 32.3 % (30-36); Mean Corpuscular Hemoglobin 24.1 PG (26-34); Mean Corpuscular Volume 74.6 fL (80-100); Platelet Count 166 X10^3/uL (150-400)
--- NOTE | 2025-03-29 16:11 | P.HPOB_ITS ---
OB HPI Date/Time Date of admission: 03/29/25 Date Patient Seen: 03/29/25 History of Present Condition Chief complaint: NST ROSALINDA Calculator 2 Estimated Delivery Date Method Current WG Current Estimate 04/03/25 LMP (Certain) 39w 2d Other Estimates 04/09/25 Ultrasound #1 38w 3d Estimated Gestational Age (weeks): 39w2d : 6 Para: 1 Narrative: Pt is a 24yo at 39w2d here with contractions. Pt reports contractions started around 1am, increasing in intensity and frequency since then. Some mild vaginal spotting. No LOF. She is feeling her baby move regularly. The pts has been complicated by significant varicose veins in her lower extremities. care: good care, initiated at week # (10) and pounds weight gain (25) Dating criteria OB: LMP confirmed by 1st trimester US Ultrasounds: normal 1st trimester US and normal mid trimester US Obstetrical complications: none Medical complications OB: none Preadmission Labs Last OB Lab Results: 2 Blood Type O Positive Today, 10:05 Antibody Screen Negative Today, 10:05 Hct, (36-46) 32.0 % L Today, 10:05 Hgb, (12.0-16.0) 10.3 g/dL L Today, 10:05 Hep Bs Antigen, (NEGATIVE) Negative s/c 09/07/24, 12: 31 Hepatitis C Antibody, (NEGATIVE) Negative s/c 5, 12:31 Rubella Antibody, (>15) 4.2 IU/mL L 09/07/24, 12:31 VZV IgG Antibody Reactive 09/07/24, 12:31 Glucose 1 Hr 50 gm, (76-139) 169 mg/dL H 01/06/25, 1 7:51 Hemoglobin A1c, (4.0-6.0) 5.0 % 03/21/24, 09:5 0 Group B Strep (PCR) Neg for grp b strep 03/10/25, 16:30 Glucose Tolerance Testing: Fasting (73), 1 hr (107), 2 hr (112) and 3 hr (73) -: Urine: negative External Labs -: Urine: negative Prior (ies) Past Pregnancies Del. Date GA/Weeks Labor Lgth Wt Sex Route Outcome Anesthesia Place Delv Breastfeed Preg Comp Name 04/04/20 7 spontaneous 08/17/20 8.4 spontaneous [place] 08/14/21 40 6 Male vaginal live - full term none IH Still going as of 08/31/24 Gabriel 01/22/23 6-7 spontaneous 02/24/24 4 spontaneous Delivery Date: 04/04/20 Last Updated by: Rosa Maria Rosenberg R.N. *Missed-Ab. Delivery Date: 08/17/20 Last Updated by: Rosa Maria Rosenberg R.N. *Coping OK as a couple. Delivery Date: 01/22/23 Last Updated by: Valeria Knox RN Passed spontaneously, no complications Evaluation Evaluation Baseline heart rate: 140 Variability: Moderate (6-25) monitor accelerations: Present Monitor Decelerations: Absent Contraction Frequency (minutes): 2 Status: Category l Dilation (cm): 4 Effacement (%): 70 station: -3 Position of cervix: posterior Consistency: soft [facility] Medical History (Updated 03/29/25 @ 09:46 by Tesha Carbajal MD) Acute blood loss anemia hemorrhage Spontaneous vaginal delivery COVID SAB (spontaneous ) (~08/17/20) Hearing loss (~2013) History of chemotherapy (~01/2014) Germ cell tumor of ovary (~12/2013) Exercise-induced asthma (~2019) SAB (spontaneous ) (~04/04/20) Cancer (~2013) Surgical History History of laparoscopy (~01/20/14) Status post surgery (~02/11/14) History of removal of Port-a-Cath (~05/07/14) Family History (Updated 08/31/24 @ 15:10 by Valeria Knox RN) Mother Hyperlipidemia Twin delivered Father No problems noted. Grandmother Liver problem Grandfather Heart disease Grandmother No problems noted. Grandfather Alcoholism Social History marital status: number of children: 1 household members: spouse, family (brothers in law), children and other lives independently: Yes caregiver/support person: No housing: house pets and animals: Yes (chickens) education level: college (associate's degree) occupational status: employed ([employer] from home) current occupational exposures/hazards: No special yelena needs: No travel history: over 6 months ago seatbelt use: always water heater temp set < 120 deg: Yes working smoke detector in home: Yes fire extinguisher in home: Yes carbon monox detector in home: Yes firearms in home: No do you feel safe at home: Yes second hand exposure: No alcohol intake: former (rarely when not ) substance use type: does not use during the past year weight has: remained stable well-balanced diet: daily or most days daily servings fruits/ve-4 caffeine: Yes (occasional small coffee) Type(s) of exercise: walking Meds Home Medications and Allergies Home Medications ?Medication ?Instructions ?Recorded ?Confirmed ?Type vitamin-ferrous sulfate tab PO 08/31/2403/24 History 27 mg iron-folic acid 0.8 mg tablet Allergies Allergy/AdvReac Type Severity Reaction Status Date / Time No Known Drug Allergies Allergy Verified 03/24/25 16:17 OB Exam Resp Effort & Inspection: normal respiratory effort Auscultation: clear to auscultation bilaterally Cardio Rate: regular rate Rhythm: regular rhythm Heart Sounds: S1 normal, S2 normal and no murmurs GI Inspection: non-distended Palpation: Yes soft and No tender Presentation: vertex Objective Labs 03/29/25 10:05 Labs: Laboratory Results - last 24 hr 03/29/25 10:05 WBC 9.0 RBC 4.29 Hgb 10.3 L Hct 32.0 L MCV 74.6 L MCH 24.1 L MCHC 32.3 RDW 17.5 H Plt Count 166 Neut % (Auto) 80.2 H Lymph % (Auto) 11.7 L [place] % (Auto) 7.6 Eos % (Auto) 0.2 L Baso % (Auto) 0.3 Neut # (Auto) 7200 H Lymph # (Auto) 1100 [place] # (Auto) 700 Eos # (Auto) 0 Baso # (Auto) 0 Blood Type O Positive Antibody Screen Negative Assessment and Plan Assessment and Plan Assessment and Plan narrative: Pt is a 24yo at 39w2d here in active labor. GBS negative, Rh positive. - Expectant management, anticipate - GBS negative, no prophylaxis indicated - FHT reassuring - Desires natural methods for pain control Time-Based Coding :: [TOTAL MINUTES] spent with patient and on the chart (including review of chart, obtaining history, exam, reviewing outside data, placing orders, documenting exam and treatment plan, and counseling patient) on [DATE].
--- NOTE | 2025-03-29 16:29 | PM.OBPNLAB ---
Date/Time Date Patient Seen: 03/29/25 Pain Control Pain control: tolerating well Pelvic Exam Dilation (cm): 6 Effacement (%): 70 station: -2 Amniotic membrane status: Ruptured Comments: After informed consent, AROM performed with meconium-stained fluid present Contractions Contractions on admission: regular Monitor mode: External Contraction frequency (min): 2 Status status: Category l Heart Rate Baseline: 140 Monitor Accelerations: Present Monitor Decelerations: Absent Monitor Variability: Moderate Assessment and Plan Comments: Pt is a 24yo at 39w2d here in active labor. GBS negative, Rh positive. AROM performed with meconium stained fluid present. - Expectant management, anticipate - FHT reassuring - Desires natural methods for pain control
[2025-03-29] MEDS: OXYTOCIN PREMIX 30 UNIT/500 ML PLAST..BAG 200 UNIT IV (19:40)
[2025-03-29] MEDS: LIDOCAINE 1% 20 ML INJ (19:40)
--- NOTE | 2025-03-29 19:54 | PM.OBPRVD ---
Labor & Delivery Delivery date: 03/29/25 Intrapartal Events: None Cervical ripening method: none Induction method: none Delivery augmentation: rupture of membranes Delivery monitor: external FHT and external uterine Route of delivery: Episiotomy description: None L&D Laceration Description: Vaginal - 2nd Degree Quantitative Blood Loss: 724 Anesthesia Type: None Complications: hemorrhage Narrative: PROCEDURE: at 39w2d presented in active labor and was admitted to Labor and Delivery. The patient progressed through the 1st stage over 3 hours. AROM occured at 16:01 with meconium-stained fluid. Pain was controlled with natural mehtods. The patient progressed through the 2nd stage over 26 minutes and delivered a viable male infant with APGARs 9/9 at 19:10 via . The cord was cut and clamped after it stopped pulsating. The placenta delivered with gentle cord traction, and appeared complete. The perineum and vagina were inspected with deep left sulcal laceration extending into pts varicose vein. There was heavy bleeding. 2-0 Vicryl was used to repair the laceration. A secondary small laceration was noted on the left lateral vaginal wall that was pulsing blood. This was repaired with a [id number] with 4-O Chromic. Needle and sponge counts were correct.? The vagina was inspected and no items were left in situ. Melvi was doing well with her and , Gabriel, at bedside. PREPROCEDURE DIAGNOSIS: Intrauterine at 39w2d GBS negative RH positive POSTPROCEDURE DIAGNOSIS: Intrauterine at 39w2d, delivered Same as preprocedure hemorrhage Baby 1: Infant gender: Male Presentation: vertex Position: Transverse Placenta delivery description: Spontaneous Cord Vessel Description: 3 Vessels score (1 min): 9 score (5 min): 9 weight: 7 lb 1.476 oz Plan for aftercare: Routine care
[2025-03-29] MEDS: DERMOPLAST SPRAY 20% 60 ML 1 SPRAY TOP (22:37)
[2025-03-29] MEDS: LANOLIN OINT 7 GM 1 APPLIC TOP (22:38)
[2025-03-29] MEDS: LACTATED RINGERS 1,000 ML 100 ML IV (22:38)
[2025-03-30] MEDS: ACETAMINOPHEN 325 MG TABLET 650 MG PO ×3 (01:33→13:40)
[2025-03-30] MEDS: IBUPROFEN 600 MG TABLET PO ×2 (04:07→10:10)
--- NOTE | 2025-03-30 07:19 | PC.NURSE ---
Report given to STU Nuñez
[2025-03-30 07:30] LABS: Hematocrit 26.1 % (36-46); Hemoglobin 8.3 g/dL (12.0-16.0)
--- NOTE | 2025-03-30 08:33 | PM.OBDS.1 ---
Discharge Providers Provider Date of admission: 03/29/25 04:37 Discharge Date: 03/30/25 Primary care physician: Tesha Carbajal MD Consults: 03/29/25 10:35 Consult to Anesthesiology Urgent Comment: Consulting Provider: Argelia Lim Reason for consultation: Epidural 03/29/25 20:30 Consult to Rejected Items Clerk Routine Comment: Discharge provider: Tesha Carbajal MD Summary Hospital Course Date Patient Seen: 03/30/25 Diagnoses: 39w2d gestation GBS negative Rh positive hemorrhage Acute blood loss anemia Hospital Course: The pt presented in active labor. She used natural methods for pain control. AROM was performed with meconium-stained fluid present. She progressed to complete dilation and had an of a viable baby boy. After delivery, a deep left sulcal and left labial laceration were bleeding heavily and repaired. , there were no additional complications. At the time of discharge she was voiding, ambulating, and passing flatus without difficulty. Her lochia was decreasing appropriately. Her pain was well controlled. She was with good latch. She will continue an iron supplement at home. She will f/u in 6 weeks for check. Peripartum Data Infant Delivery Method: Natural Vaginal Laceration Description: Vaginal - 2nd Degree Episiotomy description: None Procedures: Spontaneous vaginal delivery Jackson 1: Gender: Male Discharge Diagnosis (1) 39 weeks gestation of : Status: Acute Time Spent with Patient Time attestation: Total time spent providing and/or coordinating discharge services: Objective Labs 03/30/25 07:20 Labs: Laboratory Results - last 24 hr 03/29/25 03/30/25 10:05 07:20 WBC 9.0 RBC 4.29 Hgb 10.3 L 8.3 L Hct 32.0 L 26.1 L MCV 74.6 L MCH 24.1 L MCHC 32.3 RDW 17.5 H Plt Count 166 Neut % (Auto) 80.2 H Lymph % (Auto) 11.7 L [place] % (Auto) 7.6 Eos % (Auto) 0.2 L Baso % (Auto) 0.3 Neut # (Auto) 7200 H Lymph # (Auto) 1100 [place] # (Auto) 700 Eos # (Auto) 0 Baso # (Auto) 0 Blood Type O Positive Antibody Screen Negative Exam Narrative Exam Narrative: Gen: NAD, sitting comfortably in bed, appears well CV: RRR, no murmurs Resp: clear to auscultation bilaterally Abd: soft, appropriately tender, fundus firm and below the umbilicus, nondistended Ext: no edema Discharge Plan Discharge Plan Patient Disposition: Home Discharge orders & Medications Prescriptions: New sennosides [senna] 8.6 mg Tablet 17.2 mg PO BEDTIME PRN (Reason: Constipation) Qty: 30 0RF ferrous sulfate 325 mg (65 mg iron) Tablet 325 mg PO DAILY Qty: 30 0RF Continued vit-ferrous sulfat-FA 27 mg iron- 0.8 mg tablet 1 tab PO PRN PRN (Reason: provider order ) Follow up/Referrals: Tesha Carbajal MD [Primary Care Provider, Family Practice] - 6 Weeks Diet/Activity/Treatments Diet: Diet as Tolerated and Regular Skin/Wound/Dressing Care Report to your healthcare provider any signs of infection, such as:: chills, fever, increased pain and unusual drainage Visit Report/Discharge Packet Instructions: DI for Labor and Delivery, Vaginal Stand Alone Forms: Discharge: Care, Patient Portal/API, Stroke Signs & Symptoms Discharge Data Primary Care Provider: Tesha Carbajal
[2025-03-30] MEDS: PRENATAL VIT,CALC/IRON/FOLIC 1 TABLET 1 TAB PO (10:10)
[2025-03-30] MEDS: FERROUS SULFATE 325 MG TABLET PO (10:11)
== END 2025-03-30 15:15 | disposition home or self-care (01) | DRG 560 ==
PROVIDERS: Admitting Provider Student in an Organized Health Care Education/Training Program; PCP Family Medicine; Referring Provider Family Medicine; Visit Provider Student in an Organized Health Care Education/Training Program
DX: O70.1 Second degree perineal laceration during delivery (principal); D62 Acute posthemorrhagic anemia; O90.81 Anemia of the puerperium; Z3A.39 39 weeks gestation of pregnancy; Z37.0 Single live birth; Z67.40 Type O blood, Rh positive
CPT/HCPCS: 36415; 59050; 85014; 85018; 85025; 86850; 86900; 86901; G0379; J2590; J7120